=== PATIENT | female | born 1990 | race Caucasian/White ===

== ENCOUNTER 2020-02-22 13:57 | Outpatient (CLI) | payer OTHER, SELFPAY ==
--- NOTE | ~2020-02-22 | US_ITS ---
US breast LT limited DATE: 02/22/2020 14:18 INDICATION: Left breast lump. Family history of breast cancer on maternal side is 35 years old TECHNIQUE: High-resolution ultrasound imaging and color flow imaging targeted at area of clinical com plaint at 10:00 8 cm from nipple COMPARISON: None FINDINGS: There is a parallel circumscribed complicated 18 x 12 x 6 mm cystic lesion with variable th ickness wall. No internal vascularity is noted. There is through transmission and posterior enhanceme nt. This is probably benign. No suspicious mass or shadowing is evident. IMPRESSION: BI-RADS BI-RADS category 3: Probably benign cyst at 10:00 8 cm from nipple Recommendation: 4-6 month left breast ultrasound follow-up Reviewed, dictated and finalized at [facility] Reviewed, dictated and finalized at [facility].
== END 2020-02-22 13:58 | disposition home or self-care (01) ==
LOC: ANHIMG 14:00
PROVIDERS: Visit Provider Obstetrics & Gynecology
DX: N63.20 Unspecified lump in the left breast, unspecified quadrant (principal); R92.8 Other abnormal and inconclusive findings on diagnostic imaging of breast
CPT/HCPCS: 76642

== ENCOUNTER 2020-07-01 09:32 | Outpatient (CLI) | payer OTHER, SELFPAY | END 2020-07-01 09:33 | disposition home or self-care (01) | DX: Z20.828 Contact with and (suspected) exposure to other viral communicable diseases (principal); Z11.59 Encounter for screening for other viral diseases | CPT/HCPCS: 99199; 36415; 86769 ==

== ENCOUNTER 2020-07-22 12:33 | Outpatient (CLI) | payer OTHER, SELFPAY | END 2020-07-22 12:34 | disposition home or self-care (01) | PROVIDERS: Visit Provider Allergy & Immunology | DX: Z91.018 Allergy to other foods (principal) | CPT/HCPCS: 36415; 86003 ==

== ENCOUNTER 2020-10-25 13:59 | Outpatient (CLI) | payer OTHER, SELFPAY ==
[2020-10-25 14:35] LABS: Hematocrit 42.1 % (37.0-47.0); Hemoglobin 14.5 g/dL (12.0-15.0); Mean Corpuscular HGB Conc 34.4 g/dl (32-36); Mean Corpuscular Hemoglobin 30.5 pg (26-34); Mean Corpuscular Volume 88.4 fl (80-100); Mean Platelet Volume 9.3 fl (7.4-10.4); Platelet Count Result 289 k/mm3 (150-375); Red Blood Count 4.76 M/mm3 (4.2-5.4); Red Cell Distribution Width 12.4 % (11.5-14.5); White Blood Count 10.1 K/mm3 (4.5-10.0)
[2020-10-25 15:08] LABS: Erythrocyte Sedimentation Rate 18 mm/hr (0-20)
[2020-10-25 16:32] LABS: Alanine Aminotransferase 17 U/L (4-35); Albumin Level 4.4 g/dL (3.5-5.1); Alkaline Phosphatase 60 U/L (38-126); Anion Gap 7 mmol/L (8-16); Aspartate Amino Transferase 25 U/L (14-36); Bilirubin,Total 0.3 mg/dL (0.2-1.3); Blood Urea Nitrogen 11 mg/dL (7-17); CRP 1.1 mg/dL (<1.0); Calcium 9.1 mg/dL (8.4-10.2); Carbon Dioxide 29 mmol/L (22-30); Chloride 105 mmol/L (98-107); Estimated Glomerular Filt Rate > 60; Glucose 117 mg/dL (65-105); Potassium 3.6 mmol/L (3.4-5.0); Sodium 141 mmol/L (137-145)
== END 2020-10-25 14:00 | disposition home or self-care (01) ==
PROVIDERS: Visit Provider Nurse Practitioner Family
DX: R10.9 Unspecified abdominal pain (principal); R19.7 Diarrhea, unspecified
CPT/HCPCS: 36415; 80053; 85027; 85652; 86140

== ENCOUNTER → 2020-11-22 02:22 | Outpatient (CLI) | payer OTHER, SELFPAY ==
[2020-11-22 19:11] LABS: SARS-CoV-2 RNA PCR Negative
== END ==
PROVIDERS: Visit Provider Internal Medicine Gastroenterology
DX: Z01.812 Encounter for preprocedural laboratory examination (principal); Z20.822 Contact with and (suspected) exposure to COVID-19
CPT/HCPCS: C9803; U0003; U0005

== ENCOUNTER 2020-11-25 02:03 | Day surgery (SDC) | payer OTHER, SELFPAY ==
[2020-11-19 15:35] VITALS: BMI 40.0
[2020-11-25 07:59] VITALS: BP 127/91; PULSE 82; RESP 20; TEMP 36.4; O2SAT 99
--- NOTE | 2020-11-25 07:59 | WPDANESEPPF ---
Anes - Initial Pre Proc Eval Procedure: Operation Date: 11/25/20 09:00 Proposed Procedures p Esophagogastroduodenoscopy & Colonoscopy - Gustabo Ferris MD Date/Time: 11/25/20 07:59 Surgeon: Gustabo Ferris MD Pre Op Diagnosis: diarrhea, blood in stool, nausea Patient Data Age: 30 Gender: F Height: 5 ft 7 in Weight: 115.9 kg Allergies Allergy/AdvReac Type Severity Reaction Status Date / Time tree nut Allergy Swelling Verified 11/25/20 07:58 of Lip/Tongue/Throat Home Medications Medication Instructions Recorded Confirmed Type dextroamphetamine-amphetamine 20 mg PO BID 07/03/19 11/19/20 History [Adderall] ascorbic acid (vitamin C) 500 mg 500 mg PO DAILY 06/27/20 11/19/20 History capsule cholecalciferol (vitamin D3) 10 10 mcg PO DAILY 06/27/20 11/19/20 History mcg (400 unit) capsule cyanocobalamin (vitamin B-12) 1,000 mcg PO DAILY 06/27/20 11/19/20 History 1,000 mcg capsule zinc 50 mg tablet 50 mg PO DAILY 06/27/20 11/19/20 History epinephrine 11/19/20 History ondansetron HCl 4 mg tablet 4 mg PO Q6H PRN #60 tablet 11/21/20 11/25/20 Rx Patient hx anesthesia problems: none Family hx anesthesia problems: none PMFSH Past Medical History Medical History Abdominal pain ADHD Arizmendi esophagus Diarrhea Surgical History Surgical History History of delivery Family History Family History Father Skin cancer Grandparent Skin cancer Sibling Skin cancer Social History Social History Smoking status: Never smoker Alcohol intake: never Substance use: never Substance use type: does not use Living arrangements: with family Spiritual care concerns: No Anes - Eval Final PreProcedure Day of Procedure 11/25/20 07:59 Patient weight: morbidly obese Heart: regular rate and rhythm Lungs: clear to auscultation Airway: Mallampati scale class II Neurological: alert and oriented Last oral intake: >/= 8 hours ASA classification: III Emergent: no Anesthetic plan: proceed Anesthesia type and monitoring: general GIVS and standard monitoring Informed Consent: The patient's anesthetic plan and its attendant risks and benefits were discussed with the patient/family/POA. Questions were solicited and answers provided to the satisfaction of the patient/family/POA.
[2020-11-25] MEDS: LACTATED RINGERS 1,000 ML 150 ML IV CONT (08:13)
--- NOTE | 2020-11-25 08:40 | PM.HPGS ---
History of Present Illness History of Present Illness Consent: Risks, benefits, and alternatives have been discussed and questions answered. Patient agrees to proceed with procedure. Chief complaint: diarrhea, blood in stool, nausea Narrative: Madonna Lam is a 30 year old female was diagnosed with Arizmendi's esophagus several years ago. Recently she had bloody diarrhea the last over 2 weeks. She had not been on antibiotics prior to that. Gradually her symptoms have subsided Review of Systems Review of Systems: All systems reviewed & are unremarkable except as noted in HPI and below PMFSH Past Medical History Medical History Abdominal pain ADHD Arizmendi esophagus Diarrhea Surgical History Surgical History History of delivery Family History Family History Father Skin cancer Grandparent Skin cancer Sibling Skin cancer Social History Social History Smoking status: Never smoker Alcohol intake: never Substance use: never Substance use type: does not use Living arrangements: with family Spiritual care concerns: No Meds Home Medications and Allergies Home Medications Medication Instructions Recorded Confirmed Type dextroamphetamine-amphetamine 20 mg PO BID 07/03/19 11/19/20 History [Adderall] ascorbic acid (vitamin C) 500 mg 500 mg PO DAILY 06/27/20 11/19/20 History capsule cholecalciferol (vitamin D3) 10 10 mcg PO DAILY 06/27/20 11/19/20 History mcg (400 unit) capsule cyanocobalamin (vitamin B-12) 1,000 mcg PO DAILY 06/27/20 11/19/20 History 1,000 mcg capsule zinc 50 mg tablet 50 mg PO DAILY 06/27/20 11/19/20 History epinephrine 11/19/20 History ondansetron HCl 4 mg tablet 4 mg PO Q6H PRN #60 tablet 11/21/20 11/25/20 Rx Allergies Allergy/AdvReac Type Severity Reaction Status Date / Time tree nut Allergy Swelling Verified 11/25/20 07:58 of Lip/Tongue/Throat Vital Signs Vital Signs - 24 hr 11/25/20 07:59 Temperature 36.4 C Pulse Rate 82 Respiratory Rate 20 Blood Pressure 127/91 H Pulse Oximetry 99 Exam Resp: Auscultation: clear to auscultation bilaterally Cardio: Rate: regular rate Rhythm: regular rhythm GI: GI Palp: Yes Soft to palpation and No Tenderness to palpation present (GI) Assessment and Plan Assessment and plan (1) Arizmendi esophagus: Code(s): K22.70 - Arizmendi's esophagus without dysplasia Status: Acute Assessment and Plan: EGD with possible biopsy or dilatation or cautery. (2) Diarrhea: Code(s): R19.7 - Diarrhea, unspecified Status: Acute Assessment and Plan: Colonoscopy with possible biopsy or polypectomy or cautery or injection of substances.
[2020-11-25 09:19] VITALS: BP 101/57; PULSE 73; RESP 24; O2SAT 97
[2020-11-25 09:29] VITALS: BP 117/79; PULSE 85; RESP 22; O2SAT 100
[2020-11-25 09:39] VITALS: BP 122/84; PULSE 78; RESP 23; O2SAT 100
== END 2020-11-25 09:52 | disposition home or self-care (01) ==
PROVIDERS: Visit Provider Internal Medicine Gastroenterology
PROC: 0DJ08ZZ Inspection of Upper Intestinal Tract, Via Natural or Artificial Opening Endoscopic (ICD-10-PCS; CPT 43235; principal; 2020-11-25 09:00)
DX: K52.9 Noninfective gastroenteritis and colitis, unspecified (principal); K21.9 Gastro-esophageal reflux disease without esophagitis; K57.30 Diverticulosis of large intestine without perforation or abscess without bleeding; K22.70 Barrett's esophagus without dysplasia; R11.2 Nausea with vomiting, unspecified; F90.9 Attention-deficit hyperactivity disorder, unspecified type; E66.01 Morbid (severe) obesity due to excess calories; Z68.41 Body mass index [BMI] 40.0-44.9, adult
CPT/HCPCS: 43239; 45380; 87081; 88305; 88313; J2704; J7120

== ENCOUNTER 2021-12-14 10:02 | Emergency (ER) | payer SELFPAY ==
[2021-12-14 10:08] VITALS: BP 128/87; PULSE 83; RESP 20; TEMP 36.4; O2SAT 98
--- NOTE | 2021-12-14 10:23 | ED.GENADULT ---
HPI - General Adult General Chief complaint: Abdominal Pain Stated complaint: Abdominal Pain Time Seen by Provider: 12/14/21 10:23 Source: patient, RN notes reviewed and old records reviewed Mode of arrival: ambulatory Limitations: no limitations History of Present Illness HPI narrative: 31-year-old female who presents to [facility] with complaints of lower back pain and pelvic pressure which started on with burning with urination, states that pain is constant but is worse with urination. Patient reports that she had 100.7F temperature at 0100am today and took some Ibuprofen and also has taken AZO. [facility] and then on Wednesday took misoprostol tabs 4 as directed. Patient reports that they did ultrasound on her and informed her that she had cysts on her ovaries. She reports that she is suppose to follow up with Dr Varghese Barrett on Wednesday. Patient reports that vaginal bleeding is like her regular period flow. Related Data Home Medications Medication Instructions Recorded Confirmed dextroamphetamine-amphetamine 20 mg PO BID 07/03/19 12/14/21 [Adderall] ascorbic acid (vitamin C) 500 mg 500 mg PO DAILY 06/27/20 12/14/21 capsule cholecalciferol (vitamin D3) 10 10 mcg PO DAILY 06/27/20 12/14/21 mcg (400 unit) capsule cyanocobalamin (vitamin B-12) 1,000 mcg PO DAILY 06/27/20 12/14/21 1,000 mcg capsule zinc 50 mg tablet 50 mg PO DAILY 06/27/20 12/14/21 epinephrine 1 ml SUBCUT PRN 11/19/20 12/14/21 Allergies Allergy/AdvReac Type Severity Reaction Status Date / Time tree nut Allergy Swelling Verified 12/14/21 10:21 of Lip/Tongue/Throat Review of Systems Review of Systems: CONSTITUTIONAL: Positive episode of fever early this morning, no chills, or sweats. EYES: Denies visual changes, redness, or discharge. ENT: Denies rhinorrhea, congestion, sore throat, or otalgia. CARDIOVASCULAR: Denies chest pain, palpitations, or edema. RESPIRATORY: Denies cough or dyspnea. GASTROINTESTINAL: lower abdominal pain/pressure,episode X1 of nausea, vomiting, no diarrhea. GENITOURINARY: Positive for dysuria or hematuria. SKIN: Denies rash or itching. MUSCULOSKELETAL: Lower back pain, no joint pain, or myalgia. NEUROLOGIC: Denies headache, numbness, or weakness. PSYCHIATRIC: Denies anxiety or depression. All systems reviewed & are unremarkable except as noted in HPI and below PMFSH Past Medical History Medical History Abdominal pain ADHD Arizmendi esophagus Diarrhea Surgical History Surgical History History of delivery Family History Family History Father Skin cancer Grandparent Skin cancer Sibling Skin cancer Grandparent Family history of malignant neoplasm Family history of malignant neoplasm of ovary Diabetes mellitus Mother Family history of malignant neoplasm of kidney Social History Social History Smoking status: Never smoker Alcohol intake: never Substance use: never Substance use type: does not use Spiritual care concerns: No Comments At time of signature, agree with nursing past medical, surgical, social and family history. There is no relevant family history pertinent to the presenting complaint Exam Narrative: GENERAL: Well-appearing, well-nourished,obese and in no acute distress. HEAD: Normocephalic, atraumatic. EYES: PERRLA and EOMI. ENT: Nares clear, no rhinorrhea or epistaxis. Mucous membranes moist. NECK: Supple.no lymphadenopathy CHEST: Clear to auscultation. No respiratory distress.no tachypnea SAO2 98% on room air HEART: Regular rate and rhythm. No murmur heard. Normal peripheral pulses. ABDOMEN: Soft, tender lower abdomen pelvic pressure, no McBurney point tender
== END 2021-12-14 11:09 | disposition home or self-care (01) ==
PROVIDERS: Emergency Provider Registered Nurse
DX: N39.0 Urinary tract infection, site not specified (principal); F90.9 Attention-deficit hyperactivity disorder, unspecified type; K22.70 Barrett's esophagus without dysplasia
CPT/HCPCS: 81003; 87077; 87086; 87186; 99213; G0463

== ENCOUNTER 2022-02-20 17:17 | Emergency (ER) | payer OTHER, SELFPAY ==
[2022-02-20 17:32] VITALS: BP 140/90; PULSE 93; RESP 16; TEMP 36.1; O2SAT 99
--- NOTE | 2022-02-20 18:26 | ED.HA ---
HPI - Headache General Chief Complaint: Headache Stated Complaint: head pounding light sensitive Time Seen by Provider: 02/20/22 18:26 Source: patient Mode of arrival: ambulatory Limitations: no limitations History of Present Illness HPI Narrative: 31 yo F presents with c/o severe headache for 2 to 3 days, worse to L side. Has felt congested so taking sinus meds with no relief. Also c/o light sensitivity, nausaea. Taking ibuprofen and tylenol with no relief of pain. +nausea at times. Wearing sunglasses. No hx of migraines. Denies fever/chills. ambulatory with steady gait. Speaking in full sentences. Laughing and talkative. All systems reviewed and negative except as noted above. Related Data Home Medications Medication Instructions Recorded Confirmed dextroamphetamine-amphetamine 20 20 mg PO TID 02/20/22 02/21/22 mg tablet Allergies Allergy/AdvReac Type Severity Reaction Status Date / Time tree nut Allergy Swelling Verified 02/21/22 05:28 of Lip/Tongue/Throat Review of Systems Review of Systems: CONSTITUTIONAL: Denies fever, chills, or sweats. EYES: Denies visual changes, redness, or discharge. ENT: Denies rhinorrhea. Reports congestion. Denies sore throat, or otalgia. CARDIOVASCULAR: Denies chest pain, palpitations, or edema. RESPIRATORY: Denies cough or dyspnea. GASTROINTESTINAL: Denies abdominal pain. Reports nausea. Denies vomiting, or diarrhea. GENITOURINARY: Denies dysuria or hematuria. SKIN: Denies rash or itching. MUSCULOSKELETAL: Denies back pain, joint pain, or myalgia. NEUROLOGIC: Reports headache. Denies numbness, or weakness. PSYCHIATRIC: Denies anxiety or depression. All other systems reviewed are negative, except as documented in HPI. [facility]LY [facility] Past Medical History Medical History Abdominal pain ADHD Arizmendi esophagus Diarrhea Headache Surgical History Surgical History History of delivery Family History Family History Father Skin cancer Grandparent Skin cancer Sibling Skin cancer Grandparent Family history of malignant neoplasm Family history of malignant neoplasm of ovary Diabetes mellitus Mother Family history of malignant neoplasm of kidney Social History Social History Smoking status: Never smoker Alcohol intake: never Substance use: never Substance use type: does not use Spiritual care concerns: No Comments At time of signature, agree with nursing past medical, surgical, social and family history. There is no relevant family history pertinent to the presenting complaint. Exam Narrative: GENERAL: This is a well-nourished, well-developed patient, in no apparent distress. HEAD: normocephalic, atraumatic. EYES: PERRL. Sclera clear/white. Vision is grossly intact. EARS: External ears normal, auditory canals clear and without drainage, mild fluid to bilateral TMs. No erythema. NOSE: External nose normal with clear nasal drainage both nares with erythema and mild swelling. Tenderness to left maxillary sinus. THROAT: Mucous membranes moist, clear postnasal drainage. NECK: Neck supple, non-tender without lymphadenopathy, masses or thyromegaly. CARDIOVASCULAR: Regular rate and rhythm without murmurs, gallops, or rubs. RESPIRATORY: Clear to auscultation. Breath sounds equal bilaterally. No wheezes, rales, or rhonchi. SKIN: warm, Dry, intact with no suspicious lesions or rash, good texture and turgor. NEURO: awake, alert, and oriented to person, place and time. There were no obvious focal neurologic abnormalities. EXTREMITIES: No joint tenderness, effusion, or edema noted. Course Course Level of Care: Express Care Visit Vital Signs Vital signs: Vital Signs Temperature 36.1 C L 02/20/22 17:32 Pulse Rate 93
[2022-02-20] MEDS: KETOROLAC (*BKC) 60 MG/2 ML VIAL IM (18:38)
[2022-02-20] MEDS: diphenhydrAMINE HCl CAP 25 MG CAPSULE PO (18:38)
[2022-02-20] MEDS: ONDANSETRON HCL ODT 4 MG TABLET SUBLINGUAL (18:39)
== END 2022-02-20 19:05 | disposition home or self-care (01) ==
PROVIDERS: Emergency Provider Nurse Practitioner Family
DX: J01.90 Acute sinusitis, unspecified (principal); Z20.822 Contact with and (suspected) exposure to COVID-19; F90.9 Attention-deficit hyperactivity disorder, unspecified type; K22.70 Barrett's esophagus without dysplasia
CPT/HCPCS: 87426; 96372; 99213; A9270; C9803; G0463; J1885

== ENCOUNTER 2022-02-21 05:24 | Emergency (ER) | payer OTHER, SELFPAY ==
--- NOTE | ~2022-02-21 | CT_ITS ---
EXAMINATION: CT brain wo con DATE: 02/21/2022 06:50 INDICATION: Headache for 4 days TECHNIQUE: Computed tomography (CT) of the head was performed without intravenous contrast. The mA wa s adjusted according to patient size. Iterative reconstruction technique was employed. Exam dose: 68 1.00 mGy-cm total exam DLP. COMPARISON: None FINDINGS: No intracranial mass lesion or hemorrhage or cerebrovascular accident. No midline shift or mass effect. Normal ventricular size.. No subdural or epidural hematoma. No skull fracture or bone destruction. Prominent patchy opacification of right ethmoid air cells and severe mucoperiosteal thickening of the right and minimal mucoperiosteal thickening of the left sphenoid sinuses. IMPRESSION: No significant intracranial abnormality Right sphenoid, right ethmoid and to a lesser extent left sphenoid sinus disease Reviewed, dictated and finalized at [facility] Reviewed, dictated and finalized at [facility] IMPRESSION: No significant intracranial abnormality Right sphenoid, right ethmoid and to a lesser extent left sphenoid sinus diseas e
[2022-02-21 05:24] VITALS: BP 141/102; PULSE 94; RESP 18; TEMP 37; O2SAT 97
[2022-02-21 06:03] VITALS: BP 134/85; PULSE 75; RESP 18; O2SAT 98
[2022-02-21] MEDS: ONDANSETRON HCL ODT 4 MG TABLET PO (06:14)
[2022-02-21 06:15] LABS: Basophils Absolute Auto 0.06 K/mm3 (0.00-0.10); Basophils Percent Auto 0.5 % (0.0-1.0); Eosinophils Absolute Auto 0.24 K/mm3 (0.02-0.50); Eosinophils Percent Auto 2.2 % (1.0-6.0); Hematocrit 38.8 % (35.0-49.0); Hemoglobin 13.4 g/dL (12.0-15.0); Immature Granulocyte Absolute 0.04 K/mm3 (0.00-0.00); Immature Granulocyte Percent A 0.4 % (0.0-0.0); Lymphocytes Absolute Auto 2.69 K/mm3 (1.10-4.50); Lymphocytes Percent Auto 24.6 % (18.0-42.0); Mean Corpuscular HGB Conc 34.5 g/dL (32.0-36.0); Mean Corpuscular Hemoglobin 31.1 pg (27.0-31.0); Mean Platelet Volume 9.5 fl (9.2-11.8); Monocytes Absolute Auto 0.49 K/mm3 (0.10-0.90); Monocytes Percent Auto 4.5 % (2.0-11.0); Neutrophils Absolute Auto 7.4 K/mm3 (1.7-7.2); Neutrophils Percent Auto 67.8 % (50.0-70.0); Platelet Count Result 256 K/mm3 (150-420); Red Blood Count 4.31 M/mm3 (4.20-5.40); Red Cell Distribution Width 12.6 % (11.6-14.4); White Blood Count 10.9 K/mm3 (4.8-10.8)
[2022-02-21] MEDS: MORPHINE SULFATE (*CRX) 4 MG/ML INJ IM (06:15)
[2022-02-21 06:22] LABS: Amphetamine Screen Urine Positive (Negative); Barbiturate Screen Urine Negative (Negative); Benzodiazepines Screen Urine Negative (Negative); Cannabinoid Screen Urine Positive (Negative); Cocaine Screen Urine Negative (Negative); Methadone Screen Urine Negative (Negative); Opiate Screen Urine Negative (Negative); Phencyclidine Screen Urine Negative (Negative)
--- NOTE | 2022-02-21 06:28 | PC.NURSE ---
Pt states her father is coming up to the hospital to take pt and her daughter home due to receiving morphine.
[2022-02-21 06:31] LABS: SPREG INTERNAL CONTROL Positive; Serum Qual hCG Negative
[2022-02-21 06:32] LABS: Alanine Aminotransferase 18 U/L (14-59); Alkaline Phosphatase 49 U/L (46-116); Anion Gap 8 mmol/L (8-16); Aspartate Amino Transferase 15 U/L (15-37); Bilirubin,Total 0.4 mg/dL (0.00-1.00); Blood Urea Nitrogen 14 mg/dL (7-18); Calcium 8.5 mg/dL (8.5-10.1); Carbon Dioxide 27 mmol/L (21-32); Chloride 106 mmol/L (98-108); Estimated CRCL calculation 113 ml/min; Estimated Glomerular Filt Rate > 60; Glucose 90 mg/dL (70-99); Osmolality Calculated 292 mOsm/kg (285-295); Potassium 4.1 mmol/L (3.5-5.1); Sodium 141 mmol/L (136-145); Total Protein 6.7 g/dL (6.4-8.2)
[2022-02-21 06:35] LABS: Ethanol < 3 mg/dL (0-6)
--- NOTE | 2022-02-21 06:42 | PC.NURSE ---
Pt's father has arrived on scene to watch pt's daughter and drive pt and her daughter home.
--- NOTE | 2022-02-21 07:12 | ED.HA ---
HPI - Headache General Chief Complaint: Headache Stated Complaint: PAIN Time Seen by Provider: 02/21/22 05:28 Source: patient and RN notes reviewed Mode of arrival: ambulatory Limitations: no limitations History of Present Illness HPI Narrative: worst [place] of her life x 3 days. See Urgent Care medical records. MD elicited complaint: headache Onset (ago): day(s) (3) Onset description: on awakening Severity: moderate Pain scale (0-10): 7 Exacerbating factors: light and noise Relieving factors: prescription medication Associated symptoms: none Related Data Home Medications Medication Instructions Recorded Confirmed dextroamphetamine-amphetamine 20 20 mg PO TID 02/20/22 02/21/22 mg tablet Allergies Allergy/AdvReac Type Severity Reaction Status Date / Time tree nut Allergy Swelling Verified 02/21/22 05:28 of Lip/Tongue/Throat Review of Systems Review of Systems: All systems reviewed & are unremarkable except as noted in HPI and below Constitutional: Constitutional: Reports no additional constitutional complaints Eyes: Eyes: Reports no additional eye complaints ENT: Reports system reviewed and no additional complaints, except as documented Cardiovascular: Cardiovascular: Reports no additional cardiovascular complaints Respiratory: Respiratory: Reports no additional respiratory complaints Gastrointestinal: Gastrointestinal: Reports no additional gastrointestinal complaints Genitourinary: Genitourinary: Reports no additional female genitourinary complaints Musculoskeletal: Musculoskeletal: Reports no additional musculoskeletal complaints Integumentary/Breasts: Skin/Breast: Reports system reviewed and no additional complaints, except as docu Neurologic: Reports system reviewed and no additional complaints, except as documented Psychiatric: Psychiatric: Reports no additional psychiatric complaints Endocrine: Endocrine: Reports no additional endocrine complaints Hematologic/Lymphatic: Hematologic/Lymphatic: Reports no additional hematologic/lymphatic complaints Allergic/Immunologic: Allergic/Immunologic: Reports no additional allergic/immunologic complaints [facility] Past Medical History Medical History Abdominal pain ADHD Arizmendi esophagus Diarrhea Headache Surgical History Surgical History History of delivery Family History Family History Father Skin cancer Grandparent Skin cancer Sibling Skin cancer Grandparent Family history of malignant neoplasm Family history of malignant neoplasm of ovary Diabetes mellitus Mother Family history of malignant neoplasm of kidney Social History Social History Smoking status: Never smoker Alcohol intake: never Substance use: never Substance use type: does not use Spiritual care concerns: No Exam Const: General: healthy appearing and no acute distress Nutritional Appearance: well nourished Orientation/consciousness: patient oriented x3 Limitations: no limitations HENMT: Head: normal to inspection Ears: external ears normal, TM's normal bilaterally and EAC's normal General nose exam: Normal external nose present and Normal nares present Face and sinus: normal facial exam and sinuses nontender Mouth: Yes Normal oral and palatal mucosa present and Yes moist mucous membranes Teeth and gingiva: dentition normal Throat: posterior oropharynx normal Eyes: Conjunctivae: conjunctivae normal Pupils: Equal, round and reactive pupils present EOM: EOMs intact bilaterally Neck: Neck: normal visual inspection, no lymphadenopathy and no meningeal signs Chest: Chest palpation & inspection: normal inspection of the chest Resp: Effort & Inspection: normal respiratory effort Auscultation: clear t
[2022-02-21 08:27] VITALS: BP 132/64; PULSE 71; RESP 16; TEMP 36.4; O2SAT 97
== END 2022-02-21 08:28 | disposition home or self-care (01) ==
PROVIDERS: Emergency Provider Emergency Medicine
DX: R51.9 Headache, unspecified (principal); F90.9 Attention-deficit hyperactivity disorder, unspecified type; Z79.899 Other long term (current) drug therapy; K22.70 Barrett's esophagus without dysplasia
CPT/HCPCS: 36415; 70450; 80053; 80307; 84703; 85025; 96372; 99284; A9270; J2270

== ENCOUNTER 2023-03-28 09:20 | Emergency (ER) | payer OTHER, SELFPAY ==
[2023-03-28 09:22] VITALS: BP 136/99; PULSE 82; RESP 19; TEMP 36.7; O2SAT 97
[2023-03-28 09:25] VITALS: BP 136/99; PULSE 77; RESP 17; TEMP 36.6; O2SAT 98
[2023-03-28] MEDS: methylPREDNISolone SOD SUCC 125 MG VIAL IM (09:39)
--- NOTE | 2023-03-28 09:57 | ED.ALLEREA ---
HPI - Allergic Reaction General Chief complaint: Allergic Reaction Stated complaint: allergic reaction Time Seen by Provider: 03/28/23 09:22 Source: patient Mode of arrival: ambulatory Limitations: no limitations History of Present Illness HPI narrative: patient is a 32-year-old female with known allergies and typically has EpiPen. She is out of EpiPen. She comes to the emergency room with some tingling of her lips and throat after having some allergies from outside. Her typical allergy is from nuts. complaint: allergic reaction Onset (ago): day(s) Exposure: unknown Symptoms: itching, lip swelling and difficulty swallowing Severity: mild Treatment prior to arrival: benadryl Previous Allergic Reaction History: prior ED visit(s) Related Data Home Medications Medication Instructions Recorded Confirmed dextroamphetamine-amphetamine 30 30 mg PO BID 03/28/23 03/28/23 mg tablet Allergies Allergy/AdvReac Type Severity Reaction Status Date / Time tree nut Allergy Swelling Verified 03/28/23 09:22 of Lip/Tongue/Throat Review of Systems Review of Systems: All systems reviewed & are unremarkable except as noted in HPI and below Constitutional: Constitutional: Reports no additional constitutional complaints Eyes: Eyes: Reports no additional eye complaints ENT: Reports system reviewed and no additional complaints, except as documented Cardiovascular: Cardiovascular: Reports no additional cardiovascular complaints Respiratory: Respiratory: Reports no additional respiratory complaints Gastrointestinal: Gastrointestinal: Reports no additional gastrointestinal complaints Genitourinary: Genitourinary: Reports no additional female genitourinary complaints Musculoskeletal: Musculoskeletal: Reports no additional musculoskeletal complaints Integumentary/Breasts: Skin/Breast: Reports system reviewed and no additional complaints, except as docu Neurologic: Reports system reviewed and no additional complaints, except as documented Psychiatric: Psychiatric: Reports no additional psychiatric complaints Endocrine: Endocrine: Reports no additional endocrine complaints Hematologic/Lymphatic: Hematologic/Lymphatic: Reports no additional hematologic/lymphatic complaints Allergic/Immunologic: Allergic/Immunologic: Reports no additional allergic/immunologic complaints [facility] Past Medical History Medical History Abdominal pain ADHD Arizmendi esophagus Diarrhea Headache Surgical History Surgical History History of delivery Family History Family History Father Skin cancer Grandparent Skin cancer Sibling Skin cancer Grandparent Family history of malignant neoplasm Family history of malignant neoplasm of ovary Diabetes mellitus Mother Family history of malignant neoplasm of kidney Social History Social History Smoking status: Never smoker Alcohol intake: never Substance use: never Substance use type: does not use Living arrangements: with family Occupation/Education: occupation Gender identity (if verbalized by the patient): Female Spiritual care concerns: No Exam Const: General: healthy appearing, no acute distress and alert HENMT: Head: normal to inspection, no contusions and no hematomas Eyes: Conjunctivae: conjunctivae normal and normal conjunctivae Pupils: Equal, round and reactive pupils present EOM: EOMs intact bilaterally Neck: Neck: normal visual inspection, no lymphadenopathy and no meningeal signs Chest: Chest palpation & inspection: normal inspection of the chest Resp: Effort & Inspection: normal respiratory effort, not labored and no retractions Auscultation: clear to auscultation bilaterally Cardio: Rate: regular rate Rhyth
[2023-03-28 10:18] VITALS: BP 135/85; PULSE 77; RESP 18; TEMP 36.6; O2SAT 99
== END 2023-03-28 10:18 | disposition home or self-care (01) ==
PROVIDERS: Emergency Provider Emergency Medicine; PCP Family Medicine
DX: T78.40XA Allergy, unspecified, initial encounter (principal)
CPT/HCPCS: 96372; 99283; J2930

== ENCOUNTER 2023-04-01 09:19 | Outpatient (CLI) | payer OTHER, SELFPAY ==
[2023-04-01 09:44] LABS: Appearance Urine Clear (Clear); Bilirubin Urine Negative (Negative); Blood Urine Negative (Negative); Color Urine Light Yellow (Yellow); Glucose Urine UA Negative (Negative); Ketones Urine Negative (Negative); Leukocyte Esterase Ur Negative (Negative); Nitrate Urine Negative (Negative); Protein Urine Negative (Negative); Urobilinogen Urine 0.2 mg/dL (0.2-1.0)
[2023-04-01 09:46] LABS: Basophils Absolute Auto 0.06 K/mm3 (0.00-0.10); Basophils Percent Auto 0.6 % (0.0-1.0); Eosinophils Absolute Auto 0.25 K/mm3 (0.02-0.50); Eosinophils Percent Auto 2.4 % (1.0-6.0); Hematocrit 40.8 % (35.0-49.0); Hemoglobin 14.1 g/dL (12.0-15.0); Immature Granulocyte Absolute 0.08 K/mm3 (0.00-0.00); Immature Granulocyte Percent A 0.8 % (0.0-0.0); Immature Platelet Fraction Pct 3.2 % (1.0-7.0); Lymphocytes Absolute Auto 2.96 K/mm3 (1.10-4.50); Lymphocytes Percent Auto 28.1 % (18.0-42.0); Mean Corpuscular HGB Conc 34.6 g/dL (32.0-36.0); Mean Corpuscular Hemoglobin 30.9 pg (27.0-31.0); Mean Corpuscular Volume 89.5 fL (78.0-102.0); Mean Platelet Volume 9.8 fl (9.2-11.8); Monocytes Absolute Auto 0.48 K/mm3 (0.10-0.90); Monocytes Percent Auto 4.5 % (2.0-11.0); Neutrophils Absolute Auto 6.7 K/mm3 (1.7-7.2); Neutrophils Percent Auto 63.6 % (50.0-70.0); Platelet Count Result 269 K/mm3 (150-420); Red Blood Count 4.56 M/mm3 (4.20-5.40); Red Cell Distribution Width 12.2 % (11.6-14.4); White Blood Count 10.6 K/mm3 (4.8-10.8)
[2023-04-01 09:53] LABS: Add Urine Microscopic? NO
[2023-04-01 10:25] LABS: Alanine Aminotransferase 23 U/L (14-59); Albumin Level 3.1 g/dL (3.4-5.0); Alkaline Phosphatase 79 U/L (46-116); Anion Gap 11 mmol/L (8-16); Aspartate Amino Transferase 21 U/L (15-37); Bilirubin,Total 0.7 mg/dL (0.00-1.00); Blood Urea Nitrogen 13 mg/dL (7-18); Calcium 8.8 mg/dL (8.5-10.1); Carbon Dioxide 23 mmol/L (21-32); Chloride 105 mmol/L (98-108); Cholesterol 220 mg/dL (0-200); Estimated Glomerular Filt Rate > 60; Free T4 Free Thyroxine 0.93 ng/dL (0.76-1.46); Glucose 88 mg/dL (70-99); HDL Direct 56 mg/dL (40-60); LDL Cholesterol Calculated 137 mg/dL (<130); Osmolality Calculated 287 mOsm/kg (285-295); Potassium 4.7 mmol/L (3.5-5.1); Sodium 139 mmol/L (136-145); Thyroid Stimulating Hormone 2.19 uIU/mL (0.36-3.74); Total Protein 6.4 g/dL (6.4-8.2); Triglycerides 136 mg/dL (0-150)
== END 2023-04-01 09:20 | disposition home or self-care (01) ==
LOC: CHSLAB 09:22
PROVIDERS: PCP Family Medicine; Visit Provider Family Medicine
DX: Z00.00 Encounter for general adult medical examination without abnormal findings (principal); F90.0 Attention-deficit hyperactivity disorder, predominantly inattentive type; R53.83 Other fatigue; R63.5 Abnormal weight gain; J30.9 Allergic rhinitis, unspecified
CPT/HCPCS: 36415; 80053; 80061; 81003; 84439; 84443; 85025; 85055

== ENCOUNTER 2023-04-26 10:33 | Emergency (ER) | payer OTHER, SELFPAY ==
[2023-04-26 10:45] VITALS: BP 133/90; PULSE 65; RESP 16; TEMP 36.2; O2SAT 99
--- NOTE | 2023-04-26 10:51 | ED.EYEPROB ---
HPI - Eye Problem General Chief complaint: Eye Problems Stated complaint: right eye History of Present Illness HPI Narrative: patient presents with right eye redness and irritation eye was matted shut this am no vision problems no pain to eye Related Data Home Medications Medication Instructions Recorded Confirmed dextroamphetamine-amphetamine 30 30 mg PO BID 03/28/23 03/28/23 mg tablet norgestrel 0.3 mg-ethinyl tablet 04/26/23 estradiol 30 mcg tablet (Jame (28)) Allergies Allergy/AdvReac Type Severity Reaction Status Date / Time tree nut Allergy Swelling Verified 03/28/23 09:22 of Lip/Tongue/Throat Review of Systems Review of Systems: CONSTITUTIONAL: Denies fever, chills, or sweats. EYES: Denies visual changes, redness, or discharge. ENT: Denies rhinorrhea, congestion, sore throat, or otalgia. CARDIOVASCULAR: Denies chest pain, palpitations, or edema. RESPIRATORY: Denies cough or dyspnea. GASTROINTESTINAL: Denies abdominal pain, nausea, vomiting, or diarrhea. GENITOURINARY: Denies dysuria or hematuria. SKIN: Denies rash or itching. MUSCULOSKELETAL: Denies back pain, joint pain, or myalgia. NEUROLOGIC: Denies headache, numbness, or weakness. PSYCHIATRIC: Denies anxiety or depression. [facility] Past Medical History Medical History Abdominal pain ADHD Arizmendi esophagus Diarrhea Headache Surgical History Surgical History History of delivery Family History Family History Father Skin cancer Grandparent Skin cancer Sibling Skin cancer Grandparent Family history of malignant neoplasm Family history of malignant neoplasm of ovary Diabetes mellitus Mother Family history of malignant neoplasm of kidney Social History Social History Smoking status: Never smoker Alcohol intake: never Substance use: never Substance use type: does not use Living arrangements: with family Occupation/Education: occupation Gender identity (if verbalized by the patient): Female Spiritual care concerns: No Comments At time of signature, agree with nursing past medical, surgical, social and family history. There is no relevant family history pertinent to the presenting complaint Exam Narrative: GENERAL: Well-appearing, well-nourished, and in no acute distress. HEAD: Normocephalic, atraumatic. EYES: PERRLA and EOMI. ENT: Nares clear, no rhinorrhea or epistaxis. Mucous membranes moist. NECK: Supple. CHEST: Clear to auscultation. No respiratory distress. HEART: Regular rate and rhythm. No murmur heard. Normal peripheral pulses. ABDOMEN: Soft, nontender, nondistended, normal active bowel sounds. EXTREMITIES: Normal range of motion. No edema. SKIN: Warm, dry, no rash. NEURO: No focal deficits. Alert and oriented x3. Beaver Coma Scale Eye Opening: Spontaneous 4 Stef Coma Scale Motor: Obeys Commands 6 Beaver Coma Scale Verbal: Oriented 5 Stef Coma Scale Total 15 Eyes: Conjunctivae: conjunctival abnormality (conjunctivitis) right Course Course Level of Care: Express Care Visit Vital Signs Vital signs: Vital Signs Temperature 36.2 C L 04/26/23 10:45 Pulse Rate 65 04/26/23 10:45 Respiratory Rate 16 04/26/23 10:45 Blood Pressure 133/90 04/26/23 10:45 Pulse Oximetry 99 04/26/23 10:45 Oxygen Delivery Room Air 04/26/23 10:45 Temperature 36.2 C L 04/26/23 10:45 Pulse Rate 65 04/26/23 10:45 Respiratory Rate 16 04/26/23 10:45 Blood Pressure 133/90 04/26/23 10:45 Pulse Oximetry 99 04/26/23 10:45 Oxygen Delivery Room Air 04/26/23 10:45 Discharge Plan Discharge Clinical Impression: Bacterial conjunctivitis Patient Disposition: Home, Self-Care Condition: Stable Instructions:
== END 2023-04-26 11:02 | disposition home or self-care (01) ==
PROVIDERS: Emergency Provider Nurse Practitioner Family; PCP Family Medicine
DX: H10.89 Other conjunctivitis (principal)
CPT/HCPCS: 99213; G0463

== ENCOUNTER 2023-06-24 08:08 | Emergency (ER) | payer OTHER, SELFPAY ==
[2023-06-24 08:23] VITALS: BP 141/98; PULSE 109; RESP 16; TEMP 36.6; O2SAT 96
--- NOTE | 2023-06-24 08:37 | ED.URI ---
HPI - URI/Sore Throat General Chief Complaint: Upper Respiratory Infection Stated Complaint: Sore Throat/Cough Time Seen by Provider: 06/24/23 08:37 Source: patient, RN notes reviewed and old records reviewed Mode of arrival: ambulatory Limitations: no limitations History of Present Illness HPI Narrative: 32 year old female presents to [facility] with 3 day history of acute cough and did do a virtual visit yesterday and received cough medication RX that did nothing to help her cough. Patient reports that she has also tried OTC Mucinex DM for her symptoms without relief. Patient replies that she has some discomfort between her shoulder blades from coughing so hard. Patient denies any shortness of breath or any known fevers, reports some headache discomfort but denies any sinus pressure, has some sinus drainage also. Is taking daily Zyrtec and also Flonase daily.Patient is concerned with her symptoms because she is scheduled for procedure tomorrow. MD elicited complaint: cough and sore throat Onset (ago): day(s) (3) Able to tolerate fluids by mouth: Yes Treatments prior to arrival: other (cough syrup, Mucinex DM) Related Data Home Medications Medication Instructions Recorded Confirmed dextroamphetamine-amphetamine 30 30 mg PO BID 03/28/23 06/24/23 mg tablet norgestrel 0.3 mg-ethinyl 1 tablet PO DAILY 04/26/23 06/24/23 estradiol 30 mcg tablet (Jame (28)) fluticasone propionate 50 intranasal 06/24/23 mcg/actuation nasal spray,suspension promethazine-DM 6.25 mg-15 mg/5 mL ml 06/24/23 oral syrup Allergies Allergy/AdvReac Type Severity Reaction Status Date / Time tree nut Allergy Swelling Verified 06/15/23 10:43 of Lip/Tongue/Throat Review of Systems Review of Systems: CONSTITUTIONAL: Denies malaise, chills, sweats, or fever. EYES: Denies visual changes, redness, or discharge. ENT: Reports rhinorrhea, congestion, no sinus pain, no otalgia and scratchy sore throat with some hoarseness CARDIOVASCULAR: Denies chest pain, palpitations, or edema. RESPIRATORY: Reports cough.? Denies dyspnea.reports some pain between shoulder blades related to coughing GASTROINTESTINAL: Denies abdominal pain, nausea, vomiting, diarrhea SKIN: Denies rash or itching. MUSCULOSKELETAL: Denies myalgia. NEUROLOGIC: Reports headache. All systems reviewed & are unremarkable except as noted in HPI and below PMFSH Past Medical History Medical History Abdominal pain ADHD Arizmendi esophagus Diarrhea Headache Surgical History Surgical History History of delivery Family History Family History Father Skin cancer Grandparent Skin cancer Sibling Skin cancer Grandparent Family history of malignant neoplasm Family history of malignant neoplasm of ovary Diabetes mellitus Mother Family history of malignant neoplasm of kidney Social History Social History Smoking status: Never smoker Alcohol intake: never Substance use: never Substance use type: does not use Living arrangements: with family Occupation/Education: occupation Gender identity (if verbalized by the patient): Female Spiritual care concerns: No Comments At time of signature, agree with nursing past medical, surgical, social and family history. There is no relevant family history pertinent to the presenting complaint Exam Narrative: GENERAL: Well-appearing, well-nourished,obese, and in no acute distress. HEAD: Normocephalic EYES: PERRLA, conjunctivae clear ENT: Nares clear, turbinates edematous and erythematous, clear discharge. Mucous membranes moist. TM pearly lu with dull light reflex bilaterally; no tragal tenderness. Oropharynx erythematous without lesions. Tonsils no
== END 2023-06-24 09:21 | disposition home or self-care (01) ==
PROVIDERS: Emergency Provider Registered Nurse; PCP Family Medicine
DX: J06.9 Acute upper respiratory infection, unspecified (principal); R05.9 Cough, unspecified; F90.9 Attention-deficit hyperactivity disorder, unspecified type; K22.70 Barrett's esophagus without dysplasia
CPT/HCPCS: 99213; G0463

== ENCOUNTER 2023-07-22 13:26 | Outpatient (CLI) | payer OTHER, SELFPAY ==
[2023-07-22 13:36] LABS: Hematocrit 42.1 % (35.0-49.0); Hemoglobin 14.6 g/dL (12.0-15.0)
== END 2023-07-22 13:27 | disposition home or self-care (01) ==
LOC: CHSLAB 13:27
PROVIDERS: PCP Family Medicine; Visit Provider Obstetrics & Gynecology
DX: Z01.818 Encounter for other preprocedural examination (principal); N94.6 Dysmenorrhea, unspecified
CPT/HCPCS: 36415; 85014; 85018

== ENCOUNTER 2023-07-23 03:50 | Day surgery (SDC) | payer OTHER, SELFPAY ==
[2023-06-15 10:46] VITALS: BMI 38.7
--- NOTE | 2023-06-15 10:55 | PC.NURSE ---
Report to the Outpatient Waiting Room, entrance under the green pavilion located off [facility], at time _0815_ on date __06/25/23. Planned Procedure Time: _1015__. Time changes happen often and if your time is changed the preop area will call you the afternoon before. - You and your visitor will be asked to self-screen and do not enter if you have any COVID symptoms. - A mask is optional within the hospital at this time. Patients may have clear liquids (water, carbonated beverages, clear teas, apple juice) until 3 hours prior to surgery with a maximum of 20 ounces. - No food from midnight until time of surgery - Infants may have breast milk until 4 hours before surgery, formula 6 hours prior to surgery. - Children will be allowed to drink immediately following surgery. If applicable, please bring a bottle or sippy cup to assist with drinking. Juice, water, soda, and popsicles are readily available. For infants on formula, please bring formula the day of surgery. Pacifiers are allowed. Take the following medications with a SIP of water the morning of surgery: adderral DO NOT STOP ANY OF YOUR OTHER PRESCRIPTION MEDICATIONS PRIOR TO SURGERY ?EXCEPT THE FOLLOWING Medications to discontinue per physician none Date to take last dose Please no make-up, nail mohawk, hairspray, perfume, deodorant, or body powder the day of surgery. No jewelry (including any body piercings) or valuables the day of surgery, leave them at home. Please take a shower or bath the night before, or the morning of, surgery with an antibacterial soap. Wear comfortable, loose fitting clothing. Children are encouraged to wear pajamas. - Jewelry must be removed prior to entering the operating room. Rings and piercings that are not removed may be cut off. - The hospital will not accept responsibility for valuables. - Please leave all valuables, including medications, at home the day of surgery. If you are going home after surgery, a licensed tier truck driver must drive you home. - NO public transportation without another adult if you receive anesthesia. - We recommend that an adult stay with you for 24 hours following discharge. - We also recommend that you do not drive, make important decision, drink alcoholic beverages, or take any drugs that were not prescribed by your health care provider for at least 24 hours after your discharge time. For Pediatric surgeries, we recommend two adults accompany the child home. Follow any additional instructions given to you from your surgeon. If you or anyone in your household have experienced Covid symptoms in the past week, please notify your surgeon or the nurse liaison at the phone number below for possible testing. Telephone instructions given to _patient_and asked if any additional questions and then verbalized understanding. Patient advised to call surgeon office or pre surgery nurse liaison [phone] if any additional questions.
--- NOTE | 2023-06-22 07:20 | PM.IMHP ---
H&P: HPI History of Present Illness Date/Time: 06/22/23 07:20 Chief Complaint: Menometrorrhagia Narrative: Since 32-year-old female complaining of excessive heavy bleeding. She has a ultrasound that showed thickened endometrium in the endometrial canal shows up to 1cm with irregular borders on image. She will undergo hysteroscopy dilatation curettage. Risks and benefits were were reviewed including but not exclusive of , aspiration pneumonia, bleeding, transfusion, perforation injury to bowel, bladder, ureters, or other internal organs with need for open laparotomy. She had all questions answered. She asked to proceed she did received the ACOG handouts hysteroscopy and dilatation and curettage respectively PMFSH Past Medical History Medical History Abdominal pain ADHD Arizmendi esophagus Diarrhea Headache Surgical History Surgical History History of delivery Family History Family History Father Skin cancer Grandparent Skin cancer Sibling Skin cancer Grandparent Family history of malignant neoplasm Family history of malignant neoplasm of ovary Diabetes mellitus Mother Family history of malignant neoplasm of kidney Social History Social History Smoking status: Never smoker Alcohol intake: never Substance use: never Substance use type: does not use Living arrangements: with family Occupation/Education: occupation Gender identity (if verbalized by the patient): Female Spiritual care concerns: No Meds Home Medications and Allergies Home Medications Medication Instructions Recorded Confirmed Type dextroamphetamine-amphetamine 30 30 mg PO BID 03/28/23 06/15/23 History mg tablet epinephrine 0.3 mg/0.3 mL 0.3 mg (0.3 mL) IM Q5-15M PRN 03/28/23 06/15/23 Rx injection, auto-injector (EpiPen) hypersensitivity reaction #2 ea norgestrel 0.3 mg-ethinyl 1 tablet PO DAILY 04/26/23 06/15/23 History estradiol 30 mcg tablet (Jame (28)) cetirizine 10 mg tablet (Zyrtec) 10 mg PO BID 06/15/23 06/15/23 History famotidine 20 mg tablet 20 mg PO BID 06/15/23 06/15/23 History Allergies Allergy/AdvReac Type Severity Reaction Status Date / Time tree nut Allergy Swelling Verified 06/15/23 10:43 of Lip/Tongue/Throat Exam Const: General: cooperative, healthy appearing and comfortable Nutritional Appearance: average body habitus Orientation/consciousness: oriented to person, oriented to place and oriented to time HENMT: Head: normal to inspection Resp: Effort & Inspection: normal respiratory effort Cardio: Rate: regular rate Rhythm: regular rhythm Heart sounds: S1 normal heart sound present and S2 normal heart sound present GI: Inspection: normal to inspection : External Female Exam: normal external appearance Speculum Exam - Vagina: normal appearance of the vagina and vaginal bleeding Speculum Exam - Cervix: normal appearance of the cervix Bimanual exam- vagina & uterus: enlarged Bimanual Exam- Adnexa, other: no masses Assessment and Plan Assessment and plan (1) Menorrhagia: Code(s): N92.0 - Excessive and frequent menstruation with regular cycle Status: Acute Plan Hysteroscopy/dilatation and curettage
--- NOTE | 2023-06-24 14:10 | P.PNAN_ITS ---
Anes - Initial Pre Proc Eval Procedure: Operation Date: 06/25/23 09:15 Proposed Procedures p Hysteroscopy, Dilation and Curettage - London Barrett MD Date/Time: 06/24/23 14:10 Surgeon: London Barrett MD Pre Op Diagnosis: heavy bleeding, dysmenorrhea Patient Data Age: 32 Gender: F Height: 1.7 m Weight: 112 kg Allergies Allergy/AdvReac Type Severity Reaction Status Date / Time tree nut Allergy Swelling Verified 06/15/23 10:43 of Lip/Tongue/Throat Home Medications Medication Instructions Recorded Confirmed Type dextroamphetamine-amphetamine 30 30 mg PO BID 03/28/23 06/24/23 History mg tablet epinephrine 0.3 mg/0.3 mL 0.3 mg (0.3 mL) IM Q5-15M PRN 03/28/23 06/24/23 Rx injection, auto-injector (EpiPen) hypersensitivity reaction #2 ea norgestrel 0.3 mg-ethinyl 1 tablet PO DAILY 04/26/23 06/24/23 History estradiol 30 mcg tablet (Jame (28)) codeine 10 mg-guaifenesin 100 mg/5 5 ml PO Q6H PRN cough #120 mL 06/24/23 Rx mL oral liquid fluticasone propionate 50 intranasal 06/24/23 History mcg/actuation nasal spray,suspension promethazine-DM 6.25 mg-15 mg/5 mL ml 06/24/23 History oral syrup hydrocodone 5 mg-acetaminophen 325 1 tablet PO Q4H PRN pain #20 tabs 06/25/23 Rx mg tablet Patient hx anesthesia problems: none Family hx anesthesia problems: none Results Review: All pre-operative results and documents have been reviewed as part of the pre- operative evaluation. [facility] Past Medical History Medical History Abdominal pain ADHD Arizmendi esophagus Diarrhea Headache Surgical History Surgical History History of delivery Family History Family History Father Skin cancer Grandparent Skin cancer Sibling Skin cancer Grandparent Family history of malignant neoplasm Family history of malignant neoplasm of ovary Diabetes mellitus Mother Family history of malignant neoplasm of kidney Social History Social History Smoking status: Never smoker Alcohol intake: never Substance use: never Substance use type: does not use Living arrangements: with family Occupation/Education: occupation Gender identity (if verbalized by the patient): Female Spiritual care concerns: No Anes - Eval Final PreProcedure Day of Procedure 06/24/23 14:10 Patient weight: obese Heart: regular rate and rhythm Lungs: clear to auscultation Airway: Mallampati scale class II Neurological: alert and oriented Last oral intake: >/= 8 hours ASA classification: II Emergent: no Anesthetic plan: proceed Anesthesia type and monitoring: general GIVS and standard monitoring Results Review: All pre-operative results and documents have been reviewed as part of the pre- operative evaluation. Informed Consent: The patient's anesthetic plan and its attendant risks and benefits were discussed with the patient/family/POA. Questions were solicited and answers provided to the satisfaction of the patient/family/POA.
--- NOTE | 2023-06-25 06:36 | WPDHPUPDATE1 ---
History and Physical Update Update Date/Time: 06/25/23 06:36 History and Physical has been reviewed, including an updated exam of the patient. There are NO changes in the patient's condition. Risks, benefits, and alternatives have been discussed and questions answered. Patient agrees to proceed with procedure.
--- NOTE | 2023-07-20 09:20 | PC.NURSE ---
Report to the Outpatient Waiting Room, entrance under the green pavilion located off [facility], at time on date . Planned Procedure Time: . Time changes happen often and if your time is changed the preop area will call you the afternoon before. - You and your visitor will be asked to self-screen and do not enter if you have any COVID symptoms. - A mask is optional within the hospital at this time. Patients may have clear liquids (water, carbonated beverages, clear teas, apple juice) until 3 hours prior to surgery with a maximum of 20 ounces. - No food from midnight until time of surgery - Infants may have breast milk until 4 hours before surgery, infant formula 6 hours prior to surgery. - Children will be allowed to drink immediately following surgery. If applicable, please bring a bottle or sippy cup to assist with drinking. Juice, water, soda, and popsicles are readily available. For infants on formula, please bring formula the day of surgery. Pacifiers are allowed. Take the following medications with a SIP of water the morning of surgery: ADDERALL, BCP DO NOT STOP ANY OF YOUR OTHER PRESCRIPTION MEDICATIONS PRIOR TO SURGERY ?EXCEPT THE FOLLOWING Medications to discontinue per physician ____ZINC Date to take last dose 07/20/23 Please no make-up, nail urdu, hairspray, perfume, deodorant, or body powder the day of surgery. No jewelry (including any body piercings) or valuables the day of surgery, leave them at home. Please take a shower or bath the night before, or the morning of, surgery with an antibacterial soap. Wear comfortable, loose fitting clothing. Children are encouraged to wear pajamas. - Jewelry must be removed prior to entering the operating room. Rings and piercings that are not removed may be cut off. - The hospital will not accept responsibility for valuables. - Please leave all valuables, including medications, at home the day of surgery. If you are going home after surgery, a licensed subway train driver must drive you home. - NO public transportation without another adult if you receive anesthesia. - We recommend that an adult stay with you for 24 hours following discharge. - We also recommend that you do not drive, make important decision, drink alcoholic beverages, or take any drugs that were not prescribed by your health care provider for at least 24 hours after your discharge time. For Pediatric surgeries, we recommend two adults accompany the child home. Follow any additional instructions given to you from your surgeon. If you or anyone in your household have experienced Covid symptoms in the past week, please notify your surgeon or the nurse liaison at the phone number below for possible testing. Telephone instructions given to ___PATIENT and asked if any additional questions and then verbalized understanding. Patient advised to call surgeon office or pre surgery nurse liaison [phone] if any additional questions.
--- NOTE | 2023-07-20 09:22 | PC.NURSE ---
Pt denies any change in health, medications reviewed and updated, new instructions given. Pt denies any questions. `
--- NOTE | 2023-07-20 12:23 | PM.IMHP ---
H&P: HPI History of Present Illness Date/Time: 07/20/23 12:23 Chief Complaint: Irregular heavy bleeding Narrative: A 32. Is for hysteroscopy dilatation curettage secondary to crampy periods. Ultrasound showed thick endometrium in the endometrial 2 with irregular. A hysteroscopy dilatation curettage risks including but exclusive transfusion perforation to bladder or other internal need laparotomy. She had all questions answered. She received the ACOG handouts entitled hysteroscopy and dilatation and curettage respectively. She asked to proceed PMFSH Past Medical History Medical History Abdominal pain ADHD Arizmendi esophagus Diarrhea Headache Surgical History Surgical History History of delivery Family History Family History Father Skin cancer Grandparent Skin cancer Sibling Skin cancer Grandparent Family history of malignant neoplasm Family history of malignant neoplasm of ovary Diabetes mellitus Mother Family history of malignant neoplasm of kidney Social History Social History Smoking status: Never smoker Alcohol intake: never Substance use: never Substance use type: does not use Living arrangements: with family Occupation/Education: occupation Gender identity (if verbalized by the patient): Female Spiritual care concerns: No Meds Home Medications and Allergies Home Medications Medication Instructions Recorded Confirmed Type dextroamphetamine-amphetamine 30 30 mg PO BID 03/28/23 07/20/23 History mg tablet epinephrine 0.3 mg/0.3 mL 0.3 mg (0.3 mL) IM Q5-15M PRN 03/28/23 07/20/23 Rx injection, auto-injector (EpiPen) hypersensitivity reaction #2 ea norgestrel 0.3 mg-ethinyl 1 tablet PO DAILY 04/26/23 07/20/23 History estradiol 30 mcg tablet (Jame (28)) hydrocodone 5 mg-acetaminophen 325 1 tablet PO Q4H PRN pain #20 tabs 06/25/23 Rx mg tablet cetirizine 10 mg capsule (Zyrtec) 10 mg PO DAILY 07/20/23 07/20/23 History zinc 50 mg capsule 50 mg PO DAILY 07/20/23 07/20/23 History Allergies Allergy/AdvReac Type Severity Reaction Status Date / Time tree nut Allergy Swelling Verified 06/15/23 10:43 of Lip/Tongue/Throat Exam Const: General: cooperative, comfortable and obese Orientation/consciousness: oriented to person, oriented to place and oriented to time Resp: Effort & Inspection: normal respiratory effort Cardio: Rate: regular rate Rhythm: regular rhythm Heart sounds: S1 normal heart sound present and S2 normal heart sound present GI: Inspection: normal to inspection Auscultation: normal bowel sounds : External Female Exam: normal external appearance Speculum Exam - Vagina: normal appearance of the vagina Speculum Exam - Cervix: normal appearance of the cervix Bimanual exam- vagina & uterus: enlarged Bimanual Exam- Adnexa, other: no masses Assessment and Plan Assessment and plan (1) Menorrhagia: Code(s): N92.0 - Excessive and frequent menstruation with regular cycle Status: Acute Plan Hysteroscopy/dilatation and curettage
--- NOTE | 2023-07-23 06:05 | WPDHPUPDATE1 ---
History and Physical Update Update Date/Time: 07/23/23 06:05 History and Physical has been reviewed, including an updated exam of the patient. There are NO changes in the patient's condition. Risks, benefits, and alternatives have been discussed and questions answered. Patient agrees to proceed with procedure.
[2023-07-23] MEDS: ACETAMINOPHEN 500 MG TABLET 1000 MG PO (06:07)
[2023-07-23 06:09] VITALS: BP 139/94; PULSE 91; RESP 20; TEMP 36.8; O2SAT 97
[2023-07-23] MEDS: LACTATED RINGERS 1,000 ML 30 ML IV CONT ×2 (06:25→06:28)
[2023-07-23 06:36] VITALS: BP 122/79
--- NOTE | 2023-07-23 07:49 | W.PM.PROC2 ---
Procedure Note - Detailed Date of Procedure 07/23/23 Pre-op Diagnosis heavy bleeding, dysmenorrhea Post-op Diagnosis Same (Uterine polyp) Procedure Performed hysteroscopy/ polypectomy/ dilatation curettage/paracervical block Surgeon London Barrett MD Anesthesia MAC and Local Indications 32-year-old female with thickened endometrium and heavy bleeding Findings uterus sounded to 8cm. Uterine polyp was seen. Description of Procedure The patient was prepped and draped in normal sterile fashion placed in the dorsal lithotomy position. Under excellent IV sedation weighted speculum was placed in posterior fornix vagina. Anterior lip of the cervix grasped with single-tooth tenaculum. 2.5cc 1% xylocaine anesthesia placed at 2, 4, 8, 10:00 a.m. of the cervix. Uterus sounded to 8cm. Serial dilatation with fragmented dilators performed followed by passage of the 5mm visualizing hysteroscope. Normal saline was used as visualizing medium. Moderate-sized polyp was seen the rotating resect the scope was placed and the polyp was removed piecemeal without difficulty. Before and after pictures were taken. Blood loss was estimated 5cc. The instruments withdrawn the patient went recovery in satisfactory condition. All sponge, needle, instrument countsWere correct. Estimated Blood Loss 5 Drains No Packing No Pathology Yes Complications No immediate complications Condition Stable Disposition PACU
[2023-07-23 07:52] VITALS: BP 116/83; PULSE 76; RESP 15; O2SAT 92
[2023-07-23] MEDS: LIDOCAINE HCL 1% LOCAL INJ 20 ML VIAL 10 ML INFILTRATE (07:56)
[2023-07-23] MEDS: fentaNYL CITRATE INJ (*CRX) 100 MCG/2 ML VIAL 25 MCG IV PUSH ×4 (08:03→08:18)
[2023-07-23 08:20] VITALS: BP 121/80; PULSE 81; RESP 18
[2023-07-23] MEDS: oxyCODONE HCL (*CRX) 5 MG TAB IR PO (08:38)
[2023-07-23 08:50] VITALS: BP 125/81; PULSE 83; RESP 16
== END 2023-07-23 08:56 | disposition home or self-care (01) ==
PROVIDERS: PCP Family Medicine; Visit Provider Obstetrics & Gynecology
PROC: 0U5B8ZZ Destruction of Endometrium, Via Natural or Artificial Opening Endoscopic (ICD-10-PCS; CPT 58563; principal; 2023-07-23 07:30)
DX: N92.1 Excessive and frequent menstruation with irregular cycle (principal); N84.0 Polyp of corpus uteri; F90.9 Attention-deficit hyperactivity disorder, unspecified type; K22.70 Barrett's esophagus without dysplasia; E66.9 Obesity, unspecified; Z68.41 Body mass index [BMI] 40.0-44.9, adult; Z79.891 Long term (current) use of opiate analgesic; Z84.0 Family history of diseases of the skin and subcutaneous tissue; Z80.41 Family history of malignant neoplasm of ovary; Z80.51 Family history of malignant neoplasm of kidney
CPT/HCPCS: 58558; 64435; 88305; A9270; J2250; J2405; J2704; J3010; J7120

== ENCOUNTER 2024-09-03 09:54 | Emergency (ER) | payer OTHER, SELFPAY ==
--- OUTSIDE RECORDS SUMMARY | 2024-09-03 09:57 | XMS_ITS | Clinical Summary ---
Author Organization [facility] Address [address] [place] [address] Phone Care Team Providers Care Manager Requirements Name Role Phone CHASE ZIEGLER MD Primary Care Provider [phone] WILLIAM HUDSON Unavailable [phone] Reason for Visit and Chief Complaint The Chief Complaint is: PT C/O HAVING PINK EYE IN BOTH EYE Problems Includes: Problems addressed during this encounter and other active Problems All Visits Onset Date Resolved Date Provider Condition S tatus Adhd, Predominantly Inattentive Type 04/01/2023 CHASE ZIEGLER MD Active Last Documented On 04/01/2023 4:23AM ; [facility] Note: Unchanged 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 04/01/2023 CHASE ZIEGLER MD Active Last Documented On 04/01/2023 4:23AM ; [facility] Note: Unchanged 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 04/17/2018 CHASE ZIEGLER MD Active Last Documented On 04/17/2018 10:19PM ; [facility] Note: Unchanged Opioid Dependence in Remission 04/17/2018 CHASE ZIEGLER MD Active Last Documented On 04/17/2018 10:25PM ; [facility] Note: Unchanged - Clean since 08-06-13 rodriguez boxone therapy Opioid Dependence 09/18/2013 CHASE ZIEGLER MD Active Last Documented On 04/17/2018 10:16PM ; [facility] Note: Clean since 08-06-13 and on suboxon e therapy Reported Family History of Cancer 12/04/2011 WEN RODRIGUEZ-BC Active Last Documented On 12/04/2011 10:13AM ; [facility] Note: mother - kidney cancer Plan of Treatment If symptoms worsen or do not improve call/return to office. - Last Documented On 04/01/2022 10:26AM ; [facility] Assessments Includes: Assessments from this encounter Findings - Acute conjunctivitis [H10.023 - Other mucopurulent conjunctivitis, bilateral] - Last Documented On 04/01/2022 10:26AM ; [facility] Medical Equipment - Implanted Devices Includes: Current Devices No Medical Equipment Recorded Medications Includes: Medications discussed during this encounter and other current Medications New / Renewed during this visit ELIZABETH QUISPE-Hussein on 04/01/2022 Polytrim 77597-9.1 UNIT/ML-% Ophthalmic Solution Provider: ELIZABETH QUISPE-Hussein 10 day supply: 10 mL, 0 refills Diagnosis: Other mucopurulent conjunctivitis, bilateral as directed 1 drop in affect ed eye q4 hours Pharmacy: [facility]) - [address] [place], [id number] - Last Documented On 3:23PM By FAMILIA PARHAM ; [facility] Current Medications (continue as prescribed) Adderall 30 MG Oral Tablet 12/18/2023 Provider: CHASE ZIEGLER MD Diagnosis: Attention-defici t hyperactivity disorder, unspecified type One tablet twice a day Last Documented On 12/18/2023 12:55PM By CHRIS ZIEGLER MD ; [facility] Kyleena 19.5 MG Intrauterine Intrauterine device 11/28 Provider: Diagnosis: Last Documented On 11/29/2023 9:47AM By Ángela Zheng ; [facility] Famotidine 20 MG Oral Tablet 11/10/2023 Provider: Diagnosis: Last Documented On 11/29/2023 9:50AM By Ángela Zheng ; [facility] Montelukast Sodium 10 MG Oral Tablet 09/08/2023 Prov ider: Diagnosis: Last Documented On 11/29/2023 9:51AM By Ángela Zheng ; [facility] ZyrTEC Allergy 10 MG Oral Tablet 03/10/2023 Provider : Diagnosis: Last Documented On 03/10/2023 2:42PM By Marylou PARHAM ; [facility] EpiPen 2-Basil 0.3 MG/0.3ML Injection Solution Auto-inje ctor 03/10/2023 Provider: Diagnosis: Last Documented On 03/10/2023 2:44PM By Marylou PARHAM ; [facility] Medications Administered Includes: Administered Medications from this encounter No Administered Medications Recorded Vital Signs Includes: Vital Signs from this encounter Vital Name 04/01/2022 10:24A Blood Pressure Sitting L 120/78 BP Cuff Size Large Pulse Rate-Sitting (bpm) 85 Respiration Rate (breaths/min) 11 Temp-Oral (F) 97.6 Height (in) 67 Weight (lb) 257.4 Body Mass Index (kg/m2) 40.3 Body Surface Area (m2) 2.3 Oxygen Saturation (%) 99 Last Documented: On 04/01/2022 10:25A M ; [facility] Results Includes: Results discussed during this encounter No Results Recorded For Specified Dates History of Present Illness Includes: History of Present Illness from this encounter JANEE CHEN is a 31 year old female. - Allergy list reviewed - Medication list reviewed - Feeling fine - No fever - No chills - No headache - Itching of the right eye - The left eye - Watery discharge from the right eye - From the left eye - Mucous discharge from the right eye - From the left eye - Bloodshot right eye - Left eye - No ear symptoms - No nasal discharge - No postnasal drip - No nasal passage blockage (stuffiness) - No sore throat - No dyspnea - No cough - No vomiting - No abdominal pain - No diarrhea Ester is here today with pink, itchy, matted eyes for the last couple days. Social History Description Last Updated Tobacco non-user 04/01/2022 Last Documented On 2 10:26AM ; [facility] Smoking Status Unknown Procedures and Surgical History Includes: Procedures from this encounter Procedures Code Diagnosis Performing Provider Service L ocation Service Date use of tobacco assessment performed 1000F Last Documented On 2 10:24AM ; [facility] Medical History Includes: Medical History addressed during this encounter No Medical History Recorded Family History Includes: Family History addressed during this encounter No Family History Recorded Review of Systems Includes: Review of Systems from this encounter Systemic: No fever. Head: No headache. Eyes: Eye symptoms. Otolaryngeal: No earache, no nasal discharge, and no sore throat. Pulmonary: No pulmonary symptoms. Gastrointestinal: No gastrointestinal symptoms. Skin: No skin symptoms. Mental Status Includes: Mental Status from this encounter Description Oriented to time, place, and person Functional Status Includes: Functional Status from this encounter No Functional Status Recorded Physical Exam Includes: Physical Exam from this encounter Allergies Includes: Active Allergies No Known Allergies Encounters Encounter Provider Location Date Check-In Time Check-Out Time Diagnosis WALK IN PATIENT - ESTABLISHED PT ELIZABETH GARCIAP-C [facility] 022 10:22AM 10:29AM Conjunctivitis Acute Insurance Includes: Active Insurance Policies Plan Name Member ID Group # Subscriber Relationship Effect kayleigh Dates 1 - AETNA [id number] ESTER CHEN Self Clinical Notes Includes: Clinical Notes from this encounter No Clinical Notes Recorded
--- OUTSIDE RECORDS SUMMARY | 2024-09-03 09:57 | XMS_ITS ---
Author Organization [facility] Address [address] [place] [address] Care Team Providers Care Senior Government Program Analyst Name Role Phone Unavailable Primary Care Physician Unavailab le Medications Name Start Date Expiration Date SIG Comments Kyleena 17.5 mcg/24 hrs (5yrs) 19.5mg intrauterine device 08/13/2023 08/14/2023 place 1 device by intrauterine route once Payers Insurance Name Company Name Plan Name Plan Number Policy Number Policy Group Number Start Date Aetna Aetna [id number] N/A History of Encounters Visit Date Visit Type Provider 08/13/2023 My-IUD Tele-Med Consult Dr. Sharad Valdez MD
--- OUTSIDE RECORDS SUMMARY | 2024-09-03 09:57 | XMS_ITS | Clinical Summary ---
Author Organization [facility] Address [address] [facility] [place] [address] Phone Care Team Providers Care Construction Engineering Manager Name Role Phone Issa Osullivan MD Primary Care Provider [phone] Allergies No known active allergies Medications amphetamine-dex troamphetamine (ADDERALL, 30MG,) 30 MG Tablet 2 times daily. Activ e cephALEXin (KEFLEX) 500 MG Capsule daily. Active pregabalin (LYRICA) 75 MG Capsule Take 75 mg by mouth 2 times daily. Active esomeprazole (NEXIUM) 40 MG CAPSULE DELAYED RELEASE daily. Active Etonogestrel-Et hinyl Estradiol (NUVARING) 0.12-0.015 MG/24HR RING Active ondansetron (ZOFRAN-ODT) 4 MG TABLET DISPERSIBLE daily. Active ergocalciferol (VITAMIN D) 54716 UNIT Capsule Active calcium-vitamin D (OSCAL 500/200 D-3) 500-200 MG-UNIT Tablet Active Etonogestrel (NEXPLANON) 68 MG Implant 1 Each by Subcutaneous route. Active raNITIdine (ZANTAC) 150 MG Tablet Take 2 Tabs by mouth nightly. 180 Tab 7 Active Active Problems Problem Noted Date Diagnosed Date Fibromyalgia Overview (06/03/2015): abs recently done so still prneding . crp significantly elevated but she had a double ear infection will repeat in 4 months otherwise great response to lyrica 75 mg po bid awaiting rest of the labs. Immunizations Immunization Administration Dates Next Due TD VACCINE 07/26/2009 Family History Medical History Relation Name Comments Cancer Maternal Grandfather esophag eal, kidney Cancer Mother kidney Relation Name Status Comments Maternal Grandfather Mother Social History Tobacco Use Types Packs/Day Years Used Date Smoking Tobacco: Never Smokeless Tobacco: Never Alcohol Use Standard Drinks/Week Comments No 0 (1 standard drink = 0.6 oz pur e alcohol) Comments Unknown Sex and Gender Information Value Date Recorded Sex Assigned at Not on file Legal Sex Female 12:14 AM CDT Gender Identity Not on file Sexual Orientation Not on file Last Filed Vital Signs Vital Sign Reading Time Taken Comments Blood Pressure 113/83 05/17/2017 12:12 PM CDT Pulse 98 05/17/2017 11:01 AM CDT Temperature 36 C (96.8 F) 05/17/2017 12:12 PM CDT Respiratory Rate 25 05/17/2017 12:12 PM CDT Oxygen Saturation 100% 05/17/2017 12:12 PM CDT Inhaled Oxygen Concentration - - Weight 117.9 kg (260 lb) 05/17/2017 11:01 AM CDT Height 170.2 cm (5' 7 ) 05/17/2017 11:01 AM CDT Body Mass Index 40.72 05/17/2017 11:01 AM CDT Plan of Treatment Health Maintenance Due Date Last Done Comments Hepatitis C Virus (HCV) Screening 1988 Pap Smear 2009 Cervical Cancer Screening (CCS) 2018 HPV/Cotest 2018 Influenza Immunization (#1) 2024 07/26/2020, 1 08/01/2017 SARS-COV-2 Immunization ( season) 2024 09/24/2020, 08/27/2020 Respiratory Syncytial Virus (RSV) Immunization (Adult) (1 - 1-dose 75+ series) 2063 Hepatitis B Immunization Completed 998, 09/18/1997, 08/21/1997 DTaP/Tdap/Td Immunization Discontinued 2017, 10/30/2009, 07/26/2009, Additional history exists TdaP Immunization Completed 06/01/2018, , 05/27/2000 Meningococcal Immunization (ACWY) Aged Out No longer eligible based on patient's age to complete this topic Pneumococcal Immunization Combined Aged Out No longer eligible based on patient's age to complete this topic Rotavirus Immunization Aged Out No lo nger eligible based on patient's age to complete this topic Care Teams Construction Engineering Manager Relationship Specialty Start Date End Date Issa Osullivan MD [address] [place] [id number] PCP - General Family Medicine 05/17/17
--- OUTSIDE RECORDS SUMMARY | 2024-09-03 09:57 | XMS_ITS ---
Author Organization [facility] Address [address] [place] [address] Care Team Providers Care Press Secretary Name Role Phone Issa Osullivan Primary Care Provider UnavailShasta Cortes Unavailable [phone] REASON FOR VISIT Billing Encounters Encounter Location Date Provider Diagnosis [facility] [address] [place] [address] 02/15/2024 Shasta Newell Plan Of Treatment No Information Progress Notes * Adelina LAMOB:1990 (33 yo F)Acc No.[id number]:02/15/2024 Patient: Madonna RIZO :1990 A ge:33 Y S ex:Female Address:[address] [place] [address], [address] * true * Date: Generated for Edmund mayer/Sharmaine/eTransmitting on: 0 09/03/2024 09:57 AM 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
--- OUTSIDE RECORDS SUMMARY | 2024-09-03 09:57 | XMS_ITS ---
Care Plan - [facility] Created on: September 03, 2024 ESTER CHEN : 1990 Sex: Female Author Organization [facility] Address [address] [place] [address] Phone Care Team Providers Care Rehabilitation Tech Name Role Phone CHASE ZIEGLER MD Primary Care Provider [phone] WILLIAM HUDSON Unavailable [phone]
--- OUTSIDE RECORDS SUMMARY | 2024-09-03 09:57 | XMS_ITS | Clinical Summary ---
Author Organization [facility] Address [address] [place] [address] Phone Care Team Providers Care Glass Checker Name Role Phone CHASE ZIEGLER MD Primary Care Provider [phone] WILLIAM HUDSON Unavailable [phone] Reason for Visit and Chief Complaint RX ISSUE/REFILL Problems Includes: Problems addressed during this encounter and other active Problems All Visits Onset Date Resolved Date Provider Condition S tatus Adhd, Predominantly Inattentive Type 04/01/2023 CHASE ZIEGLER MD Active Last Documented On 04/01/2023 4:23AM ; [facility] Note: Unchanged 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 04/01/2023 CHASE ZIEGLER MD Active Last Documented On 04/01/2023 4:23AM ; [facility] Note: Unchanged 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 04/17/2018 CHASE ZIEGLER MD Active Last Documented On 04/17/2018 10:19PM ; [facility] Note: Unchanged Opioid Dependence in Remission 04/17/2018 CHASE ZIEGLER MD Active Last Documented On 04/17/2018 10:25PM ; [facility] Note: Unchanged - Clean since 08-06-13 rodriguez boxone therapy Opioid Dependence 09/18/2013 CHASE ZIEGLER MD Active Last Documented On 04/17/2018 10:16PM ; [facility] Note: Clean since 08-06-13 and on suboxon e therapy Reported Family History of Cancer 12/04/2011 [facility]- Active Last Documented On 12/04/2011 10:13AM ; [facility] Note: mother - kidney cancer Plan of Treatment No Plan of Treatment Recorded Assessments Includes: Assessments from this encounter No Assessments Recorded Medical Equipment - Implanted Devices Includes: Current Devices No Medical Equipment Recorded Medications Includes: Medications discussed during this encounter and other current Medications New / Renewed during this visit CHASE ZIEGLER MD on 04/16/2023 Wegovy 0.25 MG/0.5ML Subcutaneous Solution Auto-injector Provider: CHASE ZIEGLER MD 28 day supply: 2 mL, 0 refills Diagnosis: Abnormal weight gain inject 0.5 ml subcutaneous o nce weekly for 4 weeks [facility]: [facility] [facility], [id number] - Last Documented On 05/04/2023 8:37AM By Marylou PARHAM ; [facility] Wegovy 0.5 MG/0.5ML Subcutaneous Solution Auto-injector Provider: CHASE ZIEGLER MD 28 day supply: 2 mL, 0 refills Diagnosis: Abnormal weight gain second month dosing, inject 0.5 mg subcutaneous once weekly for 4 weeks Pharmacy: [facility] - [address] , [facility], [id number] - Last Documented On 05/04/2023 8:37AM By Marylou PARHAM ; [facility] Wegovy 1 MG/0.5ML Subcutaneo us Solution Auto-injector Provider: CHASE Landaverde day supply: 2 mL, 0 refills Diagnosis: Abnormal weight gain after titrating up with the other two doses- inject 1mg once weekly for 4 weeks Pharmacy: [facility] [address] , [facility], [id number] - Last Documented On 05/04/2023 8:37AM By Marylou PARHAM ; [facility] Current Medications (continue as prescribed) Adderall 30 MG Oral Tablet 12/18/2023 Provider: CHASE ZIEGLER MD Diagnosis: Attention-defici t hyperactivity disorder, unspecified type One tablet twice a day Last Documented On 12/18/2023 12:55PM By CHRIS ZIEGLER MD ; [facility] Kyleena 19.5 MG Intrauterine Intrauterine device 11/28 Provider: Diagnosis: Last Documented On 11/29/2023 9:47AM By Ángela Zheng ; [facility] Famotidine 20 MG Oral Tablet 11/10/2023 Provider: Diagnosis: Last Documented On 11/29/2023 9:50AM By Ángela Zheng ; [facility] Montelukast Sodium 10 MG Oral Tablet 09/08/2023 Prov ider: Diagnosis: Last Documented On 11/29/2023 9:51AM By Ángela Zheng ; [facility] ZyrTEC Allergy 10 MG Oral Tablet 03/10/2023 Provider : Diagnosis: Last Documented On 03/10/2023 2:42PM By Marylou PARHAM ; [facility] EpiPen 2-Basil 0.3 MG/0.3ML Injection Solution Auto-inje ctor 03/10/2023 Provider: Diagnosis: Last Documented On 03/10/2023 2:44PM By Marylou PARHAM ; [facility] Medications Administered Includes: Administered Medications from this encounter No Administered Medications Recorded Results Includes: Results discussed during this encounter No Results Recorded For Specified Dates History of Present Illness Includes: History of Present Illness from this encounter No History of Present Illness Recorded Social History No Social History Recorded - Smoking Status Unknown Medical History Includes: Medical History addressed during this encounter No Medical History Recorded Family History Includes: Family History addressed during this encounter No Family History Recorded Review of Systems Includes: Review of Systems from this encounter No Review of Systems Recorded Mental Status Includes: Mental Status from this encounter No Mental Status Recorded Functional Status Includes: Functional Status from this encounter No Functional Status Recorded Physical Exam Includes: Physical Exam from this encounter No Physical Exam Recorded Allergies Includes: Active Allergies No Known Allergies Encounters Encounter Provider Location Date Check-In Time Check-Out Time Diagnosis RX ISSUE/REFILL CHASE ZIEGLER MD 04/16/2023 8:52AM 11:59PM Insurance Includes: Active Insurance Policies Plan Name Member ID Group # Subscriber Relationship Effect kayleigh Dates 1 - [employer]ET[employer] [id number] ESTER CHEN Self Clinical Notes Includes: Clinical Notes from this encounter * Progress note Date Encounter Last Documented by 04/16/2023 RX ISSUE/REFILL Last documented on 04/16/2023; 8:55 AM, Marylou PARHAM; [facility] Active Problems & Conditions - Adhd, Predominantly Inattentive Type - Allergic Rhinitis - Pollen - 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 - Opioid Dependence - Clean since 08-06-13 and on suboxone therapy - Opioid Dependence in Remission - Clean since 08-06-13 suboxone therapy - Reported Family History of Cancer - mother - kidney cancer Current Medication - Adderall 30 MG Oral Tablet One tablet twice a day, 30 days, 0 refills - EpiPen 2-Basil 0.3 MG/0.3ML Injection Solution Auto-injector 0 days, 0 refills - ZyrTEC Allergy 10 MG Oral Tablet One tablet daily 0 days, 0 refills Allergies - No Known Allergies Plan StartCited - Abnormal weight gain Wegovy 0.25 MG/0.5ML mL inject 0.5 ml subcutaneous once weekly for 4 weeks, 28 days, 0 refills Wegovy 0.5 MG/0.5ML mL second month dosing, inject 0.5 mg subcutaneous once weekly for 4 weeks, 28 days, 0 refills Wegovy 1 MG/0.5ML mL after titrating up with the other two doses- inject 1mg once weekly for 4 weeks, 28 days, 0 refills EndCited
--- NOTE | 2024-09-03 09:58 | ED.URI ---
HPI - URI/Sore Throat General Chief Complaint: Upper Respiratory Infection Stated Complaint: throat/aches Time Seen by Provider: 09/03/24 09:58 Source: patient, RN notes reviewed and old records reviewed Mode of arrival: ambulatory Limitations: no limitations History of Present Illness HPI Narrative: patient presents accompanied by her daughter who was recently diagnosed with the flu. Patient is concerned because she now has a headache, body aches, sore throat. She reports that she was taking Tylenol and ibuprofen yesterday at the onset of her symptoms, has not had any medication for her symptoms today. She states that she does not believe that she has a fever, but says that she typically gets a headache when she has strep throat. She is able to manage own secretions, no drooling or stridor noted. She denies any injury or trauma. She voices no other concerns or complaints at this time Related Data Home Medications ?Medication ?Instructions ?Recorded ?Confirmed ?Last Taken ?Type dextroamphetamine-amphetamine 30 30 mg PO BID 03/28/23 07/23/23 07/22/23 History mg tablet cetirizine 10 mg capsule (Zyrtec) 10 mg PO DAILY 07/20/23 07/23/23 07/22/23 History Allergies Allergy/AdvReac Type Severity Reaction Status Date / Time tree nut Allergy Swelling Verified 09/03/24 10:10 of Lip/Tongue/Throat Review of Systems Review of Systems: All systems reviewed & are unremarkable except as noted in HPI and below Constitutional: Constitutional: Reports no additional constitutional complaints, Reports body ache(s), Reports chills and Reports headache(s) ENT: Reports system reviewed and no additional complaints, except as documented and Reports sore throat Cardiovascular: Cardiovascular: Reports no additional cardiovascular complaints Respiratory: Respiratory: Reports no additional respiratory complaints Gastrointestinal: Gastrointestinal: Reports no additional gastrointestinal complaints PMFSH Past Medical History Medical History Headache Arizmendi esophagus Abdominal pain Diarrhea ADHD Surgical History Surgical History History of delivery Family History Family History Father Skin cancer Grandparent Skin cancer Sibling Skin cancer Grandparent Family history of malignant neoplasm Family history of malignant neoplasm of ovary Diabetes mellitus Mother Family history of malignant neoplasm of kidney Social History Social History Smoking status: Never smoker Alcohol intake: never Substance use: never Substance use type: does not use Living arrangements: with family Occupation/Education: occupation Gender identity (if verbalized by the patient): Female Spiritual care concerns: No Comments At the time of my signature, I reviewed and agree with the nursing past medical, surgical, social, and family history. There is no relevant family history pertinent to the patient complaint. Exam Const: General: cooperative, no acute distress, alert and awake Orientation/consciousness: oriented to person, oriented to place and oriented to time HENMT: Head: normal to inspection Ears: TM's normal bilaterally Mouth: Yes moist mucous membranes Throat: posterior oropharynx abnormal erythema and tonsils absent Resp: Effort & Inspection: normal respiratory effort and able to speak in complete sentences Auscultation: clear to auscultation bilaterally, no crackles, no rales, no rhonchi and no wheezes Cardio: Palpation: normal PMI Rate: regular rate Rhythm: regular rhythm Heart sounds: S1 normal heart sound present and S2 normal heart sound present Neuro: General: oriented to person, oriented to place and oriented to time Cranial nerves: Yes CN's II-XII intact bilaterally Psych: Appearance: grossly normal Thought process: Normal thought process present Insight: Good insight present (Psych) Judgement: Good judgement present (Psych) Course Course Level of Care: Express Care Visit Vital Signs Vital signs: Vital Signs Temperature 98.2 F 09/03/24 10:02 Pulse Rate 87 09/03/24 10:02 Respiratory Rate 20 09/03/24 10:02 Blood Pressure 126/90 09/03/24 10:02 Pulse Oximetry 94 09/03/24 10:02 Oxygen Delivery Room Air 09/03/24 10:02 Temperature 98.2 F 09/03/24 10:02 Pulse Rate 87 09/03/24 10:02 Respiratory Rate 20 09/03/24 10:02 Blood Pressure 126/90 09/03/24 10:02 Pulse Oximetry 94 09/03/24 10:02 Oxygen Delivery Room Air 09/03/24 10:02 Reviewed MDM - URI/Sore Throat MDM Narrative Medical decision making narrative: negative COVID, negative flu. Positive strep. Patient nontoxic appearing, stable for discharge home on p.o. antibiotic therapy. Discharge instructions reviewed with patient, as well as provided in writing per nursing staff. The instructions also include specific and strict return/GO TO THE ER as well as f/u information. All questions have been answered, and the patient deny any further questions with discharge and discharge plan. Some parts of this dictation were generated by voice recognition software and may contain typographical and/or grammatical inaccuracies. Differential Diagnosis Differential diagnosis: Likely upper respiratory infection, otitis media, viral infection and pharyngitis Medical Records Attestation: I reviewed the patient's medical records. Lab Data Attestation: I reviewed the patient's lab results. Labs: Lab Results 09/03/24 Range/Units 10:10 POC Influenza A Ag Negative (Negative) POC Influenza B Ag Negative (Negative) POC SARS CoV-2 Ag Negative (Negative) POC Grp A Strep Screen Positive (Negative) Discharge Plan Discharge Clinical Impression: Pharyngitis Qualifiers: Pharyngitis/tonsillitis etiology: streptococcus Qualified Code(s): J02.0 - Streptococcal pharyngitis Patient Disposition: Home, Self-Care Condition: Stable Instructions: Antibiotic Form, Pharyngitis (ED) Additional Instructions: Take medications as prescribed. Follow-up with primary care provider. Emergency department for new or worse symptoms Patient Language: Latvian Prescriptions: New amoxicillin 500 mg capsule 500 mg PO Q12H Qty: 20 0RF No Action dextroamphetamine-amphetamine 30 mg tablet 30 mg PO BID epinephrine [EpiPen] 0.3 mg/0.3 mL auto-injector 0.3 mg IM Q5-15M PRN (Reason: hypersensitivity reaction) Qty: 2 0RF Rx Instructions: do not exceed 3 doses per episode Zyrtec 10 mg Capsule 10 mg PO DAILY Follow-up/Referrals: Shi,MD Issa [Primary Care Provider] - 2 Weeks Stand Alone Forms: Work/School Release IP Time of Disposition: 10:28
--- OUTSIDE RECORDS SUMMARY | 2024-09-03 09:58 | XMS_ITS ---
Author Organization Health system Address [address] [place] [address] Care Team Providers Care [employer] Retailer Sales Consultant Name Role Phone Issa Osullivan Primary Care Provider UnavailShasta Cortes Unavailable [phone] REASON FOR VISIT RE:Billing Encounters Encounter Location Date Provider Diagnosis Health system [address] [place] [address] 02/17/2024 Shasta Newell Plan Of Treatment No Information Progress Notes * Adelina CHENOB:1990 (33 yo F)Acc No.[id number]:02/17/2024 Patient: Madonna RIZO :1990 A ge:33 Y S ex:Female Address:[address] [place] [address], [phone] * true * Date: Generated for Edmund mayer/Sharmaine/eTransmitting on: 0 09/03/2024 09:58 AM FINANCIAL SERVICES SALES REPRESENTATIVE
--- OUTSIDE RECORDS SUMMARY | 2024-09-03 09:58 | XMS_ITS | Clinical Summary ---
Author Organization [facility] Address [address] [place] [address] Phone Care Team Providers Care Tram Operator Name Role Phone CHASE ZIEGLER MD Primary Care Provider [phone] WILLIAM HUDSON Unavailable [phone] Reason for Visit and Chief Complaint The Chief Complaint is: Check up, started allergy shots at beginning of year. Has been seeing a nutrionist and net trainer since October an dhas lost 15 lbs per patient Problems Includes: Problems addressed during this encounter and other active Problems Current Visit Onset Date Resolved Date Provider Conditio n Status Adhd, Predominantly Inattentive Type 04/01/2023 CHASE ZIEGLER MD Active Last Documented On 04/01/2023 4:23AM ; [facility] Note: Unchanged 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 04/01/2023 CHASE ZIEGLER MD Active Last Documented On 04/01/2023 4:23AM ; [facility] Note: Unchanged Opioid Dependence in Remission 04/17/2018 CHASE ZIEGLER MD Active Last Documented On 04/17/2018 10:25PM ; [facility] Note: Unchanged - Clean since 08-06-13 rodriguez boxone therapy Past Visits Onset Date Resolved Date Provider Condition Status 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 04/17/2018 CHASE ZIEGLER MD Active Last Documented On 04/17/2018 10:19PM ; [facility] Note: Unchanged Opioid Dependence 09/18/2013 CHASE ZIEGLER MD Active Last Documented On 04/17/2018 10:16PM ; [facility] Note: Clean since 08-06-13 and on suboxon e therapy Reported Family History of Cancer 12/04/2011 [facility]- Active Last Documented On 12/04/2011 10:13AM ; [facility] Note: mother - kidney cancer Plan of Treatment No Plan of Treatment Recorded Assessments Includes: Assessments from this encounter Findings - Routine adult history and physical (18-64 yrs) without abnormal findings [Z00.00 - Encounter for general adult medical examination without abnormal findings] - Last Documented On 12/15/2023 4:38AM ; [facility] - Allergic rhinitis due to pollen [J30.1 - Allergic rhinitis due to pollen] - Last Documented On 12/15/2023 4:38AM ; [facility] - ADHD, 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 - Attention-deficit hyperactivity disorder, predominantly inattentive type] - Last Documented On 12/15/2023 4:38AM ; [facility] - Opioid dependence in remission [F11.21 - Opioid dependence, in remission] - Last Documented On 12/15/2023 4:38AM ; [facility] Medical Equipment - Implanted Devices Includes: Current Devices No Medical Equipment Recorded Medications Includes: Medications discussed during this encounter and other current Medications Discontinued / Stopped on this date CHASE IZEGLER MD on 11/08/2023 Wegovy 1 MG/0.5ML Subcutaneo us Solution Auto-injector Provider: CHASE Landaverde Diagnosis: Abnormal weight gain Last Documented On 11/29/2023 9:49AM By Ángela Zheng ; [facility] Current Medications (continue as prescribed) Adderall 30 MG Oral Tablet 12/18/2023 Provider: CHASE ZIEGLER MD Diagnosis: Attention-defici t hyperactivity disorder, unspecified type One tablet twice a day Last Documented On 12/18/2023 12:55PM By CHRIS ZIEGLER MD ; [facility] Kyleena 19.5 MG Intrauterine Intrauterine device 11/28 Provider: Diagnosis: Last Documented On 11/29/2023 9:47AM By Ángela Zheng ; [facility] Famotidine 20 MG Oral Tablet 11/10/2023 Provider: Diagnosis: Last Documented On 11/29/2023 9:50AM By Ángela Zheng ; [facility] Montelukast Sodium 10 MG Oral Tablet 09/08/2023 Prov ider: Diagnosis: Last Documented On 11/29/2023 9:51AM By Ángela Zheng ; [facility] ZyrTEC Allergy 10 MG Oral Tablet 03/10/2023 Provider : Diagnosis: Last Documented On 03/10/2023 2:42PM By Marylou PARHAM ; [facility] EpiPen 2-Basil 0.3 MG/0.3ML Injection Solution Auto-inje ctor 03/10/2023 Provider: Diagnosis: Last Documented On 03/10/2023 2:44PM By Mayrlou PARHAM ; [facility] Medications Administered Includes: Administered Medications from this encounter No Administered Medications Recorded Vital Signs Includes: Vital Signs from this encounter Vital Name 11/29/2023 09:46A Blood Pressure Sitting L 102/74 BP Cuff Size Large Pulse Rate-Sitting (bpm) 95 Pulse Rhythm Regular Respiration Rate (breaths/min) 21 Temp-Oral (F) 98.7 Height (in) 67 Weight (lb) 264 Body Mass Index 41.3 Body Surface Area 2.3 Oxygen Saturation (%) 96 Last Documented: On 11/29/2023 9:54AM ; [facility] Results Includes: Results discussed during this encounter No Results Recorded For Specified Dates History of Present Illness Includes: History of Present Illness from this encounter JANEE CHEN is a 33 year old female. - Medication list reviewed. - Feeling fine. - No fever - No headache - No ear symptoms - No nasal symptoms - , and No throat symptoms - No chest pain or discomfort - and No palpitations - No dyspnea - and No cough - No heartburn - No nausea - No vomiting - No abdominal pain - No diarrhea - , and No constipation - No urinary symptoms - No musculoskeletal symptoms - No skin symptoms The patient is a 33 years old female, who presents today for a checkup. She denies any acute concern today. She denies any chest pain, cough, or shortness of breath. She denies any bowel and bladder incontinence. She takes sound sleep at night. She is allergic to cats, dogs, molds, and nut trees. She has been receiving allergy injections, started in July 2023. She routinely follows up with an speech therapy assistant. She has a history of obesity. She routinely follows up with a machinist apprentice and net trainer. She lost 15 pounds in the past 6 months and weighed 264 pounds in the clinic today. Social History Description Last Updated Consuming 5 or more drinks per day None 11/29/2023 Last Documented On 4 4:38AM ; [facility] Not recovering alcoholic 11/29/2023 Last Documented On 4 4:38AM ; [facility] Not recovering from substance abuse 12/2023 Last Documented On 4 4:38AM ; [facility] Number of times used recreat ional drug/ prescription drug for nonmedical reason. None 11/29/2023 Last Documented On 4 4:38AM ; [facility] No consumption of alcohol 03/10/2023 Last Documented On 4 4:31PM ; [facility] Not a current smoker 03/10/2023 Last Documented On 4 4:31PM ; [facility] Not using drugs 03/10/2023 Last Documented On 4 4:31PM ; [facility] Tobacco non-user 04/01/2022 Last Documented On 4 4:31PM ; [facility] Current nonsmoker 01/21/2021 Last Documented On 4 4:31PM ; [facility] Not using alcohol 04/05/2017 Last Documented On 4 4:31PM ; [facility] Exercising regularly 3 TIMES PER WEEK WA LKING AND YOGA AND MEDITATION 10/02/2016 Last Documented On 4 4:31PM ; [facility] No caffeine use 10/02/2016 Last Documented On 4 4:31PM ; [facility] Smoking Status Unknown Procedures and Surgical History Includes: Procedures from this encounter Procedures Code Diagnosis Performing Provider Service L ocation Service Date plan of care reviewed and agreed to Last Documented On 4 9:59AM ; [facility] use of tobacco assessment performed 1000F Last Documented On 4 9:45AM ; [facility] standardized depression screening: negative for symptoms 3351F Last Documented On 4 9:45AM ; [facility] review of medications documented 1160F Last Documented On 4 9:45AM ; [facility] screening for adult depression: impressi on and score 0 Last Documented On 4 9:45AM ; [facility] Reviewed & agreed to staff entries. Last Documented On 4 9:59AM ; [facility] Clinical summary provided to patient Last Documented On 4 9:59AM ; [facility] Surgical History Last Updated Tonsillectomy 12/07/2011 Last Documented On 4 4:31PM ; [facility] Medical History Includes: Medical History addressed during this encounter Description Last Updated Pt does not get blood pressure checked a t other facility 11/29/2023 Last Documented On 4 4:38AM ; [facility] Vaccine history 11/29/2023 Last Documented On 4 4:38AM ; [facility] Date COVID symptoms started: January 10 0 01/21/2021 Last Documented On 4 4:31PM ; [facility] LMP: on Nexplanon 04/17/2018 Last Documented On 4 4:31PM ; [facility] TONSILS 5TH GRADE ~ 10/02/2016 Last Documented On 4 4:31PM ; [facility] 0 11/22/2009 Last Documented On 4 4:31PM ; [facility] Family History Includes: Family History addressed during this encounter Description Last Updated Maternal history of family history of ca ncer KIDNEY 10/02/2016 Last Documented On 4 4:31PM ; [facility] Maternal history of family history of ki dney disease 10/02/2016 Last Documented On 4 4:31PM ; [facility] Family history of diabetes mellitus mate rnal grandparents ~mother 12/07/2011 Last Documented On 4 4:31PM ; [facility] Family history of uterine cancer MGM Last Documented On 4 4:31PM ; [facility] Family medical history of high blood pre ssure 11/22/2009 Last Documented On 4 4:31PM ; [facility] Family medical history of High Cholester ol 11/22/2009 Last Documented On 4 4:31PM ; [facility] Family history of malignant female breas t neoplasm maternal grandma 11/22/2009 Last Documented On 4 4:31PM ; [facility] Family history of malignant neoplasm of the ovary mother et Aunt 11/22/2009 Last Documented On 4 4:31PM ; [facility] Review of Systems Includes: Review of Systems from this encounter Systemic: No fever, no chills, no night sweats, and no edema. Head: No headache. Eyes: No vision problems. Otolaryngeal: No earache, no nasal discharge, and no sore throat. Cardiovascular: No chest pain or discomfort and no palpitations. Pulmonary: No shortness of breath. No cough and no wheezing. Gastrointestinal: Normal appetite and no heartburn. No nausea, no vomiting, no abdominal pain, and no diarrhea. Genitourinary: No dysuria. Musculoskeletal: No muscle aches and no localized joint pain. Neurological: No dizziness. Psychological: No sleep disturbances. Mental Status Includes: Mental Status from this encounter Description Oriented to time, place, and person Functional Status Includes: Functional Status from this encounter No Functional Status Recorded Physical Exam Includes: Physical Exam from this encounter Allergies Includes: Active Allergies No Known Allergies Encounters Encounter Provider Location Date Check-In Time Check-Out Time Diagnosis CHECK UP CHASE ZIEGLER MD [facility] 11/29/19 24 9:39AM 10:12AM Adhd, Predominantly Inattentive Type,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,Opioid Dependence in Remission,Routin e History & Physical Adult Without Abnormal Findings Insurance Includes: Active Insurance Policies Plan Name Member ID Group # Subscriber Relationship Effect kayleigh Dates - AENA [id number] ESTER CHEN Self Clinical Notes Includes: Clinical Notes from this encounter * Progress note Date Encounter Last Documented by 11/29/2023 CHECK UP Last documented on 12/15/2023; 4:38 AM, CHASE ZIEGLER MD; [facility] Active Problems & Conditions - Adhd, Predominantly Inattentive Type - 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 - 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 - Opioid Dependence - Clean since 08-06-13 and on suboxone therapy - Opioid Dependence in Remission - Clean since 08-06-13 suboxone therapy - Reported Family History of Cancer - mother - kidney cancer Chief Complaint The Chief Complaint is: Check up, started allergy shots at beginning of year. Has been seeing a nutrionist and net trainer since October an dhas lost 15 lbs per patient. History of Present Illness ESTER CHEN is a 33 year old female. - Medication list reviewed. - Feeling fine. - No fever - No headache - No ear symptoms - No nasal symptoms - , and No throat symptoms - No chest pain or discomfort - and No palpitations - No dyspnea - and No cough - No heartburn - No nausea - No vomiting - No abdominal pain - No diarrhea - , and No constipation - No urinary symptoms - No musculoskeletal symptoms - No skin symptoms The patient is a 33 years old female, who presents today for a checkup. She denies any acute concern today. She denies any chest pain, cough, or shortness of breath. She denies any bowel and bladder incontinence. She takes sound sleep at night. She is allergic to cats, dogs, molds, and nut trees. She has been receiving allergy injections, started in July 2023. She routinely follows up with an speech therapy assistant. She has a history of obesity. She routinely follows up with a machinist apprentice and net trainer. She lost 15 pounds in the past 6 months and weighed 264 pounds in the clinic today. Current Medication - Adderall 30 MG Oral Tablet One tablet twice a day, 30 days, 0 refills - EpiPen 2-Basil 0.3 MG/0.3ML Injection Solution Auto-injector 0 days, 0 refills - Famotidine 20 MG Oral Tablet 30 days, 0 refills - Kyleena 19.5 MG Intrauterine Intrauterine device 0 days, 0 refills - Montelukast Sodium 10 MG Oral Tablet 30 days, 0 refills - ZyrTEC Allergy 10 MG Oral Tablet One tablet daily 0 days, 0 refills Past Medical/Surgical History Reported: LMP: on Nexplanon. Recent Events: Pt does not get blood pressure checked at other facility. Medical: Vaccine history. Surgical / Procedural: Tonsillectomy. Exposure: Date COVID symptoms started: January 10. : 0. TONSILS 5TH GRADE . Social History Caffeine use: No caffeine use. Tobacco use: Not a current smoker. Current nonsmoker. Alcohol: No consumption of alcohol and not using alcohol. Consuming 5 or more drinks per day None. Not recovering alcoholic. Drug Use: Not using drugs and not recovering from substance abuse. Number of times used recreational drug/ prescription drug for nonmedical reason. None. Habits: Exercising regularly 3 TIMES PER WEEK WALKING AND YOGA AND MEDITATION. Allergies - No Known Allergies Family History Family medical history of high blood pressure Family medical history of High Cholesterol Diabetes mellitus maternal grandparents mother Malignant female breast neoplasm maternal grandma Malignant neoplasm of ovary mother et Aunt Uterine cancer MGM Maternal: Cancer KIDNEY Kidney disease Review Of Systems Systemic: No fever, no chills, no night sweats, and no edema. Head: No headache. Eyes: No vision problems. Otolaryngeal: No earache, no nasal discharge, and no sore throat. Cardiovascular: No chest pain or discomfort and no palpitations. Pulmonary: No shortness of breath. No cough and no wheezing. Gastrointestinal: Normal appetite and no heartburn. No nausea, no vomiting, no abdominal pain, and no diarrhea. Genitourinary: No dysuria. Musculoskeletal: No muscle aches and no localized joint pain. Neurological: No dizziness. Psychological: No sleep disturbances. Physical Findings - Vitals taken 11/29/2023 09:46 am BP-Sitting L 102/74 mmHg 100 - 120/56 - 80 BP Cuff Size Large Pulse Rate-Sitting 95 bpm 50 - 100 Pulse Rhythm Regular Respiration Rate 21 per min 18 - 26 Temp-Oral 98.7 F 96 - 101 Height 67 in 60 - 69 Weight 264 lbs 98 - 183 Body Mass Index 41.3 kg/m2 Body Surface Area 2.3 m2 Oxygen Saturation 96 % 93 - 100 General Appearance: - Well developed. - Well nourished. - In no acute distress. Neck: Thyroid: - Showed no abnormalities. Eyes: General/bilateral: Extraocular Movements: - Normal. Pupils: - PERRLA. Ears: General/bilateral: Tympanic Membrane: - Normal. Nose: General/bilateral: Discharge: - No nasal discharge. Pharynx: Oropharynx: - Normal. Lungs: - Normal breath sounds/voice sounds. - No wheezing was heard. - No rhonchi were heard. - No rales/crackles were heard. Cardiovascular: Heart Rate And Rhythm: - Normal. Murmurs: - No murmurs were heard. Abdomen: Auscultation: - Bowel sounds were normal. Palpation: - Abdominal non-tender. Musculoskeletal System: General/bilateral: - Overall findings were normal. Neurological: - Oriented to time, place, and person. 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 - Clinical summary provided to patient. - Plan of care reviewed and agreed to. Vaccinations - Did not receive dose of influenza virus vaccine - Did not receive dose of pneumococcal vaccine Discussed Dr. Ziegler reviewed her lab results and updated her medication today. Advised the patient to continue with the current medication regimen. Advised the patient to eat a healthy diet including fresh fruits and vegetables. Discussed the possible side effects and benefits of Wegovy and Mounjaro the patient. The patient understands and agrees with the plan. Other Tobias Underwood scribing the following documents on behalf of Ky Baez MD. Practice Management Use of tobacco assessment performed Review of medications documented; Standardized depression screening: negative for symptoms and for adult impression and score 0. Health Reminders - Assess BMI satisfied 11/29/2023. - Assess Tobacco Use satisfied 11/29/2023. - Depression Screening satisfied 11/29/2023. - Follow up plan for Depression Screening satisfied 11/29/2023.
--- OUTSIDE RECORDS SUMMARY | 2024-09-03 09:58 | XMS_ITS | Data Portability ---
Author Organization [facility] Kelly Kaylene Address [address] [place] [address] Assessment No assessment recorded. Plan of Treatment Reminders Order Date Submit Date Provider Last Modified By Organization Details Last Modified Time Details Appointments None recorded. Lab CBC 2015 016 [facility], [address] [place] [address], [facility] [address], [place], [address], 6 14:26:00 CMP, serum or plasma 2015 016 [email or web address], [address] [place] [address], [facility] [address], [place], [address], 6 09:23:15 lipid panel, serum 2015 016 [facility], [address] [place] [address], [facility] [address], [place], [address], 6 14:25:59 TSH + free T4, serum 2015 016 [facility], [address] [place] [address], [facility] [address], [place], [address], 6 14:26:00 Referral None recorded. Procedures None recorded. Surgeries None recorded. Imaging None recorded. Medication Orders cephalexin 500 mg capsule 2015 016 [id number] [facility] #[id number], [address], [place], [id number], 6 04:32:01 Keflex 500 mg capsule 2016 017 INTERFACE [facility] #[id number], [address], [place], [id number], 7 18:03:50 Guaiatussi n AC 10 mg-100 mg/5 mL oral liquid 2016 017 [email or web address] 1 [facility] #[id number], [address], [place], [id number], 7 18:40:08 Patient TargetsNo targets recorded. Patient Instructions Encounter Date Encounter Id Patient Instructions Last Modified By Organization Details Last Modified Time 04/17/2016 [id number] attention defici t hyperactivity disorder (ADHD) in adults: care instructions Not available 04/17/2016 17:22:30 04/28/2016 [id number] attention defici t hyperactivity disorder (ADHD) in adults: care instructions Not available 04/29/2016 09:42:53 06/09/2016 [id number] Acute Sinusitis: Care Instructions Not available 06/09/2016 19:43:36 08/31/2016 [id number] upper respirator y infection (cold): care instructions Not available 08/31/2016 18:24:35 Reason for Referral None Reported. Results Created Date Observation Date Name Description Value Unit Range Abnormal Flag Note LastModifiedBy Organization Detail LastModifiedTime Result Notes None recorded. 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 Medical Equipment None Reported. Allergies No known drug allergies Medications Name Sig Start Date Stop Date Status Note LastModified by Organization Details LastModified Time ketoconazole 200 mg tablet active Not Available Not Availabl e Not Available ibuprofen 800 mg tablet active Not Available Not Available No t Available fluconazole 150 mg tablet active Not Available Not Availabl e Not Available Keflex 500 mg capsule Take 1 capsule every 8 hours by oral route as directed for 10 days. 2016 active Not Available Not Available Not Avai lable metronidazole 0.75 % (37.5 mg/5 gram) vaginal gel active Not Available Not Available Not Available dextroamphetam ine-amphetamin e 30 mg tablet Take 1 tablet twice a day by oral route for 30 days. active Not Available Not Available No t Available Guaiatussin AC 10 mg-100 mg/5 mL oral liquid Take 10 mL every 4 hours by oral route for 10 days. 2016 active Not Available Not Available Not Avai lable ibuprofen 600 mg tablet active Not Available Not Available No t Available NuvaRing 0.12 mg-0.015 mg/24 hr vaginal active Not Available Not Available N ot Available azithromycin 500 mg tablet active Not Available Not Availabl e Not Available Brianna-BE 0.35 mg tablet active Not Available Not Available No t Available buprenorphine 8 mg-naloxone 2 mg sublingual tablet active Not Available Not Available Not Available nitrofurantoin monohydrate/ma crocrystals 100 mg capsule active Not Available Not Availab le Not Available Vitals Date Recorded Heart rate Body mass index (BMI) Oxygen saturation Oxygen saturation in Arterial blood by Pulse oximetry Body weight Body height Systolic blood pressure Diastolic blood pressure Provider Name and Address Organization Details Last Updated DateTime 6 93 /min 39.6 kg/m2 97 % 97 % 914890. 89484 g 170.18 cm 126 mm[Hg] 84 mm[Hg] Klaudia Herrera [place] [facility] 6 16:21:35 Date Recorded Body weight Systolic blood pressure Diastolic blood pressure Provider Name and Address Organization Details Last Updated DateTime 04/28/2016 470870.878 266 g 124 mm[Hg] 68 mm[Hg] Ina Win [place] [facility] 04/28/2016 19:17:42 Date Recorded Body height Body weight Body mass index (BMI) Systolic blood pressure Diastolic blood pressure Provider Name and Address Organization Details Last Updated DateTime 06/09/2016 170.18 cm 70529.84 g 32 kg/m2 124 mm[Hg] 90 mm[Hg] Klaudia Herrera MA [facility] 6 19:15:05 Date Recorded Body height Body weight Body mass index (BMI) Oxygen saturation Oxygen saturation in Arterial blood by Pulse oximetry Heart rate Systolic blood pressure Diastolic blood pressure Provider Name and Address Organization Details Last Updated DateTime 6 170.18 cm 925215. 07 g 40.8 kg/m2 97 % 97 % 97 /min 122 mm[Hg] 98 mm[Hg] Klaudia Javier [facility] 6 17:22:24 Date Recorded Body height Body weight Body mass index (BMI) Oxygen saturation Oxygen saturation in Arterial blood by Pulse oximetry Heart rate Systolic blood pressure Diastolic blood pressure Provider Name and Address Organization Details Last Updated DateTime 7 170.18 cm 045964. 79 g 41.2 kg/m2 97 % 97 % 87 /min 124 mm[Hg] 82 mm[Hg] Klaudia Herrera [facility] 7 18:00:00 Social History None recorded. Functional Status None recorded. Mental Status None recorded. Family History Relationship Description Onset Age of this Age Resolved Age Notes LastModified by Organization Details LastModified Time Mother Kidney disease Not available 03/27 16:23:40 Medical History Condition Response Coronary Artery Disease N Other N Atrial Fibrillation N High Blood Pressure N Thyroid Problems N Kidney or Bladder Problems N Depression N COPD N Blood Clots N GI Problems N Skin Problems N Anemia N Heart Attack (AR) N Diabetes N Anxiety Disorder N Muscle, Joint, or Bone Problems N Seizures/Epilepsy N Acid Reflux (GERD) N Cancer N Stroke N Allergies N Asthma N High Cholesterol N Hepatitis N Liver Disease N Headaches N Osteoporosis N Heart Failure N Gynecological HistoryNo gynecological history recorded. Obstetrics History GPAL:G 0 P 0 0 0 0 Past Encounters Encounter ID Performer Location Encounter Start Date Encounter Closed Date Diagnosis/Indication Diagnosis SNOMED-CT Code Diagnosis ICD10 Code Diagnosis Note [id number] London Dixon PA-C [facility] [address] [place] [address] 04/17/2016 15:48:03 04/17/2016 17:06:01 Opioid dependence 96410228 F11.20 Attention deficit hyperactivity disorder, predominantly inattentive type 75528440 F90.0 [id number] London Dixon PA-C [facility] [address] [place] [address] 04/28/2016 18:42:34 04/30/2016 09:07:17 Attention deficit hyperactivity disorder, predominantly inattentive type 39069948 F90.0 Opioid dependence 632556 00 F11.20 [id number] London Dixon PA-C [facility] [address] [place] [address] 06/09/2016 18:35:29 06/09/2016 19:48:26 Hypertriglyceridemia 726223570 E78.1 Acute sinusitis 19229498 J01.90 [id number] London Dixon PA-C [facility] [address] [place] [address] 06/23/2016 17:15:31 06/23/2016 18:20:33 Acute laryngitis 7744377 J04.0 [id number] London Dixon PA-C [facility] [address] [place] [address] 08/31/2016 17:39:11 08/31/2016 18:20:08 Upper respiratory infection 28150210 J06.9 Health Concerns Section Related Observation LastModified by Organization Detai ls LastModified Time None Recorded Concern Status LastModified by Organization Details LastModified Time None Recorded Advance Directives Directive None Recorded Payers Encounter Date Sequence Insurance Name Policy Number Policy Neumann Covered Member ID Neumann Member ID Guarantor Name 04/17/2016 1 [facility] [id number] Madonna Lam [id number] Madonna Lam 04/28/2016 1 [facility] [id number] Madonna Lam [id number] Madonna Lam 06/09/2016 1 [facility] [id number] Madonna Lam [id number] Madonna Lam 06/23/2016 1 [facility] [id number] Madonna Lam [id number] Madonna Lam 08/31/2016 1 [facility] [id number] Madonna Lam [id number] Madonna Genaro Notes Date Note Type Note Provider Name and Address Organization Details Recorded Time 04/17/2016 text/html history of suboxone treatment vs heroin. once complete they willng longer RX Adderall. London Dixon PA-C Attn: Accounting,[address] [place], [address], [facility] 04/17/2016 16:50:17 04/28/2016 text/html opioid dependence. finished her subox withdrawl. no real withdrawl. some diarrhea and some chills. has a rheum who thought she had fibro maybe low thyroid London Dixon PA-C Attn: Accounting,[address] [facility], [place], [address], [facility] 04/28/2016 19:49:55 06/09/2016 text/html congestion sneezing London Dixon PA-C Attn: Accounting,[address] [place], [address], [facility] 06/09/2016 19:38:45 06/23/2016 text/html Pt comes in sore throat, wheezing, nasal congestion, loss of voice, ear pain, and cough that started 3 days ago. The highest fever she recorded was yesterday at 101. She had taken dayquil that helped with the fever a little bit but didn't provide a lot of relief. Lonodn Dixon PA-C Attn: Accounting,[address] [place], [address], [facility] 06/23/2016 17:51:15 08/31/2016 text/html cough some fever 100 and raspy voice,productive. London Dixon PA-C Attn: Accounting,[address] [place], [address], [facility] 08/31/2016 18:04:20 OBGyn Episode No OBEpisode recorded.
--- OUTSIDE RECORDS SUMMARY | 2024-09-03 09:58 | XMS_ITS | Clinical Summary ---
Author Organization [facility] Address [address] [place] [address] Phone Care Team Providers Care Hosiery Mender Name Role Phone CHASE ZIEGLER MD Primary Care Provider [phone] WILLIAM HUDSON Unavailable [phone] Reason for Visit and Chief Complaint The Chief Complaint is: Ckup- Med Refill Problems Includes: Problems addressed during this encounter and other active Problems Current Visit Onset Date Resolved Date Provider Conditio n Status Adhd, Predominantly Inattentive Type 04/01/2023 CHASE ZIEGLER MD Active Last Documented On 04/01/2023 4:23AM ; [facility] Note: Unchanged 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 04/01/2023 CHASE ZIEGLER MD Active Last Documented On 04/01/2023 4:23AM ; [facility] Note: Unchanged 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 04/17/2018 CHASE ZIEGLER MD Active Last Documented On 04/17/2018 10:19PM ; [facility] Note: Unchanged Past Visits Onset Date Resolved Date Provider Condition Status Opioid Dependence in Remission 04/17/2018 CHASE ZIEGLER MD Active Last Documented On 04/17/2018 10:25PM ; [facility] Note: Unchanged - Clean since 08-06-13 rodriguez boxone therapy Opioid Dependence 09/18/2013 CHASE ZIEGLER MD Active Last Documented On 04/17/2018 10:16PM ; [facility] Note: Clean since 08-06-13 and on suboxon e therapy Reported Family History of Cancer 12/04/2011 WEN BOOKER ZECHARIAH-BC Active Last Documented On 12/04/2011 10:13AM ; [facility] Note: mother - kidney cancer Plan of Treatment No Plan of Treatment Recorded Assessments Includes: Assessments from this encounter Findings - Routine adult history and physical (18-64 yrs) without abnormal findings [Z00.00 - Encounter for general adult medical examination without abnormal findings] - Last Documented On 04/01/2023 4:24AM ; [facility] - Abnormal weight gain [R63.5 - Abnormal weight gain] - Last Documented On 04/01/2023 4:24AM ; [facility] - Malaise and fatigue [R53.83 - Other fatigue] - Last Documented On 04/01/2023 4:24AM ; [facility] - Attention deficit disorder without hyperactivity, 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 - Attention-deficit hyperactivity disorder, predominantly inattentive type] - Last Documented On 04/01/2023 4:24AM ; [facility] Medical Equipment - Implanted Devices Includes: Current Devices No Medical Equipment Recorded Medications Includes: Medications discussed during this encounter and other current Medications Discontinued / Stopped on this date CHASE ZIEGLER MD on 01/17/2023 Adderall 20 MG Oral Tablet Provider: Shirin ZIEGLER MD Diagnosis: Last Documented On 03/10/2023 3:04PM By Marylou PARHAM ; [facility] Amoxicillin-Pot Clavulanate 875-125 MG Oral Tablet Provider: JAMIE WILLIS CASSANDRA ARCHITECT-BC Diagnosis: Streptococcal ph aryngitis Last Documented On 03/10/2023 2:42PM By Marylou Squires Sage ; [facility] Benzonatate 200 MG Oral Capsule Provider: SUDARSHAN AVILA CASSANDRA ARCHITECT-C Diagnosis: Cough Last Documented On 03/10/2023 2:42PM By Marylou PARHAM ; [facility] Doxycycline Hyclate 100 MG Oral Capsule Provider: SUDARSHAN AVILA CASSANDRA ARCHITECT-C Diagnosis: Acute sinusitis, unspecified Last Documented On 03/10/2023 2:42PM By Marylou Squires Sage ; [facility] Amoxicillin-Pot Clavulanate 875-125 MG Oral Tablet Provider: JOANNA REDMOND CASSANDRA ARCHITECT-C Diagnosis: Acute maxillary sinusitis, unspecified Last Documented On 03/10/2023 2:42PM By Marylou PARHAM ; [facility] New / Renewed during this visit CHASE ZIEGLER MD on 03/10/2023 Adderall 30 MG Oral Tablet Provider: CHASE ZIEGLER MD 30 day supply: 60 tablet, 0 refills Diagnosis: Attention-deficit hyperactivity disorder, unspecified type One tablet twice a day Pharmacy: [facility] - [address] , [place], [id number] - Last Documented On 04/11/2023 9:39PM By CHRIS ZIEGLER MD ; [facility] Current Medications (continue as prescribed) Adderall 30 MG Oral Tablet 12/18/2023 Provider: CHASE ZIEGLER MD Diagnosis: Attention-defici t hyperactivity disorder, unspecified type One tablet twice a day Last Documented On 12/18/2023 12:55PM By CHRIS ZIEGLER MD ; [facility] Kyleena 19.5 MG Intrauterine Intrauterine device 11/28 Provider: Diagnosis: Last Documented On 11/29/2023 9:47AM By Ángela Zheng ; [facility] Famotidine 20 MG Oral Tablet 11/10/2023 Provider: Diagnosis: Last Documented On 11/29/2023 9:50AM By Ángela Zheng ; [facility] Montelukast Sodium 10 MG Oral Tablet 09/08/2023 Prov ider: Diagnosis: Last Documented On 11/29/2023 9:51AM By Ángela Zheng ; [facility] ZyrTEC Allergy 10 MG Oral Tablet 03/10/2023 Provider : Diagnosis: Last Documented On 03/10/2023 2:42PM By Marylou PARHAM ; [facility] EpiPen 2-Basil 0.3 MG/0.3ML Injection Solution Auto-inje ctor 03/10/2023 Provider: Diagnosis: Last Documented On 03/10/2023 2:44PM By Marylou PARHAM ; [facility] Medications Administered Includes: Administered Medications from this encounter No Administered Medications Recorded Vital Signs Includes: Vital Signs from this encounter Vital Name 03/10/2023 02:46P Blood Pressure Sitting L 122/82 BP Cuff Size Large Pulse Rate-Sitting (bpm) 93 Pulse Rhythm Regular Height (in) 67 Weight (lb) 265.2 Body Mass Index 41.5 Body Surface Area 2.3 Oxygen Saturation (%) 98 Last Documented: On 03/10/2023 2:48PM ; [facility] Results Includes: Results discussed during this encounter No Results Recorded For Specified Dates History of Present Illness Includes: History of Present Illness from this encounter HPI ESTER CHEN is a 32 year old female. - Allergy list reviewed - Medication list reviewed - Feeling fine - No fever - No headache - No neck pain - and No neck stiffness - No eye symptoms - No ear symptoms - No nasal symptoms - , and No throat symptoms - No chest pain or discomfort - and No palpitations - Not feeling congested in the chest - No dyspnea - , and No cough - No heartburn - No nausea - No vomiting - No abdominal pain - No diarrhea - , and No constipation - No urinary symptoms - No musculoskeletal symptoms - No skin symptoms The patient is a 32 years old female with a history of ADHD, presents today for a checkup. She has been taking Adderall 20mg with efficacy and has been requesting refill for the same. She was 265 pounds in the clinic today. She states that she has been trying to lose weight. She walks 30 minutes daily at her home and maintains a healthy diet. She denies any acute concern today. She denies any chest pain, cough, or shortness of breath. She denies any bowel and bladder incontinence. She takes sound sleep at night. Overall, she has been doing well. Social History Description Last Updated No consumption of alcohol 03/10/2023 Last Documented On 3 4:24AM ; [facility] Not a current smoker 03/10/2023 Last Documented On 3 4:24AM ; [facility] Not using drugs 03/10/2023 Last Documented On 3 4:24AM ; [facility] Not using drugs 03/10/2023 Last Documented On 3 2:49PM ; [facility] Tobacco non-user 04/01/2022 Last Documented On 3 2:49PM ; [facility] Current nonsmoker 01/21/2021 Last Documented On 3 2:49PM ; [facility] Not using alcohol 04/05/2017 Last Documented On 3 2:49PM ; [facility] Exercising regularly 3 TIMES PER WEEK WA LKING AND YOGA AND MEDITATION 10/02/2016 Last Documented On 3 2:49PM ; [facility] No caffeine use 10/02/2016 Last Documented On 3 2:49PM ; [facility] Smoking Status Unknown Procedures and Surgical History Includes: Procedures from this encounter Procedures Code Diagnosis Performing Provider Service L ocation Service Date plan of care reviewed and agreed to Last Documented On 3 2:57PM ; [facility] standardized depression screening: negative for symptoms [id number] Last Documented On 3 4:05PM ; [facility] screening for adult depression: impressi on and score one Last Documented On 3 4:05PM ; [facility] Reviewed & agreed to staff entries. Last Documented On 3 2:57PM ; [facility] Clinical summary provided to patient Last Documented On 3 2:57PM ; [facility] Surgical History Last Updated Tonsillectomy 12/07/2011 Last Documented On 3 2:49PM ; [facility] Medical History Includes: Medical History addressed during this encounter Description Last Updated Date COVID symptoms started: January 10 0 01/21/2021 Last Documented On 3 2:49PM ; [facility] LMP: on Nexplanon 04/17/2018 Last Documented On 3 2:49PM ; [facility] TONSILS 5TH GRADE ~ 10/02/2016 Last Documented On 3 2:49PM ; [facility] 0 11/22/2009 Last Documented On 3 2:49PM ; [facility] Family History Includes: Family History addressed during this encounter Description Last Updated Maternal history of family history of ca ncer KIDNEY 10/02/2016 Last Documented On 3 2:49PM ; [facility] Maternal history of family history of ki dney disease 10/02/2016 Last Documented On 3 2:49PM ; [facility] Family history of diabetes mellitus mate rnal grandparents ~mother 12/07/2011 Last Documented On 3 2:49PM ; [facility] Family history of uterine cancer MGM Last Documented On 3 2:49PM ; [facility] Family medical history of high blood pre ssure 11/22/2009 Last Documented On 3 2:49PM ; [facility] Family medical history of High Cholester ol 11/22/2009 Last Documented On 3 2:49PM ; [facility] Family history of malignant female breas t neoplasm maternal grandma 11/22/2009 Last Documented On 3 2:49PM ; [facility] Family history of malignant neoplasm of the ovary mother et Aunt 11/22/2009 Last Documented On 3 2:49PM ; [facility] Review of Systems Includes: Review of Systems from this encounter Systemic: No fever and no chills. Head: No headache. Otolaryngeal: No earache, no nasal discharge, and no sore throat. Cardiovascular: No chest pain or discomfort and no palpitations. Pulmonary: No dyspnea, no cough, and no wheezing. Gastrointestinal: Normal appetite and no heartburn. No nausea, no vomiting, no abdominal pain, and no diarrhea. Genitourinary: No dysuria. Pain with periods. Musculoskeletal: No muscle aches and no localized joint pain. Neurological: No dizziness. Psychological: No sleep disturbances. Mental Status Includes: Mental Status from this encounter Description Oriented to time, place, and person Functional Status Includes: Functional Status from this encounter No Functional Status Recorded Physical Exam Includes: Physical Exam from this encounter Immunizations Includes: Immunizations addressed during this encounter Vaccine Dose # Date Site Reaction(s) Status Source COVID-19 Moderna 1 08/27/2020 Complete (Re ported) Patient Last Documented On 3 2:45PM ; [facility] COVID-19 Moderna 2 09/24/2020 Complete (Re ported) Patient Last Documented On 3 2:45PM ; [facility] Allergies Includes: Active Allergies No Known Allergies Encounters Encounter Provider Location Date Check-In Time Check-Out Time Diagnosis NEW PATIENT EXAM - ADULT CHASE ZIEGLER MD [facility] 023 2:28PM 3:08PM Abnormal Weight Gain,Routine History & Physical Adult Without Abnormal Findings,Malaise and Fatigue,Attentio n Deficit W/o Hyperactivity Predominantly Inattentive Type Insurance Includes: Active Insurance Policies Plan Name Member ID Group # Subscriber Relationship Effect kayleigh Dates 1 - [employer] [id number] ESTER CHEN Self Clinical Notes Includes: Clinical Notes from this encounter * Progress note Date Encounter Last Documented by 03/10/2023 NEW PATIENT EXAM - ADULT Last do cumented on 04/01/2023; 4:24 AM, CHASE ZIEGLER MD; [facility] Active Problems & [...] cancer Chief Complaint The Chief Complaint is: Ckup- Med Refill. History of Present Illness ESTER CHEN is a 32 year old female. - Allergy list reviewed - Medication list reviewed - Feeling fine - No fever - No headache - No neck pain - and No neck stiffness - No eye symptoms - No ear symptoms - No nasal symptoms - , and No throat symptoms - No chest pain or discomfort - and No palpitations - Not feeling congested in the chest - No dyspnea - , and No cough - No heartburn - No nausea - No vomiting - No abdominal pain - No diarrhea - , and No constipation - No urinary symptoms - No musculoskeletal symptoms - No skin symptoms The patient is a 32 years old female with a history of ADHD, presents today for a checkup. She has been taking Adderall 20mg with efficacy and has been requesting refill for the same. She was 265 pounds in the clinic today. She states that she has been trying to lose weight. She walks 30 minutes daily at her home and maintains a healthy diet. She denies any acute concern today. She denies any chest pain, cough, or shortness of breath. She denies any bowel and bladder incontinence. She takes sound sleep at night. Overall, she has been doing well. Current Medication - EpiPen 2-Basil 0.3 MG/0.3ML Injection Solution Auto-injector 0 days, 0 refills - ZyrTEC Allergy 10 MG Oral Tablet One tablet daily 0 days, 0 refills Past Medical/Surgical History Reported: LMP: on Nexplanon. Surgical / Procedural: Tonsillectomy. Exposure: Date COVID symptoms started: January 10. : 0. TONSILS 5TH GRADE . Social History Caffeine use: No caffeine use. Tobacco use: Not a current smoker. Current nonsmoker. Alcohol: No consumption of alcohol and not using alcohol. Drug Use: Not using drugs and not using drugs. Habits: Exercising regularly 3 TIMES PER WEEK WALKING AND YOGA AND MEDITATION. Allergies - No Known Allergies Family History Family medical history of high blood pressure Family medical history of High Cholesterol Diabetes mellitus maternal grandparents mother Malignant female breast neoplasm maternal grandma Malignant neoplasm of ovary mother et Aunt Uterine cancer MGM Maternal: Cancer KIDNEY Kidney disease Review Of Systems Systemic: No fever and no chills. Head: No headache. Otolaryngeal: No earache, no nasal discharge, and no sore throat. Cardiovascular: No chest pain or discomfort and no palpitations. Pulmonary: No dyspnea, no cough, and no wheezing. Gastrointestinal: Normal appetite and no heartburn. No nausea, no vomiting, no abdominal pain, and no diarrhea. Genitourinary: No dysuria. Pain with periods. Musculoskeletal: No muscle aches and no localized joint pain. Neurological: No dizziness. Psychological: No sleep disturbances. Physical Findings - Vitals taken 03/10/2023 02:46 pm BP-Sitting L 122/82 mmHg 100 - 120/56 - 80 BP Cuff Size Large Pulse Rate-Sitting 93 bpm 50 - 100 Pulse Rhythm Regular Height 67 in 60 - 69 Weight 265 lbs 3.2 oz 98 - 183 Body Mass Index 41.5 kg/m2 Body Surface Area 2.3 m2 Oxygen Saturation 98 % 93 - 100 General Appearance: - Well developed. - Well nourished. Eyes: General/bilateral: Extraocular Movements: - Normal. Pupils: - PERRLA. Lungs: - Normal breath sounds/voice sounds. - No wheezing was heard. - No rhonchi were heard. - No rales/crackles were heard. Cardiovascular: Heart Rate And Rhythm: - Normal. Murmurs: - No murmurs were heard. Musculoskeletal System: General/bilateral: - Overall findings were normal. Neurological: - Oriented to time, place, and person. Psychiatric: Psychiatric: Value Normal Range STACI 7 score: 0 Assessment - Routine adult history and physical (18-64 yrs) without abnormal findings [Z00.00 - Encounter for general adult medical examination without abnormal findings] - Abnormal weight gain [R63.5 - Abnormal weight gain] - Malaise and fatigue [R53.83 - Other fatigue] - Attention deficit disorder without hyperactivity, 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 - Attention-deficit hyperactivity disorder, predominantly inattentive type] Therapy - Reviewed & agreed to staff entries. - Clinical summary provided to patient. - Plan of care reviewed and agreed to. Vaccinations - COVID-19 Moderna Dose #1 Status: Prev Hist Date: 08/27/2020 - COVID-19 Moderna Dose #2 Status: Prev Hist Date: 09/24/2020 Discussed ADHD: Dr. Ziegler adjusted the dose of Adderall from 20mg to 30mg BID and provided a refill on the same. Weight management: Dr. Ziegler informed the patient about commonly used injectable medications for weight loss secondary to diabetes. Discussed about phentermine and associated risks benefits with the patient. Provided an order for blood work including CBC, CMP, lipid panel, thyroid panel, and urinalysis today. The patient understands and agrees with the plan. Plan StartCited - Attention-deficit hyperactivity disorder, unspecified type Adderall 30 MG tablet One tablet twice a day, 30 days, 0 refills EndCited StartCited - Encntr for general adult medical exam w/o abnormal findings Lab: THYROID PANEL (TSH & FREE T4) Lab: LIPID PANEL Lab: CMP Lab: CBC WITH DIFF Lab: URINALYSIS WITH MICROSCOPY EndCited Other Tobias Underwood scribing the following documents on behalf of Ky Baez MD. Practice Management Standardized depression screening: negative for symptoms and for adult impression and score one. Health Reminders - Assess BMI satisfied 03/10/2023. - Assess Tobacco Use satisfied 03/10/2023. - Assess Treatment Status satisfied 03/10/2023. - Depression Screening satisfied 03/10/2023. - Follow up plan for Depression Screening satisfied 03/10/2023.
--- OUTSIDE RECORDS SUMMARY | 2024-09-03 09:58 | XMS_ITS | Clinical Summary ---
Author Organization 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 Note: Unchanged Opioid Dependence in Remission 04/17/2018 CHASE ZIEGLER MD Active Last Documented On 04/17/2018 10:25PM ; [facility] Note: Unchanged - Clean since 08-06-13 rodriguez boxone therapy Opioid Dependence 09/18/2013 CHASE ZIEGLER MD Active Last Documented On 04/17/2018 10:16PM ; [facility] Note: Clean since 08-06-13 and on suboxon e therapy Reported Family History of Cancer 12/04/2011 WEN RODRIGUEZ-BC Active Last Documented On 12/04/2011 10:13AM ; [facility] Note: mother - kidney cancer Plan of Treatment - Return to the clinic if condition worsens or new symptoms arise - Last Documented On 11/24/2022 4:01PM ; [facility] - Follow-up visit as needed with an office visit if symptoms persist or worsen - Last Documented On 11/24/2022 4:01PM ; [facility] - Patient to call if problem develops - Last Documented On 11/24/2022 4:01PM ; [facility] Instructions to patient Go to the emergency room if condition worsens Last Documented On 3 3:59PM ; [facility] Watch for signs/symptoms of infection Last Documented On 3 3:59PM ; [facility] Watch for signs/symptoms of infection, return to the clinic if seen Last Documented On 3 3:59PM ; [facility] Assessments Includes: Assessments from this encounter Findings - Group A streptococcus: B hemolytic pharyngitis - Last Documented On 11/24/2022 4:01PM ; [facility] Instructions Includes: Instructions from this encounter Instructions to patient Go to the emergency room if condition worsens Last Documented On 3 3:59PM ; [facility] Watch for signs/symptoms of infection Last Documented On 3 3:59PM ; [facility] Watch for signs/symptoms of infection, return to the clinic if seen Last Documented On 3 3:59PM ; [facility] Medical Equipment - Implanted Devices Includes: Current Devices No Medical Equipment Recorded Medications Includes: Medications discussed during this encounter and other current Medications Discontinued / Stopped on this date ELIZABETH BYRNES on 04/01/2022 Polytrim 84821-1.1 UNIT/ML-% Ophthalmic Solution Provider: ELIZABETH BYRNES Diagnosis: Other mucopurule nt conjunctivitis, bilateral Last Documented On 3 3:23PM By FAMILIA PARHAM ; [facility] New / Renewed during this visit JAMIE FOWLER on 11/24/2022 Amoxicillin-Pot Clavulanate 875-125 MG Oral Tablet Provider: JAMIE FOWLER 10 day supply: 20 tablet, 0 refills Diagnosis: Streptococcal pharyngitis One tablet twice a day Pharmacy: [facility] , [facility], [id number] - Last Documented On 03/10/2023 2:42PM By Marylou PARHAM ; [facility] Current Medications (continue as prescribed) Adderall 30 MG Oral Tablet 12/18/2023 Provider: CHASE ZIEGLER MD Diagnosis: Attention-defici t hyperactivity disorder, unspecified type One tablet twice a day Last Documented On 12/18/2023 12:55PM By CHRIS ZIEGLER MD ; [facility] Kyleena 19.5 MG Intrauterine Intrauterine device 11/28 Provider: Diagnosis: Last Documented On 11/29/2023 9:47AM By Ángela Zheng ; [facility] Famotidine 20 MG Oral Tablet 11/10/2023 Provider: Diagnosis: Last Documented On 11/29/2023 9:50AM By Ángela Zheng ; [facility] Montelukast Sodium 10 MG Oral Tablet 09/08/2023 Prov ider: Diagnosis: Last Documented On 11/29/2023 9:51AM By Ángela Zheng ; [facility] ZyrTEC Allergy 10 MG Oral Tablet 03/10/2023 Provider : Diagnosis: Last Documented On 03/10/2023 2:42PM By Marylou PARHAM ; [facility] EpiPen 2-Basil 0.3 MG/0.3ML Injection Solution Auto-inje ctor 03/10/2023 Provider: Diagnosis: Last Documented On 03/10/2023 2:44PM By Marylou PARAHM ; [facility] Medications Administered Includes: Administered Medications from this encounter No Administered Medications Recorded Vital Signs Includes: Vital Signs from this encounter Vital Name 11/24/2022 03:22P Blood Pressure Standing (mmHg) 122/70 Pulse Rate-Standing (bpm) 93 Temp-Oral (F) 98.8 Height (in) 67 Weight (lb) 263 Body Mass Index 41.2 Body Surface Area 2.3 Oxygen Saturation (%) 98 Last Documented: On 11/24/2022 3:23PM ; [facility] Results Includes: Results discussed during this encounter Group A strep [facility] Ordered by JAMIE FOWLER on Collected: Reported: 11/24/2022 15:26 Last Documented On 3 4:01PM ; [facility] Reviewed by JAMIE WILLIS [facility] on 11/24/2022; All test results are final unless otherwise noted. Rapid Strep pos A (Abnormal) Last Documented On 3 3:26PM ; [facility] LOT # AND EXP. DATE [id number] N (Normal) Last Documented On 3 3:26PM ; [facility] INT. QC ACCEPTABLE? yes N (Normal) Last Documented On 3 3:26PM ; [facility] History of Present Illness Includes: History of Present Illness from this encounter HPI ESTER CHEN is a 32 year old female. - Allergy list reviewed. - Fever - Feeling fine - Not feeling tired - No chills - Do not shake the whole body - Headache - No sinus pain - No neck pain - No eye symptoms - Nasal discharge - Sore throat constantly - Triggered by swallowing - No ear symptoms - No postnasal drip - No nasal passage blockage (stuffiness) - No sneezing - No nasal itching - No chest pain or discomfort - Cough - No dyspnea - No wheezing - Decreased appetite - No heartburn - No nausea - No vomiting - No abdominal pain - No diarrhea - No skin symptoms pt to clinic for above symptoms x 2 days daughter has strep Social History Description Last Updated Tobacco non-user 04/01/2022 Last Documented On 3 3:22PM ; [facility] Current nonsmoker 01/21/2021 Last Documented On 3 3:22PM ; [facility] Social history unchanged 05/02/2017 Last Documented On 3 3:22PM ; [facility] Sexually active has not been s.a since N ovember of 201209/18/2013 Last Documented On 3 3:22PM ; [facility] Congregation affiliation restoration 11/22/2009 Last Documented On 3 3:22PM ; [facility] Sexual history : painful intercourse Last Documented On 3 3:22PM ; [facility] Single 11/22/2009 Last Documented On 3 3:22PM ; [facility] The racial background white 11/22/2009 Last Documented On 3 3:22PM ; [facility] Non-smoker 11/22/2009 Last Documented On 3 3:22PM ; [facility] Smoking Status Unknown Procedures and Surgical History Includes: Procedures from this encounter Procedures Code Diagnosis Performing Provider Service L ocation Service Date continue current medication Last Documented On 3 3:59PM ; [facility] the options include close observation Last Documented On 3 3:59PM ; [facility] watch for signs/symptoms of infection Last Documented On 3 3:59PM ; [facility] watch for signs/symptoms of infection, r eturn to the clinic if seen Last Documented On 3 3:59PM ; [facility] Pt / family were notified th at strep pharyngitis testing was POSITIVE. Strep pharyngitis etiology, natural course, possible complications, and treatment options were discussed. Pt will start antibiotic therapy as ordered. Discussed with pt /family that pt is contagious for 24 hours after start of antibiotic therapy and the importance of completing full course of antibiotic therapy. Recommended replacement of oral care products after three days of antibiotic therapy to reduce risk reinoculation with strep. Observe for signs/symptoms of strep in pt contacts. Discussed with pt /family expected course of improvement. Pt may return to activities after completing 24 hours of antibiotic therapy and feel well. Family to call back if not better in 3 days or worsens Last Documented On 3 3:59PM ; [facility] Pt to use OTC fever/pain product as need ed per product instruction.~ Last Documented On 3 3:59PM ; [facility] plan of care reviewed and agreed to by t he patient Last Documented On 3 3:59PM ; [facility] review of medications documented 1160F Last Documented On 3 3:23PM ; [facility] Increase fluids Last Documented On 3 3:59PM ; [facility] Clinical summary provided to patient Last Documented On 3 3:59PM ; [facility] Surgical History Last Updated Tonsillectomy 12/07/2011 Last Documented On 3 3:22PM ; [facility] Medical History Includes: Medical History addressed during this encounter Description Last Updated Taking OTC pain medication / fever. Usin g Motrin 11/24/2022 Last Documented On 3 4:01PM ; [facility] Taking OTC pain medication /fever. Using Tylenol 11/24/2022 Last Documented On 3 4:01PM ; [facility] Date COVID symptoms started: January 10 0 01/21/2021 Last Documented On 3 3:22PM ; [facility] LMP: on Nexplanon 04/17/2018 Last Documented On 3 3:22PM ; [facility] Taking OTC allergy medication mucinex dm 06/22/2017 Last Documented On 3 3:22PM ; [facility] Taking OTC medications 06/22/2017 Last Documented On 3 3:22PM ; [facility] No recent change in medical history 02/2017 Last Documented On 3 3:22PM ; [facility] TONSILS 5TH GRADE ~ 10/02/2016 Last Documented On 3 3:22PM ; [facility] 0 11/22/2009 Last Documented On 3 3:22PM ; [facility] Family History Includes: Family History addressed during this encounter Description Last Updated Family history unchanged 05/02/2017 Last Documented On 3 3:22PM ; [facility] Maternal history of family history of ca ncer KIDNEY 10/02/2016 Last Documented On 3 3:22PM ; [facility] Maternal history of family history of ki dney disease 10/02/2016 Last Documented On 3 3:22PM ; [facility] Maternal history of cancer kidntey 10/02 Last Documented On 3 3:22PM ; [facility] Family history of diabetes mellitus mate rnal grandparents ~mother 12/07/2011 Last Documented On 3 3:22PM ; [facility] Family history of uterine cancer MGM Last Documented On 3 3:22PM ; [facility] Family history of Cancer 11/22/2009 Last Documented On 3 3:22PM ; [facility] Family medical history of high blood pre ssure 11/22/2009 Last Documented On 3 3:22PM ; [facility] Family medical history of High Cholester ol 11/22/2009 Last Documented On 3 3:22PM ; [facility] Family history of malignant female breas t neoplasm maternal grandma 11/22/2009 Last Documented On 3 3:22PM ; [facility] Family history of malignant neoplasm of the ovary mother et Aunt 11/22/2009 Last Documented On 3 3:22PM ; [facility] Review of Systems Includes: Review of Systems from this encounter Systemic: Fever and chills. Head: Headache. Otolaryngeal: Sore throat. Mental Status Includes: Mental Status from this encounter No Mental Status Recorded Functional Status Includes: Functional Status from this encounter No Functional Status Recorded Physical Exam Includes: Physical Exam from this encounter Allergies Includes: Active Allergies No Known Allergies Encounters Encounter Provider Location Date Check-In Time Check-Out Time Diagnosis COVID SICK VISIT- ESTABLISHED PATIENT JAMIE WILLIS [facility] 11/25/19 23 3:14PM 3:33PM Pharyngitis Streptococcus, Group A: Beta Hemolytic Insurance Includes: Active Insurance Policies Plan Name Member ID Group # Subscriber Relationship Effect kayleigh Dates 1 - [employer] [id number] ESTER CHEN Self Clinical Notes Includes: Clinical Notes from this encounter * Progress note Date Encounter Last Documented by 11/24/2022 COVID SICK VISIT- ESTABLISHED JACKY CHU Last documented on 11/24/2022; 4:01 PM, JAMIE WILLIS [facility]; [facility] Active Problems & Conditions - 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 History of Present Illness ESTER CHEN is a 32 year old female. - Allergy list reviewed. - Fever - Feeling fine - Not feeling tired - No chills - Do not shake the whole body - Headache - No sinus pain - No neck pain - No eye symptoms - Nasal discharge - Sore throat constantly - Triggered by swallowing - No ear symptoms - No postnasal drip - No nasal passage blockage (stuffiness) - No sneezing - No nasal itching - No chest pain or discomfort - Cough - No dyspnea - No wheezing - Decreased appetite - No heartburn - No nausea - No vomiting - No abdominal pain - No diarrhea - No skin symptoms pt to clinic for above symptoms x 2 days daughter has strep Current Medication - Adderall 20 MG Oral Tablet 1 tab by mouth up to three as needed., 30 days, 0 refills Past Medical/Surgical History Reported: No recent change in medical history and LMP: on Nexplanon. Surgical / Procedural: Tonsillectomy. Medications: Taking OTC pain medication / fever. Using Motrin, lqfi-erp-miswspa /fever. Using Tylenol, and icee-vmo-sacldhq allergy medication mucinex dm. Exposure: Date COVID symptoms started: January 10. : 0. TONSILS 5TH GRADE . Social History Racial background white and social history unchanged. Tobacco use: Current nonsmoker and non-smoker. Congregation Status: Congregation affiliation restoration. Marital: Single. Sexual: Sexual history: painful intercourse and sexually active has not been s.a since May of 2013. Allergies - No Known Allergies Family History Family history unchanged Family medical history of high blood pressure Family medical history of High Cholesterol Cancer Diabetes mellitus maternal grandparents mother Malignant female breast neoplasm maternal grandma Malignant neoplasm of ovary mother et Aunt Uterine cancer MGM Maternal: Cancer KIDNEY Kidney disease Cancer kidntey Review Of Systems Systemic: Fever and chills. Head: Headache. Otolaryngeal: Sore throat. Physical Findings - Vitals taken 11/24/2022 03:22 pm BP-Standing 122/70 mmHg Pulse Rate-Standing 93 bpm Temp-Oral 98.8 F Height 67 in Weight 263 lbs Body Mass Index 41.2 kg/m2 Body Surface Area 2.3 m2 Oxygen Saturation 98 % General Appearance: - Awake. - Alert. - Well developed. - Well nourished. - In no acute distress. Eyes: General/bilateral: Pupils: - PERRLA. Ears: Right Ear: Tympanic Membrane: - Normal. Left Ear: Tympanic Membrane: - Normal. Nose: General/bilateral: Discharge: - No nasal discharge. Sinus Tenderness: - No sinus tenderness. Pharynx: Oropharynx: - Tonsils showed abnormalities. - Tonsils were absent. - Inflamed. - Soft palate was normal. Mucosal: - Pharynx showed no accumulation of mucous. Lymph Nodes: - Lymph nodes: - Anterior cervical lymph nodes were enlarged on the right. - Anterior cervical lymph nodes were enlarged on the left. - Tender lymph nodes. Lungs: - Clear to auscultation. Cardiovascular: Heart Rate And Rhythm: - Normal. Abdomen: Auscultation: - Bowel sounds were normal. Palpation: - No direct tenderness in the abdomen. Skin: - Mucous membranes were not dry. Tests - Test: Group A strep Report Date: 11/24/2022 Rapid Strep pos Abnormal LOT # AND EXP. DATE [id number] Normal INT. QC ACCEPTABLE? yes Normal Assessment - Group A streptococcus: B hemolytic pharyngitis Therapy - The options include close observation. - Increase fluids. - Watch for signs/symptoms of infection return to the clinic if seen. - Continue current medication. - Clinical summary provided to patient. - Plan of care reviewed and agreed to by the patient. Pt / family were notified that strep pharyngitis testing was POSITIVE. Strep pharyngitis etiology, natural course, possible complications, and treatment options were discussed. Pt will start antibiotic therapy as ordered. Discussed with pt /family that pt is contagious for 24 hours after start of antibiotic therapy and the importance of completing full course of antibiotic therapy. Recommended replacement of oral care products after three days of antibiotic therapy to reduce risk reinoculation with strep. Observe for signs/symptoms of strep in pt contacts. Discussed with pt /family expected course of improvement. Pt may return to activities after completing 24 hours of antibiotic therapy and feel well. Family to call back if not better in 3 days or worsens. Pt to use OTC fever/pain product as needed per product instruction. . Counseling/Education - Go to the emergency room if condition worsens Discussed Finish Full prescription of antibiotics. Eat yogurt and BRAT diet if diarrhea develops Drink 8-8oz glasses of water a day. Gays teeth twice a day Get a new tooth brush and new tooth paste day 4 of antibiotic therapy Plan StartCited - Streptococcal pharyngitis In office procedures/*Clia Waived Labs: Rapid Strep Test Amoxicillin-Pot Clavulanate 875-125 MG tablet One tablet twice a day, 10 days, 0 refills EndCited - Return to the clinic if condition worsens or new symptoms arise - Follow-up visit as needed with an office visit if symptoms persist or worsen - Patient to call if problem develops Practice Management Review of medications documented. Health Reminders - Assess BMI satisfied 11/24/2022. - Assess Tobacco Use satisfied 11/24/2022.
--- OUTSIDE RECORDS SUMMARY | 2024-09-03 09:58 | XMS_ITS | Continuity of Care Document ---
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 Name Role Phone Devang Mims MD Unavailable Unavailable Allergies, Adverse Reactions, Alerts Substance Reaction Status Criticality No Known Allergies Active No Inform ation Medications Medication Instructions Dosage Effective Dates (start - stop) Status Comments Adderall 30 mg tablet take 1.5 Tablet (45MG) by oral route every day 45 MG - Active take one in AM and 1/2 in the afternoon Xanax 1 mg tablet take 1 tablet (1MG) by oral route every 4 - 6 hours 1 MG - Active avoid driving or operate machines Procedures Procedure Date OFFICE/OUTPATIENT VISIT, EST PREV VISIT, EST, AGE 18-39 OFFICE/OUTPATIENT VISIT, EST Advance Directives Directive Yes / No Effective Date File Name No Information Encounters Encounter Description Practice Location Reason(s) For Visit Diagnoses Date Provider Providers Copied on Encounter [facility], [address] [place], [place], [id number], tel:[phone] [facility] No Information 0 3 Prasanna Siddiqi. [email or web address] [facility] [place], [place], [id number] , [place]. tel:[phone] [facility], [address] [place], [id number], [place] tel:[phone] [facility] Medicine No Information 2 3 Prasanna Siddiqi. [address] [facility] [place], [place], [id number] , [place]. tel:[phone] OFFICE/OUTPA TIENT VISIT, EST [facility], [address] [place], [place], [id number], [place] tel:[phone] [facility] Medicine ADD (chief complaint) anxiety (chief complaint) Dietary surveillance and counselingHypertens ion, UnspecifiedAttentio n deficit disorder of childhood without mention of hyperactivityGenera lized anxiety disorder 0-201 3 Prasanna Siddiqi. [address], [place], [place], [id number] , [place]. tel:[phone] Referring Provider: Pepito De Leon [facility], [place], [place], [id number]. tel:[phone] PREV VISIT, EST, AGE 18-39 [facility], [address], [place], [place], [id number], [place] tel:[phone] [facility] physical (chief complaint) Dietary surveillance and counselingRoutine Medical ExamAttention deficit disorder of childhood without mention of hyperactivityGenera lized anxiety disorderRoutine Medical Exam 8201 2 Prasanna Siddiqi. [address], [place], [place], [id number] , [place]. tel:[phone] Referring Provider: Pepito De Leon [address], [place], [place], [id number]. tel:[phone] Family History Family Member Type Diagnosis Age At Onset Mother Problem (finding) Alive and well Brother Problem (finding) Alive and well Father Problem (finding) Alive and well Payers Payer name Insurance type Covered democrat ID Authoriza tion(s) No Information Social History Type Description Quantity Date Captured Comments Sex Female Smoking Status No Information Chief Complaint And Reason For Visit No Information Plan Of Treatment Date Type Action Status No Information History Of Present Illness Encounter Date Complaint History Of Prese nt Illness No Information Instructions Date Instruction Additional Infor juneion Decrease caloric intake Related to Dietary surveillance counseling Dietary counseling Related to Di etary surveillance counseling Decrease caloric intake Related to Dietary surveillance counseling Dietary counseling Related to Di etary surveillance counseling Assessments Type Assessment Date No Information
--- OUTSIDE RECORDS SUMMARY | 2024-09-03 09:58 | XMS_ITS ---
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
--- OUTSIDE RECORDS SUMMARY | 2024-09-03 09:59 | XMS_ITS | Clinical Summary ---
Author Organization [facility] Address [address] [place] [address] Phone Care Team Providers Care Formstone Fitter Name Role Phone CHASE ZIEGLER MD Primary Care Provider [phone] WILLIAM HUDSON Unavailable [phone] Reason for Visit and Chief Complaint The Chief Complaint is: Ckup- Med Refill Problems Includes: Problems addressed during this encounter and other active Problems Current Visit Onset Date Resolved Date Provider Conditio n Status Adhd, Predominantly Inattentive Type 04/01/2023 CHASE ZIEGLER MD Active Last Documented On 04/01/2023 4:23AM ; [facility] Note: Unchanged 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 04/01/2023 CHASE ZIEGLER MD Active Last Documented On 04/01/2023 4:23AM ; [facility] Note: Unchanged 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 04/17/2018 CHASE ZIEGLER MD Active Last Documented On 04/17/2018 10:19PM ; [facility] Note: Unchanged Past Visits Onset Date Resolved Date Provider Condition Status Opioid Dependence in Remission 04/17/2018 CHASE ZIEGLER MD Active Last Documented On 04/17/2018 10:25PM ; [facility] Note: Unchanged - Clean since 08-06-13 rodriguez boxone therapy Opioid Dependence 09/18/2013 CHASE ZIEGLER MD Active Last Documented On 04/17/2018 10:16PM ; [facility] Note: Clean since 08-06-13 and on suboxon e therapy Reported Family History of Cancer 12/04/2011 WEN BOOKER ZECHARIAH-BC Active Last Documented On 12/04/2011 10:13AM ; [facility] Note: mother - kidney cancer Plan of Treatment No Plan of Treatment Recorded Assessments Includes: Assessments from this encounter Findings - Routine adult history and physical (18-64 yrs) without abnormal findings [Z00.00 - Encounter for general adult medical examination without abnormal findings] - Last Documented On 04/01/2023 4:24AM ; [facility] - Abnormal weight gain [R63.5 - Abnormal weight gain] - Last Documented On 04/01/2023 4:24AM ; [facility] - Malaise and fatigue [R53.83 - Other fatigue] - Last Documented On 04/01/2023 4:24AM ; [facility] - Attention deficit disorder without hyperactivity, 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 - Attention-deficit hyperactivity disorder, predominantly inattentive type] - Last Documented On 04/01/2023 4:24AM ; [facility] Medical Equipment - Implanted Devices Includes: Current Devices No Medical Equipment Recorded Medications Includes: Medications discussed during this encounter and other current Medications Discontinued / Stopped on this date CHASE ZIEGLER MD on 01/17/2023 Adderall 20 MG Oral Tablet Provider: hSirin ZIEGLER MD Diagnosis: Last Documented On 03/10/2023 3:04PM By Marylou PARHAM ; [facility] Amoxicillin-Pot Clavulanate 875-125 MG Oral Tablet Provider: JAMIE WILLIS EDGER AUTOMATIC-BC Diagnosis: Streptococcal ph aryngitis Last Documented On 03/10/2023 2:42PM By Marylou Squires Sage ; [facility] Benzonatate 200 MG Oral Capsule Provider: SUDARSHAN AVILA EDGER AUTOMATIC-C Diagnosis: Cough Last Documented On 03/10/2023 2:42PM By Marylou PARHAM ; [facility] Doxycycline Hyclate 100 MG Oral Capsule Provider: SUDARSHAN AVILA EDGER [employer]OMATIC-C Diagnosis: Acute sinusitis, unspecified Last Documented On 03/10/2023 2:42PM By Marylou Squires Sage ; [facility] Amoxicillin-Pot Clavulanate 875-125 MG Oral Tablet Provider: JOANNA REDMOND EDGER [employer]OMATIC-C Diagnosis: Acute maxillary sinusitis, unspecified Last Documented On 03/10/2023 2:42PM By Marylou PARHAM ; [facility] New / Renewed during this visit CHASE ZIEGLER MD on 03/10/2023 Adderall 30 MG Oral Tablet Provider: CHASE ZIEGLER MD 30 day supply: 60 tablet, 0 refills Diagnosis: Attention-deficit hyperactivity disorder, unspecified type One tablet twice a day Pharmacy: [facility] - [address] , [place], [id number] - Last Documented On 04/11/2023 9:39PM By CHRIS ZIEGLER MD ; [facility] Current Medications (continue as prescribed) Adderall 30 MG Oral Tablet 12/18/2023 Provider: CHASE ZIEGLER MD Diagnosis: Attention-defici t hyperactivity disorder, unspecified type One tablet twice a day Last Documented On 12/18/2023 12:55PM By CHRIS ZIEGLER MD ; [facility] Kyleena 19.5 MG Intrauterine Intrauterine device 11/28 Provider: Diagnosis: Last Documented On 11/29/2023 9:47AM By Ángela Zheng ; [facility] Famotidine 20 MG Oral Tablet 11/10/2023 Provider: Diagnosis: Last Documented On 11/29/2023 9:50AM By Ángela Zheng ; [facility] Montelukast Sodium 10 MG Oral Tablet 09/08/2023 Prov ider: Diagnosis: Last Documented On 11/29/2023 9:51AM By Ángela Zheng ; [facility] ZyrTEC Allergy 10 MG Oral Tablet 03/10/2023 Provider : Diagnosis: Last Documented On 03/10/2023 2:42PM By Marylou PARHAM ; [facility] EpiPen 2-Basil 0.3 MG/0.3ML Injection Solution Auto-inje ctor 03/10/2023 Provider: Diagnosis: Last Documented On 03/10/2023 2:44PM By Marylou PARHAM ; [facility] Medications Administered Includes: Administered Medications from this [...] 98 Last Documented: On 03/10/2023 2:48PM ; [facility] Results Includes: Results discussed during this encounter [...] 03/10/2023 Last Documented On 3 4:24AM ; [facility] Not a current smoker 03/10/2023 Last Documented On 3 4:24AM ; [facility] Not using drugs 03/10/2023 Last Documented On 3 4:24AM ; [facility] Not using drugs 03/10/2023 Last Documented On 3 2:49PM ; [facility] Tobacco non-user 04/01/2022 Last Documented On 3 2:49PM ; [facility] Current nonsmoker 01/21/2021 Last Documented On 3 2:49PM ; [facility] Not using alcohol 04/05/2017 Last Documented On 3 2:49PM ; [facility] Exercising regularly 3 TIMES PER WEEK WA LKING AND YOGA AND MEDITATION 10/02/2016 Last Documented On 3 2:49PM ; [facility] No caffeine use 10/02/2016 Last Documented On 3 2:49PM ; [facility] Smoking Status Unknown Procedures and Surgical History Includes: Procedures from this encounter Procedures Code Diagnosis Performing Provider Service L ocation Service Date plan of care reviewed and agreed to Last Documented On 3 2:57PM ; [facility] standardized depression screening: negative for symptoms 3351F Last Documented On 3 4:05PM ; [facility] screening for adult depression: impressi on and score one Last Documented On 3 4:05PM ; [facility] Reviewed & agreed to staff entries. Last Documented On 3 2:57PM ; [facility] Clinical summary provided to patient Last Documented On 3 2:57PM ; [facility] Surgical History Last Updated Tonsillectomy 12/07/2011 Last Documented On 3 2:49PM ; [facility] Medical History Includes: Medical History addressed during this encounter Description Last Updated Date COVID symptoms started: January 10 0 01/21/2021 Last Documented On 3 2:49PM ; [facility] LMP: on Nexplanon 04/17/2018 Last Documented On 3 2:49PM ; [facility] TONSILS 5TH GRADE ~ 10/02/2016 Last Documented On 3 2:49PM ; [facility] 0 11/22/2009 Last Documented On 3 2:49PM ; [facility] Family History Includes: Family History addressed during this encounter Description Last Updated Maternal history of family history of ca ncer KIDNEY 10/02/2016 Last Documented On 3 2:49PM ; [facility] Maternal history of family history of ki dney disease 10/02/2016 Last Documented On 3 2:49PM ; [facility] Family history of diabetes mellitus mate rnal grandparents ~mother 12/07/2011 Last Documented On 3 2:49PM ; [facility] Family history of uterine cancer MGM Last Documented On 3 2:49PM ; [facility] Family medical history of high blood pre ssure 11/22/2009 Last Documented On 3 2:49PM ; [facility] Family medical history of High Cholester ol 11/22/2009 Last Documented On 3 2:49PM ; [facility] Family history of malignant female breas t neoplasm maternal grandma 11/22/2009 Last Documented On 3 2:49PM ; [facility] Family history of malignant neoplasm of the ovary mother et Aunt 11/22/2009 Last Documented On 3 2:49PM ; [facility] Review of Systems Includes: Review of [...] Patient Last Documented On 3 2:45PM ; [facility] COVID-19 Moderna 2 09/24/2020 Complete (Re ported) Patient Last Documented On 3 2:45PM ; [facility] Allergies Includes: Active Allergies No Known Allergies Encounters Encounter Provider Location Date Check-In Time Check-Out Time Diagnosis NEW PATIENT EXAM - ADULT CHASE ZIEGLER MD [facility] 023 2:28PM 3:08PM Abnormal Weight Gain,Routine History & Physical Adult Without Abnormal Findings,Malaise and Fatigue,Attentio n Deficit W/o Hyperactivity Predominantly Inattentive Type Insurance Includes: Active Insurance Policies Plan Name Member ID Group # Subscriber Relationship Effect kayleigh Dates 1 - [employer] [id number] ESTER CHEN Self Clinical Notes Includes: Clinical Notes from this encounter * Progress note Date Encounter Last Documented by 03/10/2023 NEW PATIENT EXAM - ADULT Last do cumented on 04/01/2023; 4:24 AM, CHASE ZIEGLER MD; [facility] Active Problems & Conditions - [...] Prev Hist Date: 09/24/2020 Discussed ADHD: Dr. Ziegelr adjusted the dose of Adderall from 20mg [...]
--- OUTSIDE RECORDS SUMMARY | 2024-09-03 09:59 | XMS_ITS ---
Author Organization [email or web address] Address [address] [facility] [address] [place] [address] Care Team Providers Care Electric Drill Operator Name Role Phone Unavailable Primary Care Physician Unavailab le Medications Name Start Date Expiration Date SIG Comments Kyleena 17.5 mcg/24 hrs (5yrs) 19.5mg intrauterine device 08/13/2023 08/14/2023 place 1 device by intrauterine route once Payers Insurance Name Company Name Plan Name Plan Number Policy Number Policy Group Number Start Date Aetna Aetna [id number] N/A History of Encounters Visit Date Visit Type Provider 08/13/2023 My-IUD Tele-Med Consult Dr. Sharad Valdez MD
--- OUTSIDE RECORDS SUMMARY | 2024-09-03 09:59 | XMS_ITS | Clinical Summary ---
Author Organization [facility] Address [address] [place] [address] Phone Care Team Providers Care Senior Center Director Name Role Phone CHASE ZIEGLER MD Primary Care Provider [phone] WILLIAM HUDSON Unavailable [phone] Reason for Visit and Chief Complaint The Chief Complaint is: PT C/O HAVING PINK EYE IN BOTH EYE Problems Includes: Problems addressed during this encounter and other active Problems All Visits Onset Date Resolved Date Provider Condition S tatus Adhd, Predominantly Inattentive Type 04/01/2023 CHASE ZIEGLER MD Active Last Documented On 04/01/2023 4:23AM ; [facility] Note: Unchanged 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 04/01/2023 CHASE ZIEGLER MD Active Last Documented On 04/01/2023 4:23AM ; [facility] Note: Unchanged 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 04/17/2018 CHASE ZIEGLER MD Active Last Documented On 04/17/2018 10:19PM ; [facility] Note: Unchanged Opioid Dependence in Remission 04/17/2018 CHASE ZIEGLER MD Active Last Documented On 04/17/2018 10:25PM ; [facility] Note: Unchanged - Clean since 08-06-13 rodriguez boxone therapy Opioid Dependence 09/18/2013 CHASE ZIEGLER MD Active Last Documented On 04/17/2018 10:16PM ; [facility] Note: Clean since 08-06-13 and on suboxon e therapy Reported Family History of Cancer 12/04/2011 WEN RODRIGUEZ-BC Active Last Documented On 12/04/2011 10:13AM ; [facility] Note: mother - kidney cancer Plan of Treatment If symptoms worsen or do not improve call/return to office. - Last Documented On 04/01/2022 10:26AM ; [facility] Assessments Includes: Assessments from this encounter Findings - Acute conjunctivitis [H10.023 - Other mucopurulent conjunctivitis, bilateral] - Last Documented On 04/01/2022 10:26AM ; [facility] Medical Equipment - Implanted Devices Includes: Current Devices No Medical Equipment Recorded Medications Includes: Medications discussed during this encounter and other current Medications New / Renewed during this visit ELIZABETH QUISPE-Hussein on 04/01/2022 Polytrim 81596-3.1 UNIT/ML-% Ophthalmic Solution Provider: ELIZABETH QUISPE-Hussein 10 day supply: 10 mL, 0 refills Diagnosis: Other mucopurulent conjunctivitis, bilateral as directed 1 drop in affect ed eye q4 hours Pharmacy: [facility]) - [address] [place], [id number] - Last Documented On 3:23PM By FAMILIA PARHAM ; [facility] Current Medications (continue as prescribed) Adderall 30 MG Oral Tablet 12/18/2023 Provider: CHASE ZIEGLER MD Diagnosis: Attention-defici t hyperactivity disorder, unspecified type One tablet twice a day Last Documented On 12/18/2023 12:55PM By CHRIS ZIEGLER MD ; [facility] Kyleena 19.5 MG Intrauterine Intrauterine device 11/28 Provider: Diagnosis: Last Documented On 11/29/2023 9:47AM By Ángela Zheng ; [facility] Famotidine 20 MG Oral Tablet 11/10/2023 Provider: Diagnosis: Last Documented On 11/29/2023 9:50AM By Ángela Zheng ; [facility] Montelukast Sodium 10 MG Oral Tablet 09/08/2023 Prov ider: Diagnosis: Last Documented On 11/29/2023 9:51AM By Ángela Zheng ; [facility] ZyrTEC Allergy 10 MG Oral Tablet 03/10/2023 Provider : Diagnosis: Last Documented On 03/10/2023 2:42PM By Marylou PARHAM ; [facility] EpiPen 2-Basil 0.3 MG/0.3ML Injection Solution Auto-inje ctor 03/10/2023 Provider: Diagnosis: Last Documented On 03/10/2023 2:44PM By Marylou PARHAM ; [facility] Medications Administered Includes: Administered [...] Last Documented: On 04/01/2022 10:25A M ; [facility] Results Includes: Results discussed during this [...] 04/01/2022 Last Documented On 2 10:26AM ; [facility] Smoking Status Unknown Procedures and Surgical History Includes: Procedures from this encounter Procedures Code Diagnosis Performing Provider Service L ocation Service Date use of tobacco assessment performed 1000F Last Documented On 2 10:24AM ; [facility] Medical History Includes: Medical History addressed [...] IN PATIENT - ESTABLISHED PT ELIZABETH GARCIAP-C [facility] 022 10:22AM 10:29AM Conjunctivitis Acute Insurance Includes: Active Insurance Policies Plan Name Member ID Group # Subscriber Relationship Effect kayleigh Dates 1 - [employer] [id number] ESTER CHEN Self Clinical Notes Includes: Clinical Notes from this encounter No Clinical Notes Recorded
--- OUTSIDE RECORDS SUMMARY | 2024-09-03 09:59 | XMS_ITS | Patient Health Record ---
Author Organization [facility] Address [address] [place] [address] Care Team Providers Care Head Worker Name Role Phone Issa Osullivan Primary Care Provider UnavailShasta Cortes Unavailable [phone] [employer], Provider Unavailable Unavailab le Allergies No Known Allergies Reason For Referral No Information Medications Medication SIG (Take, Route, Frequency, Duration) Notes Start Date End Date Status CETIRIZINE HYDROCHLORIDE 10 mg 1 tab(s) orally once a day 07/30/2020 A ctive MONTELUKAST SODIUM 10 mg 1 tab(s) orally 60 minutes prior to SCIT for 30 days 09/06/2023 Active MONTELUKAST 10 mg 1 tab(s) orally once a day for 30 day(s) 09/15/2023 Active LEVOCETIRIZINE 5 mg 1 tab(s) orally once a day (in the evening) for 30 day(s) 09/15/2023 Active FAMOTIDINE 20 mg 1 tab(s) orally 2 ti mes a day for 30 days 09/15/2023 Active Famotidine 20 MG 1 tab(s) orally 2 ti mes a day Active ZYRTEC 10 mg 1 tab(s) orally bid Active ZYRTEC 10 mg 1 tab(s) orally bid Active Adderall 20 MG 1 tab(s) orally 2 ti mes a day for 30 day(s) Active FAMOTIDINE 20 mg 1 tab(s) orally 2 ti mes a day Active ADDERALL 20 mg 1 tab(s) orally 2 ti mes a day for 30 day(s) Active EpiPen 2-Basil 0.3 MG/0.3ML as directed intramuscularly once for 1 dose(s) Active FLONASE 50 mcg/inh as directed in each nostril once a day for 30 day(s) Active Cetirizine HCl 10 MG 1 tab(s) orally once a day Active Flonase Allergy Relief 50 MCG/ACT as directed in each nostril once a day for 30 day(s) Active Montelukast Sodium 10 MG 1 tab(s) orally once a day for 30 day(s) 09/15/2023 Active ZyrTEC Allergy 10 MG 1 tab(s) orally bid Active LEVOCETIRIZINE 5 mg 1 tab(s) orally once a day (in the evening) for 30 day(s) 09/15/2023 Active Olopatadine HCl 0.2 % 1 gtt in each affe cted eye once a day for 10 day(s) Active MONTELUKAST 10 mg 1 tab(s) orally once a day for 30 day(s) 09/15/2023 Active Levocetirizine Dihydrochloride 5 MG 1 tab(s) orally once a day (in the evening) for 30 day(s) 09/15/2023 Active Famotidine 20 MG 1 tab(s) orally 2 ti mes a day for 30 days 09/15/2023 Active OLOPATADINE OPHTHALMIC 0.2% 1 gtt in each affected eye once a day for 10 day(s) Active Montelukast Sodium 10 MG 1 tab(s) orally 60 minutes prior to SCIT for 30 days 09/06/2023 Active EPIPEN 2-BASIL 0.3 mg as directed intramuscularly once for 1 dose(s) Active FAMOTIDINE 20 mg 1 tab(s) orally 2 ti mes a day Active Immunizations Vaccine Route Administration Date Status Comme nts NOC Flucelevax Quadrivalent Unknown 07/26/2020 Administ ered Social History Tobacco Use: Social History Observation Description Date Details (start date - stop date) Never Smoker NA - NA Smoking Smart Form: Question Answer Notes Are you a: never smoker Problems Problem Type SNOMED Code ICD Code Onset Dates Problem Status W/U Status Risk Notes Problem Angioneurotic edema (44318961) Angioneurotic edema, initial encounter (T78.3XXA) Active confirmed Problem Attention deficit hyperactivity disorder (513530873) Attention-deficit hyperactivity disorder, unspecified type (F90.9) Active confirmed Problem Chronic allergic conjunctivitis (67579385) Other chronic allergic conjunctivitis (H10.45) Active confirmed Problem Allergic rhinitis caused by pollen (disorder) (16333827) Allergic rhinitis due to pollen (J30.1) Active confirmed Problem Allergic rhinitis (61735206) Other allergic rhinitis (J30.89) Active confirmed Problem 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 nuts and seeds, initial encounter (T78.05XA) Active confirmed Problem Angioneurotic edema (00251491) Angioneurotic edema, subsequent encounter (T78.3XXD) Active confirmed Problem 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 nut (268548956) 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 nuts and seeds, subsequent encounter (T78.05XD) Active confirmed Vital Signs Blood pressure diastolic 83 mm Hg 10/14/2023 Oximetry 100 % 10/14/2023 Height 67 in 10/14/2023 Blood pressure systolic 123 mm Hg 10/14/2023 Weight 247.4 lbs 09/15/2023 BMI 38.74 kg/m2 09/15/2023 Encounters Encounter Location Date Provider Diagnosis [address] [address] 01/08/2024 Provider [facility] [address] [place], [place] [address] [address] [phone] 09/06/2023 Shasta Newell Allergic rhinitis du e to pollen J30.1 ; Allergic rhinitis due to animal (cat) (dog) hair and dander J30.81 ; Other allergic rhinitis J30.89 and Other chronic allergic conjunctivitis H10.45 [facility] [address] [place] [address] [address] [address] 09/15/2023 Shasta Newell Anaphylactic reactio n due to tree nuts and seeds, subsequent encounter T78.05XD ; Angioneurotic edema, subsequent encounter T78.3XXD ; Allergic rhinitis due to pollen J30.1 ; Other allergic rhinitis J30.89 and Other chronic allergic conjunctivitis H10.45 [facility] [address] [place], [place] [address] [address] [address] 09/20/2023 Shasta Newell Allergic rhinitis du e to pollen J30.1 ; Allergic rhinitis due to animal (cat) (dog) hair and dander J30.81 ; Other allergic rhinitis J30.89 and Other chronic allergic conjunctivitis H10.45 [facility] [address] [place] [address] [address] 09/27/2023 Shasta Reece Allergic rhinitis du e to pollen J30.1 ; Allergic rhinitis due to animal (cat) (dog) hair and dander J30.81 ; Other allergic rhinitis J30.89 and Other chronic allergic conjunctivitis H10.45 [facility] [address] [place] [address] [address] 10/04/2023 Shasta Reece Allergic rhinitis du e to pollen J30.1 ; Allergic rhinitis due to animal (cat) (dog) hair and dander J30.81 ; Other allergic rhinitis J30.89 and Other chronic allergic conjunctivitis H10.45 [facility] [address] [place] [address] [address] [address] 10/14/2023 Shasta Reece Allergic rhinitis du e to pollen J30.1 ; Allergic rhinitis due to animal (cat) (dog) hair and dander J30.81 ; Other allergic rhinitis J30.89 and Other chronic allergic conjunctivitis H10.45 [facility] [address] [place] [address] [address] 10/18/2023 Shasta Reece Allergic rhinitis du e to pollen J30.1 ; Other allergic rhinitis J30.89 and Other chronic allergic conjunctivitis H10.45 [facility] [address] [place] [address] [address] 10/25/2023 Shasta Reece Allergic rhinitis du e to pollen J30.1 ; Other allergic rhinitis J30.89 and Other chronic allergic conjunctivitis H10.45 [facility] [address] [place] [address] [address] 11/02/2023 Shasta Reece Allergic rhinitis du e to pollen J30.1 ; Other allergic rhinitis J30.89 and Other chronic allergic conjunctivitis H10.45 [facility] [address] [place], [place] [address] [address] [address] 11/08/2023 Shasta Newell Allergic rhinitis du e to pollen J30.1 ; Other allergic rhinitis J30.89 and Other chronic allergic conjunctivitis H10.45 [facility] [address] [place] [address] [address] 11/22/2023 Shasta Newell Allergic rhinitis du e to pollen J30.1 ; Other allergic rhinitis J30.89 and Other chronic allergic conjunctivitis H10.45 [facility] [address] [place] [address] [address] [address] 12/07/2023 Shasta Newell Allergic rhinitis du e to pollen J30.1 ; Other allergic rhinitis J30.89 and Other chronic allergic conjunctivitis H10.45 [facility] [address] [place] [address] [address] 12/21/2023 Shasta Newell Allergic rhinitis du e to pollen J30.1 ; Other allergic rhinitis J30.89 and Other chronic allergic conjunctivitis H10.45 [facility] [address] [place] [phone] 01/18/2024 Shasta Newell Allergic rhinitis du e to pollen J30.1 ; Other allergic rhinitis J30.89 and Other chronic allergic conjunctivitis H10.45 [facility] [address] [place] [address] 09/06/2023 Shasta Newell Allergic rhinitis du e to pollen J30.1 and Angioneurotic edema, initial encounter T78.3XXA [facility] [address] [place] [address] 09/15/2023 Shasta Newell [facility] [address] [place] [address] 04/25/2024 Shasta Newell [facility] [address] [place] [address] 02/15/2024 Shasta Newell [facility] [address] [place] [address] 02/17/2024 Shasta Newell Assessments Encounter Date Diagnosis (ICD Code) Assessment Notes Treatment Notes Treatment Clinical Notes Section Notes 09/06/2023 Allergic rhinitis due to pollen (ICD-10 - J30.1) 09/06/2023 Allergic rhinitis due to pollen (ICD-10 - J30.1) 09/15/2023 Angioneurotic edema, subsequent encounter (ICD-10 - T78.3XXD) Normal C4 and tryptase. Recent hives, but no angioedema. Considerations include autoimmune, viral, stress, or idiopathic. Continue treatment with Zyrtec 10 mg BID, Famotidine 20 mg BID. 09/15/2023 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 nuts and seeds, subsequent encounter (ICD-10 - T78.05XD) [place] IgE 1.7 and almond IgE 1.19 with positive skin testing to almond. Per records, negative walnut skin testing. History is consistent with anaphylaxis. Continue avoidance of problematic tree nuts. 09/20/2023 Allergic rhinitis due to pollen (ICD-10 - J30.1) 09/27/2023 Allergic rhinitis due to pollen (ICD-10 - J30.1) 10/04/2023 Allergic rhinitis due to pollen (ICD-10 - J30.1) 10/14/2023 Allergic rhinitis due to pollen (ICD-10 - J30.1) 10/18/2023 Allergic rhinitis due to pollen (ICD-10 - J30.1) 10/18/2023 Other allergic rhinitis (ICD-10 - J30.89) 10/25/2023 Allergic rhinitis due to pollen (ICD-10 - J30.1) 10/25/2023 Other allergic rhinitis (ICD-10 - J30.89) 11/02/2023 Allergic rhinitis due to pollen (ICD-10 - J30.1) 11/02/2023 Other allergic rhinitis (ICD-10 - J30.89) 11/08/2023 Allergic rhinitis due to pollen (ICD-10 - J30.1) 11/08/2023 Other allergic rhinitis (ICD-10 - J30.89) 11/22/2023 Allergic rhinitis due to pollen (ICD-10 - J30.1) 11/22/2023 Other allergic rhinitis (ICD-10 - J30.89) 12/07/2023 Allergic rhinitis due to pollen (ICD-10 - J30.1) 12/07/2023 Other allergic rhinitis (ICD-10 - J30.89) 12/21/2023 Allergic rhinitis due to pollen (ICD-10 - J30.1) 12/21/2023 Other allergic rhinitis (ICD-10 - J30.89) 01/18/2024 Allergic rhinitis due to pollen (ICD-10 - J30.1) 01/18/2024 Other allergic rhinitis (ICD-10 - J30.89) 10/18/2023 Other chronic allergic conjunctivitis (ICD-10 - H10.45) 01/18/2024 Other chronic allergic conjunctivitis (ICD-10 - H10.45) 12/21/2023 Other chronic allergic conjunctivitis (ICD-10 - H10.45) 12/07/2023 Other chronic allergic conjunctivitis (ICD-10 - H10.45) 11/22/2023 Other chronic allergic conjunctivitis (ICD-10 - H10.45) 11/08/2023 Other chronic allergic conjunctivitis (ICD-10 - H10.45) 11/02/2023 Other chronic allergic conjunctivitis (ICD-10 - H10.45) 10/25/2023 Other chronic allergic conjunctivitis (ICD-10 - H10.45) 10/14/2023 Allergic rhinitis due to animal (cat) (dog) hair and dander (ICD-10 - J30.81) 10/04/2023 Allergic rhinitis due to animal (cat) (dog) hair and dander (ICD-10 - J30.81) 09/27/2023 Allergic rhinitis due to animal (cat) (dog) hair and dander (ICD-10 - J30.81) 09/20/2023 Allergic rhinitis due to animal (cat) (dog) hair and dander (ICD-10 - J30.81) 09/15/2023 Allergic rhinitis due to pollen (ICD-10 - J30.1) Madonna clearly suffers from atopic disease based upon our skin testing today. Accordingly, we have introduced a new, aggressive medication regimen, discussed nasal washes and allergy-specific avoidance measures. Pretreating with Zyrtec, Famotidine and Singulair due to local reactions. She tolerated rapid desensitization well today without large local or systemic symptoms. She was instructed to carry her epinephrine auto-injector for 2 hours after leaving the office. Follow-up in 1 week to continue rapid desensitization. 09/06/2023 Allergic rhinitis due to animal (cat) (dog) hair and dander (ICD-10 - J30.81) 09/06/2023 Angioneurotic edema, initial encounter (ICD-10 - T78.3XXA) 09/06/2023 Other allergic rhinitis (ICD-10 - J30.89) 09/15/2023 Other allergic rhinitis (ICD-10 - J30.89) Follow allergen avoidance, meds and continue SCIT as an adjunctive treatment to current regimen 09/20/2023 Other allergic rhinitis (ICD-10 - J30.89) 09/27/2023 Other allergic rhinitis (ICD-10 - J30.89) 10/04/2023 Other allergic rhinitis (ICD-10 - J30.89) 10/14/2023 Other allergic rhinitis (ICD-10 - J30.89) 10/14/2023 Other chronic allergic conjunctivitis (ICD-10 - H10.45) 10/04/2023 Other chronic allergic conjunctivitis (ICD-10 - H10.45) 09/27/2023 Other chronic allergic conjunctivitis (ICD-10 - H10.45) 09/20/2023 Other chronic allergic conjunctivitis (ICD-10 - H10.45) 09/15/2023 Other chronic allergic conjunctivitis (ICD-10 - H10.45) Given ocular signs and symptoms I encouraged allergy avoidance measures and meds as above. If symptoms persist, consider adding additional medications including intraocular antihistamine/mast cell stabilizer, PRN and continue SCIT as an adjunctive measure 09/06/2023 Other chronic allergic conjunctivitis (ICD-10 - H10.45) 09/15/2023 Other Plan Of Treatment Pending Test Test Name Order Date -Respiratory Allergens w/Total IgE Area 8 03/31/2023 Insurance Providers Payer Name Payer Address Payer Phone Subscriber Number Group Number Insured Name Patient Relationship to Insured Coverage Start Date Coverage End Date [employer] [address] [address] [place] [address] [id number] Madonna Lam Self - patient is the insured Medical (General) History Medical History History ICD Code Attention-deficit hyperactivity disorder , unspecified type F90.9 Surgical History Surgery Date(Month/Year) 08/12/2018 Tonsillectomy
--- OUTSIDE RECORDS SUMMARY | 2024-09-03 09:59 | XMS_ITS | Clinical Summary ---
Author Organization [facility] Address [address] [place] [address] Phone Care Team Providers Care Robotics Technician Name Role Phone CHASE ZIEGLER MD Primary Care Provider [phone] WILLIAM HUDSON Unavailable [phone] Reason for Visit and Chief Complaint The Chief Complaint is: pt is here with a cough, willson, and sore throat that started today Problems Includes: Problems addressed during this encounter and other active Problems All Visits Onset Date Resolved Date Provider Condition S tatus Adhd, Predominantly Inattentive Type 04/01/2023 CHASE ZIEGLER MD Active Last Documented On 04/01/2023 4:23AM ; [facility] Note: Unchanged 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 04/01/2023 CHASE ZIEGLER MD Active Last Documented On 04/01/2023 4:23AM ; [facility] Note: Unchanged 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 04/17/2018 CHASE ZIEGLER MD Active Last Documented On 04/17/2018 10:19PM ; [facility] Note: Unchanged Opioid Dependence in Remission 04/17/2018 CHASE ZIEGLER MD Active Last Documented On 04/17/2018 10:25PM ; [facility] Note: Unchanged - Clean since 08-06-13 rodriguez boxone therapy Opioid Dependence 09/18/2013 CHASE ZIEGLER MD Active Last Documented On 04/17/2018 10:16PM ; [facility] Note: Clean since 08-06-13 and on suboxon e therapy Reported Family History of Cancer 12/04/2011 WEN RODRIGUEZ-BC Active Last Documented On 12/04/2011 10:13AM ; [facility] Note: mother - kidney cancer Plan of Treatment - Return to the clinic if condition worsens or new symptoms arise - Last Documented On 11/24/2022 4:01PM ; [facility] - Follow-up visit as needed with an office visit if symptoms persist or worsen - Last Documented On 11/24/2022 4:01PM ; [facility] - Patient to call if problem develops - Last Documented On 11/24/2022 4:01PM ; [facility] Instructions to patient Go to the emergency room if condition worsens Last Documented On 3 3:59PM ; [facility] Watch for signs/symptoms of infection Last Documented On 3 3:59PM ; [facility] Watch for signs/symptoms of infection, return to the clinic if seen Last Documented On 3 3:59PM ; [facility] Assessments Includes: Assessments from this encounter Findings - Group A streptococcus: B hemolytic pharyngitis - Last Documented On 11/24/2022 4:01PM ; [facility] Instructions Includes: Instructions from this encounter Instructions to patient Go to the emergency room if condition worsens Last Documented On 3 3:59PM ; [facility] Watch for signs/symptoms of infection Last Documented On 3 3:59PM ; [facility] Watch for signs/symptoms of infection, return to the clinic if seen Last Documented On 3 3:59PM ; [facility] Medical Equipment - Implanted Devices Includes: Current Devices No Medical Equipment Recorded Medications Includes: Medications discussed during this encounter and other current Medications Discontinued / Stopped on this date ELIZABETH BYRNES on 04/01/2022 Polytrim 90373-1.1 UNIT/ML-% Ophthalmic Solution Provider: ELIZABETH BYRNES Diagnosis: Other mucopurule nt conjunctivitis, bilateral Last Documented On 3 3:23PM By FAMILIA PARHAM ; [facility] New / Renewed during this visit JAMIE FOWLER on 11/24/2022 Amoxicillin-Pot Clavulanate 875-125 MG Oral Tablet Provider: JAMIE FOWLER 10 day supply: 20 tablet, 0 refills Diagnosis: Streptococcal pharyngitis One tablet twice a day Pharmacy: [facility] , [facility], [id number] - Last Documented On 03/10/2023 2:42PM By Marylou PARHAM ; [facility] Current Medications (continue as prescribed) Adderall 30 MG Oral Tablet 12/18/2023 Provider: CHASE ZIEGLER MD Diagnosis: Attention-defici t hyperactivity disorder, unspecified type One tablet twice a day Last Documented On 12/18/2023 12:55PM By CHRIS ZIEGLER MD ; [facility] Kyleena 19.5 MG Intrauterine Intrauterine device 11/28 Provider: Diagnosis: Last Documented On 11/29/2023 9:47AM By Ángela Zheng ; [facility] Famotidine 20 MG Oral Tablet 11/10/2023 Provider: Diagnosis: Last Documented On 11/29/2023 9:50AM By Ángela Zheng ; [facility] Montelukast Sodium 10 MG Oral Tablet 09/08/2023 Prov ider: Diagnosis: Last Documented On 11/29/2023 9:51AM By Ángela Zheng ; [facility] ZyrTEC Allergy 10 MG Oral Tablet 03/10/2023 Provider : Diagnosis: Last Documented On 03/10/2023 2:42PM By Marylou PARHAM ; [facility] EpiPen 2-Basil 0.3 MG/0.3ML Injection Solution Auto-inje ctor 03/10/2023 Provider: Diagnosis: Last Documented On 03/10/2023 2:44PM By Marylou PARHAM ; [facility] Medications Administered Includes: Administered Medications from this encounter No Administered Medications Recorded Vital Signs Includes: Vital Signs from this encounter Vital Name 11/24/2022 03:22P Blood Pressure Standing (mmHg) 122/70 Pulse Rate-Standing (bpm) 93 Temp-Oral (F) 98.8 Height (in) 67 Weight (lb) 263 Body Mass Index 41.2 Body Surface Area 2.3 Oxygen Saturation (%) 98 Last Documented: On 11/24/2022 3:23PM ; [facility] Results Includes: Results discussed during this encounter Group A strep [facility] Ordered by JAMIE FOWLER on Collected: Reported: 11/24/2022 15:26 Last Documented On 3 4:01PM ; [facility] Reviewed by JAMIE WILLIS [facility] on 11/24/2022; All test results are final unless otherwise noted. Rapid Strep pos A (Abnormal) Last Documented On 3 3:26PM ; [facility] LOT # AND EXP. DATE [id number] N (Normal) Last Documented On 3 3:26PM ; [facility] INT. QC ACCEPTABLE? yes N (Normal) Last Documented On 3 3:26PM ; [facility] History of Present Illness Includes: History of [...] 04/01/2022 Last Documented On 3 3:22PM ; [facility] Current nonsmoker 01/21/2021 Last Documented On 3 3:22PM ; [facility] Social history unchanged 05/02/2017 Last Documented On 3 3:22PM ; [facility] Sexually active has not been s.a since N ovember of 201209/18/2013 Last Documented On 3 3:22PM ; [facility] Confucianism affiliation denominational 11/22/2009 Last Documented On 3 3:22PM ; [facility] Sexual history : painful intercourse Last Documented On 3 3:22PM ; [facility] Single 11/22/2009 Last Documented On 3 3:22PM ; [facility] The racial background white 11/22/2009 Last Documented On 3 3:22PM ; [facility] Non-smoker 11/22/2009 Last Documented On 3 3:22PM ; [facility] Smoking Status Unknown Procedures and Surgical History Includes: Procedures from this encounter Procedures Code Diagnosis Performing Provider Service L ocation Service Date continue current medication Last Documented On 3 3:59PM ; [facility] the options include close observation Last Documented On 3 3:59PM ; [facility] watch for signs/symptoms of infection Last Documented On 3 3:59PM ; [facility] watch for signs/symptoms of infection, r eturn to the clinic if seen Last Documented On 3 3:59PM ; [facility] Pt / family were [...] worsens Last Documented On 3 3:59PM ; [facility] Pt to use OTC fever/pain product as need ed per product instruction.~ Last Documented On 3 3:59PM ; [facility] plan of care reviewed and agreed to by t he patient Last Documented On 3 3:59PM ; [facility] review of medications documented 1160F Last Documented On 3 3:23PM ; [facility] Increase fluids Last Documented On 3 3:59PM ; [facility] Clinical summary provided to patient Last Documented On 3 3:59PM ; [facility] Surgical History Last Updated Tonsillectomy 12/07/2011 Last Documented On 3 3:22PM ; [facility] Medical History Includes: Medical History addressed during this encounter Description Last Updated Taking OTC pain medication / fever. Usin g Motrin 11/24/2022 Last Documented On 3 4:01PM ; [facility] Taking OTC pain medication /fever. Using Tylenol 11/24/2022 Last Documented On 3 4:01PM ; [facility] Date COVID symptoms started: January 10 0 01/21/2021 Last Documented On 3 3:22PM ; [facility] LMP: on Nexplanon 04/17/2018 Last Documented On 3 3:22PM ; [facility] Taking OTC allergy medication mucinex dm 06/22/2017 Last Documented On 3 3:22PM ; [facility] Taking OTC medications 06/22/2017 Last Documented On 3 3:22PM ; [facility] No recent change in medical history 02/2017 Last Documented On 3 3:22PM ; [facility] TONSILS 5TH GRADE ~ 10/02/2016 Last Documented On 3 3:22PM ; [facility] 0 11/22/2009 Last Documented On 3 3:22PM ; [facility] Family History Includes: Family History addressed during this encounter Description Last Updated Family history unchanged 05/02/2017 Last Documented On 3 3:22PM ; [facility] Maternal history of family history of ca ncer KIDNEY 10/02/2016 Last Documented On 3 3:22PM ; [facility] Maternal history of family history of ki dney disease 10/02/2016 Last Documented On 3 3:22PM ; [facility] Maternal history of cancer kidntey 10/02 Last Documented On 3 3:22PM ; [facility] Family history of diabetes mellitus mate rnal grandparents ~mother 12/07/2011 Last Documented On 3 3:22PM ; [facility] Family history of uterine cancer MGM Last Documented On 3 3:22PM ; [facility] Family history of Cancer 11/22/2009 Last Documented On 3 3:22PM ; [facility] Family medical history of high blood pre ssure 11/22/2009 Last Documented On 3 3:22PM ; [facility] Family medical history of High Cholester ol 11/22/2009 Last Documented On 3 3:22PM ; [facility] Family history of malignant female breas t neoplasm maternal grandma 11/22/2009 Last Documented On 3 3:22PM ; [facility] Family history of malignant neoplasm of the ovary mother et Aunt 11/22/2009 Last Documented On 3 3:22PM ; [facility] Review of Systems Includes: Review of [...] COVID SICK VISIT- ESTABLISHED PATIENT JAMIE WILLIS [facility] 11/25/19 23 3:14PM 3:33PM Pharyngitis Streptococcus, Group A: Beta Hemolytic Insurance Includes: Active Insurance Policies Plan Name Member ID Group # Subscriber Relationship Effect kayleigh Dates 1 - [employer] [id number] ESTER CHEN Self Clinical Notes Includes: Clinical Notes from this encounter * Progress note Date Encounter Last Documented by 11/24/2022 COVID SICK VISIT- ESTABLISHED JACKY CHU Last documented on 11/24/2022; 4:01 PM, JAMIE WILLIS [facility]; [facility] Active Problems & Conditions - Attention Deficit [...] OTC pain medication / fever. Using Motrin, tvrm-gvi-jgyugoy /fever. Using Tylenol, and vjih-eln-xlsnrtd allergy medication mucinex dm. Exposure: Date COVID symptoms started: January 10. : 0. TONSILS 5TH GRADE . Social History Racial background white and social history unchanged. Tobacco use: Current nonsmoker and non-smoker. Confucianism Status: Confucianism affiliation denominational. Marital: Single. Sexual: Sexual history: painful intercourse [...] pos Abnormal LOT # AND EXP. DATE [id number] Normal INT. QC ACCEPTABLE? yes Normal Assessment [...] Drink 8-8oz glasses of water a day. Ransom teeth twice a day Get a new [...]
--- OUTSIDE RECORDS SUMMARY | 2024-09-03 09:59 | XMS_ITS ---
Care Plan - [facility] Created on: September 03, 2024 ESTER CHEN : 1990 Sex: Female Author Organization [facility] Address [address] [place] [address] Phone Care Team Providers Care Lime Mixer Name Role Phone CHASE ZIEGLER MD Primary Care Provider [phone] WILLIAM HUDSON Unavailable [phone]
--- OUTSIDE RECORDS SUMMARY | 2024-09-03 09:59 | XMS_ITS ---
Author Organization [facility] Address [address] [place] [address] Phone Care Team Providers Care Chemical Operator Name Role Phone CHASE OSULLIVAN MD Primary Care Provider [phone] WILLIAM HUDSON Unavailable [phone] Problems Includes: Active, inactive, and resolved Problems All Visits Onset Date Resolved Date Provider Condition S tatus Adhd, Predominantly Inattentive Type 04/01/2023 CHASE OSULLIVAN MD Active Last Documented On 04/01/2023 4:23AM ; [facility] Note: Unchanged 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 04/01/2023 CHASE OSULLIVAN MD Active Last Documented On 04/01/2023 4:23AM ; [facility] Note: Unchanged 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 04/17/2018 CHASE OSULLIVAN MD Active Last Documented On 04/17/2018 10:19PM ; [facility] Note: Unchanged Opioid Dependence in Remission 04/17/2018 CHASE OSULLIVAN MD Active Last Documented On 04/17/2018 10:25PM ; [facility] Note: Unchanged - Clean since 08-06-13 rodriguez boxone therapy Opioid Dependence 09/18/2013 CHASE OSULLIVAN MD Active Last Documented On 04/17/2018 10:16PM ; [facility] Note: Clean since 08-06-13 and on suboxon e therapy Reported Family History of Cancer 12/04/2011 [facility]- Active Last Documented On 12/04/2011 10:13AM ; [facility] Note: mother - kidney cancer Plan of Treatment Findings Encounter Date Ordered follow-up visit as n eeded with an office visit if symptoms persist or worsen COVID SICK VISIT- ESTABLISHED PATIENT with JAMIE GARCIAP-BC 11/24/2022 Last Documented On 3 4:01PM ; [facility] Ordered patient to call if angus anand develops COVID SICK VISIT- ESTABLISHED PATIENT with JAMIE WILLIS [employer]-BC 11/24/2022 Last Documented On 3 4:01PM ; [facility] Ordered return to the clinic if condition worsens or new symptoms arise COVID SICK VISIT- ESTABLISHED PATIENT with JAMIE WILLIS [employer] ANIMAL-BC 11/24/2022 Last Documented On 3 4:01PM ; [facility] Ordered patient will call fo r appointment as needed COVID SICK VISIT- ESTABLISHED PATIENT with SUDARSHAN AVILA [employer]-C 01/21/2021 Last Documented On 1 9:50AM ; [facility] Ordered return to the clinic if condition worsens or new symptoms arise COVID SICK VISIT- ESTABLISHED PATIENT with SUDARSHAN AVILA [employer] [employer]AL-C 01/21/2021 Last Documented On 1 9:50AM ; [facility] The options include close observation CO VID SICK VISIT- ESTABLISHED PATIENT with SUDARSHAN AVILA [employer] [employer]-C 01/21/2021 Last Documented On 1 9:50AM ; [facility] Pt to use prescription as or dered. Purpose of and use of medication discussed. 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 Plan discussed and patient/parent/caregiver states understanding SICK VISIT with NESTOR BROWNING PA-C 09/06/2018 Last Documented On 9 11:13AM ; [facility] Ordered follow-up visit as n eeded with an office visit. Push fluids, rest, hot steamy showers, vicks. Alternate tylenol/ibuprofen every 3 hrs for fever/pain. Salt water gargles, throat lozenges, Chloroseptic spray. Change toothbrush after 48 hrs on antibiotic. Claritin/Zyrtec/Benadryl as needed for runny nose/drainage. Call sooner if symptoms worsen/persist beyond 3-4 days SICK VISIT with NESTOR BROWNING PA-C 09/06/2018 Last Documented On 9 11:13AM ; [facility] Ordered patient will call fo r appointment as needed SICK VISIT with CHAYA ROSS [facility] 08/27/2017 Last Documented On 8 9:30AM ; [facility] Ordered return to the clinic if condition worsens or new symptoms arise SICK VISIT with CHAYA ROSS [facility] 08/27/2017 Last Documented On 8 9:30AM ; [facility] Ordered Clinical summary pro vided to patient . Plan discussed and patient/parent/caregiver states understanding SICK VISIT with NESTOR BROWNING PA-C 06/22/2017 Last Documented On 7 1:16PM ; [facility] Ordered follow-up visit as n eeded with an office visit. [place] diet--bananas, rice, applesauce, toast, yogurt x 2 days. Fluids--1TBS gatoraide/poweraide every 10 min. OTC tylenol/ibuprofen as needed for fever/pain. OTC sinus pills--dayquil/nyquil as needed. Call sooner if symptoms worsen/persist beyond 4 days SICK VISIT with NESTOR BROWNING PA-C 06/22/2017 Last Documented On 7 1:16PM ; [facility] CPM 6 MONTH CHECK with CHASE RAMIREZ MD 04/05/2017 Last Documented On 7 3:56AM ; [facility] Ordered weight loss diet NEW PATIENT VISIT with CHASE OSULLIVAN MD 10/02/2016 Last Documented On 7 7:56AM ; [facility] PLAN [Use for s.o.a.p. note free text] N EW PATIENT VISIT with CHASE OSULLIVAN MD 10/02/2016 Last Documented On 7 7:56AM ; [facility] Ordered follow-up visit 1 ye ar or as needed RN OCCUPATIONAL EXAM with [facility]- 12/05/2010 Last Documented On 1 11:13AM ; [facility] Ordered follow-up visit 1 ye ar or as needed NEW RN OCCUPATIONAL EXAM with [facility]- 11/22/2009 Last Documented On 0 9:46AM ; [facility] Referrals To Diagnosis Other Note: Dr. Lavern Yin - [facility], [place] - evaluate constipation and lower extremity edema Last Documented On 4 2:14PM ; [facility] Instructions to patient Go to the emergency room if condition worsens Last Documented On 3 3:59PM ; [facility] Watch for signs/symptoms of infection Last Documented On 3 3:59PM ; [facility] Watch for signs/symptoms of infection, return to the clinic if seen Last Documented On 3 3:59PM ; [facility] Intervention and counseling on cessation of tobacco use Last Documented On 1 8:51AM ; [facility] Recommend diet and exercise at least 30 min three times per week Last Documented On 9 11:07PM ; [facility] Lose weight Last Documented On 7 7:56AM ; [facility] Lose weight Last Documented On 4 3:53PM ; [facility] Safe sex counseling Last Documented On 4 3:53PM ; [facility] Instructions for patient : B reast Self Exam discussed Last Documented On 3 4:00PM ; [facility] Lose weight Last Documented On 3 4:00PM ; [facility] Gardasil information given a nd series encouraged Last Documented On 3 4:00PM ; [facility] Safe sex counseling Last Documented On 3 4:00PM ; [facility] Instructions for patient : K eep the area around the vulva dry. Allow the area to have exposure to air. Avoid irritants such as fabric softeners and perfumed soaps.~ Last Documented On 3 8:38AM ; [facility] Instructions for patient : p atient is to keep a menstrual diary to help with further evaluation and treatment Last Documented On 2 4:02PM ; [facility] Instructions for patient : K eep the area around the vulva dry. Allow the area to have exposure to air. Avoid irritants such as fabric softeners and perfumed soaps.~ Last Documented On 2 4:34PM ; [facility] Advised d/c scented bath pro ducts Last Documented On 2 4:34PM ; [facility] Instructions For Patient: pe lvic rest until test results back Last Documented On 2 4:36PM ; [facility] Instructions for patient : B reast Self Exam discussed Last Documented On 2 11:12AM ; [facility] Lose weight Last Documented On 2 11:13AM ; [facility] Gard[place] information given a nd series encouraged Last Documented On 2 11:13AM ; [facility] Safe sex counseling Last Documented On 2 11:13AM ; [facility] Instructions for patient : K eep the area around the vulva dry. Allow the area to have exposure to air. Avoid irritants such as fabric softeners and perfumed soaps.~ Last Documented On 1 2:54PM ; [facility] Advised d/c scented bath pro ducts Last Documented On 1 2:54PM ; [facility] Instructions For Patient: pe lvic rest until test results back Last Documented On 1 2:39PM ; [facility] Instructions for patient : K eep the area around the vulva dry. Allow the area to have exposure to air. Avoid irritants such as fabric softeners and perfumed soaps.~ Last Documented On 1 1:04PM ; [facility] Advised d/c scented bath pro ducts Last Documented On 1 1:04PM ; [facility] Instructions for patient : B reast Self Exam discussed Last Documented On 1 10:57AM ; [facility] Lose weight Last Documented On 1 10:58AM ; [facility] Gard[place] information given a nd series encouraged Last Documented On 1 10:58AM ; [facility] Safe sex counseling Last Documented On 1 10:58AM ; [facility] Instructions for patient : B reast Self Exam discussed Last Documented On 0 9:25AM ; [facility] Lose weight Last Documented On 0 9:28AM ; [facility] Gardasil information given a nd series encouraged Last Documented On 0 9:25AM ; [facility] Education and Decision Aids were provided during visit for: Patient Education: weight be aring exercise Last Documented On 4 3:53PM ; [facility] Patient Education: Daily ervin cium and vitamin D Last Documented On 3 4:00PM ; [facility] Patient Education: weight be aring exercise Last Documented On 3 4:00PM ; [facility] Patient education :VAGINAL H YGIENE REVIEW Last Documented On 3 8:38AM ; [facility] Patient counseling : STD pre vention. I discussed with the patient that condoms can reduce the chance of getting an STD but not eliminate it. Increased exposure from multiple sex partners also discussed Last Documented On 2 4:36PM ; [facility] Bacterial Vaginosis Informat ion Sheet Given Last Documented On 2 4:34PM ; [facility] Patient Education: Daily ervin cium and vitamin D Last Documented On 2 11:12AM ; [facility] Patient Education: weight be aring exercise Last Documented On 2 11:12AM ; [facility] control consent review ed and signed Last Documented On 2 11:13AM ; [facility] Patient counseling : STD pre vention. I discussed with the patient that condoms can reduce the chance of getting an STD but not eliminate it. Increased exposure from multiple sex partners also discussed Last Documented On 1 2:39PM ; [facility] Candidiasis Vulvovaginitis I nformation Sheet Given Last Documented On 1 2:54PM ; [facility] Patient Education: Daily ervin cium and vitamin D Last Documented On 1 10:58AM ; [facility] Patient Education: weight be aring exercise Last Documented On 1 10:58AM ; [facility] control consent review ed and signed Last Documented On 1 11:04AM ; [facility] Patient Education: weight be aring exercise Last Documented On 0 9:28AM ; [facility] Assessments Includes: Assessments for all patient encounters Findings Encounter Date ADHD, predominantly inattentive type CHECK UP wi th CHASE OSULLIVAN MD 11/29/2023 Last Documented On 4 4:38AM ; [facility] Allergic rhinitis due to pollen CHECK UP with SAVANNAH OSULLIVAN MD 11/29/2023 Last Documented On 4 4:38AM ; [facility] Opioid dependence in remission CHECK UP with CHRIS OSULLIVAN MD 11/29/2023 Last Documented On 4 4:38AM ; [facility] Routine adult history and ph ysical (18-64 yrs) without abnormal findings CHECK UP with CHASE OSULLIVAN MD 11/29/2023 Last Documented On 4 4:38AM ; [facility] Abnormal weight gain NEW PATIENT EXAM - ADULT wi th CHASE OSULLIVAN MD 03/10/2023 Last Documented On 3 4:24AM ; [facility] Attention deficit disorder w ithout hyperactivity, predominantly inattentive type NEW PATIENT EXAM - ADULT with CHASE OSULLIVAN MD 03/10/2023 Last Documented On 3 4:24AM ; [facility] Malaise and fatigue NEW PATIENT EXAM - ADULT wit h CHASE OSULLIVAN MD 03/10/2023 Last Documented On 3 4:24AM ; [facility] Routine adult history and ph ysical (18-64 yrs) without abnormal findings NEW PATIENT EXAM - ADULT with CHASE OSULLIVAN MD 03/10/2023 Last Documented On 3 4:24AM ; [facility] Group A streptococcus: B hem olytic pharyngitis COVID SICK VISIT- ESTABLISHED PATIENT with JAMIE WILLIS [employer]-BC 11/24/2022 Last Documented On 3 4:01PM ; [facility] Acute conjunctivitis WALK IN PATIENT - E STABLISHED PT with ELIZABETH Glover BOWERS [employer] ANIMAL-C 04/01/2022 Last Documented On 2 10:26AM ; [facility] Acute pharyngitis COVID SICK VISIT- ES TABLISHED PATIENT with SUDARSHAN AVILA [employer]IMAL-C 01/21/2021 Last Documented On 1 9:50AM ; [facility] Acute sinusitis COVID SICK VISIT- ES TABLISHED PATIENT with SUDARSHAN AVILA [employer] ANIMAL-C 01/21/2021 Last Documented On 1 9:50AM ; [facility] Assessment of cough COVID SICK VISIT- ES TABLISHED PATIENT with SUDARSHAN AVILA [employer] ANIMAL-C 01/21/2021 Last Documented On 1 9:50AM ; [facility] Attention deficit disorder w ithout hyperactivity, predominantly inattentive type 1 YR CHECK-UP with CHASE OSULLIVAN MD 04/14/2019 Last Documented On 9 11:17PM ; [facility] Dysfunctional uterine bleeding 1 YR CHECK-UP wit mary carmen OSULLIVAN MD 04/14/2019 Last Documented On 9 11:17PM ; [facility] Menorrhagia 1 YR CHECK-UP with CHASE RAMIREZ MD 04/14/2019 Last Documented On 9 11:17PM ; [facility] Routine adult history and ph ysical (18-64 yrs) without abnormal findings 1 YR CHECK-UP with CHASE OSULLIVAN MD 04/14/2019 Last Documented On 9 11:17PM ; [facility] Acute pharyngitis SICK VISIT with NESTOR RAMIREZ PA-C 09/06/2018 Last Documented On 9 11:13AM ; [facility] Assessment of fever SICK VISIT with NESTOR FISCHER PA-C 09/06/2018 Last Documented On 9 11:13AM ; [facility] Conjunctivitis in the left eye SICK VISIT with Red BROWNING PA-C 09/06/2018 Last Documented On 9 11:13AM ; [facility] A streptococcus: B hem olytic pharyngitis SICK VISIT with NESTOR BROWNING PA-C 09/06/2018 Last Documented On 9 11:13AM ; [facility] Attention deficit disorder w ithout hyperactivity, predominantly inattentive type 1 YR CHECK-UP with CHASE OSULLIVAN MD 04/06/2018 Last Documented On 8 10:25PM ; [facility] Normal 1 YR CHECK-UP with CHASE BOWERS MD 04/06/2018 Last Documented On 8 10:25PM ; [facility] Opioid dependence in [facility] on SINCE 08/06/13 1 YR CHECK-UP with CHASE OSULLIVAN MD 04/06/2018 Last Documented On 8 10:25PM ; [facility] Routine adult history and ph ysical (18-64 yrs) without abnormal findings 1 YR CHECK-UP with CHASE OSULLIVAN MD 04/06/2018 Last Documented On 8 10:25PM ; [facility] Viral gastroenteritis SICK VISIT with CHAYA ROSS [facility]- 08/27/2017 Last Documented On 8 9:30AM ; [facility] Viral syndrome SICK VISIT with CHAYA BUSTAMANTE [facility]- [facility]WORK[facility] ANIMAL-BC 08/27/2017 Last Documented On 8 9:30AM ; [facility] Upper respiratory infection SICK VISIT with JULIANNA BROWNING PA-C 06/22/2017 Last Documented On 7 1:16PM ; [facility] Viral infection SICK VISIT with NESTOR BROWNING PA-C 06/22/2017 Last Documented On 7 1:16PM ; [facility] Attention deficit disorder w ithout hyperactivity 6 MONTH CHECK with CHASE OSULLIVAN MD 04/05/2017 Last Documented On 7 3:56AM ; [facility] Attention deficit disorder w ithout hyperactivity, predominantly inattentive type 6 MONTH CHECK with CHASE OSULLIVAN MD 04/05/2017 Last Documented On 7 3:56AM ; [facility] Attention deficit disorder w ithout hyperactivity NEW PATIENT VISIT with CHASE OSULLIVAN MD 10/02/2016 Last Documented On 7 7:56AM ; [facility] Routine adult history and ph ysical (18-64 yrs) without abnormal findings NEW PATIENT VISIT with CHASE OSULLIVAN MD 10/02/2016 Last Documented On 7 7:56AM ; [facility] NORMAL FEMALE EXAM RN OCCUPATIONAL EXAM with WEN Meier [facility]- 12/07/2012 Last Documented On 3 4:15PM ; [facility] Cervicitis PROBLEM VISIT with IVANIA GARCIA RN [facility] 10/20/2012 Last Documented On 3 8:41AM ; [facility] Vaginal candidiasis PROBLEM VISIT with IVANIA HUMPHREY RN [facility] 10/20/2012 Last Documented On 3 8:41AM ; [facility] Dysmenorrhea PROBLEM VISIT with [facility]- 07/13/2012 Last Documented On 2 4:40PM ; [facility] Vulvovaginitis PROBLEM VISIT with [facility]- 07/13/2012 Last Documented On 2 4:40PM ; [facility] NORMAL FEMALE EXAM RN OCCUPATIONAL EXAM with WEN Meier [facility]- 12/07/2011 Last Documented On 2 11:41AM ; [facility] Doris albicans vulvovaginitis PROBLEM VISIT wi [facility]- 06/24/2011 Last Documented On 1 3:39PM ; [facility] Normal routine history and physical RN OCCUPATIONAL EXAM wit h [facility]- 12/05/2010 Last Documented On 1 11:13AM ; [facility] Routine pelvic exam RN OCCUPATIONAL EXAM with [facility]- 12/05/2010 Last Documented On 1 11:13AM ; [facility] Contraceptive surveillance ANNUAL WELL W OMEN EXAM with [facility]- 11/10/2010 Last Documented On 1 11:06AM ; [facility] Normal routine history and physical BOO AL WELL WOMEN EXAM with WENLETY [facility]- 11/10/2010 Last Documented On 1 11:06AM ; [facility] Normal routine history and physical NEW RN OCCUPATIONAL EXAM with [facility]- 11/22/2009 Last Documented On 0 9:46AM ; [facility] Routine pelvic exam NEW RN OCCUPATIONAL EXAM with [facility]AF[facility]- 11/22/2009 Last Documented On 0 9:46AM ; [facility] Instructions Includes: Instructions for all patient encounters Instructions to patient Go to the emergency room if condition worsens Last Documented On 3 3:59PM ; [facility] Watch for signs/symptoms of infection Last Documented On 3 3:59PM ; [facility] Watch for signs/symptoms of infection, return to the clinic if seen Last Documented On 3 3:59PM ; [facility] Intervention and counseling on cessation of tobacco use Last Documented On 1 8:51AM ; [facility] Recommend diet and exercise at least 30 min three times per week Last Documented On 9 11:07PM ; [facility] Lose weight Last Documented On 7 7:56AM ; [facility] Lose weight Last Documented On 4 3:53PM ; [facility] Safe sex counseling Last Documented On 4 3:53PM ; [facility] Instructions for patient : B reast Self Exam discussed Last Documented On 3 4:00PM ; [facility] Lose weight Last Documented On 3 4:00PM ; [facility] Gardasil information given a nd series encouraged Last Documented On 3 4:00PM ; [facility] Safe sex counseling Last Documented On 3 4:00PM ; [facility] Instructions for patient : K eep the area around the vulva dry. Allow the area to have exposure to air. Avoid irritants such as fabric softeners and perfumed soaps.~ Last Documented On 3 8:38AM ; [facility] Instructions for patient : p atient is to keep a menstrual diary to help with further evaluation and treatment Last Documented On 2 4:02PM ; [facility] Instructions for patient : K eep the area around the vulva dry. Allow the area to have exposure to air. Avoid irritants such as fabric softeners and perfumed soaps.~ Last Documented On 2 4:34PM ; [facility] Advised d/c scented bath pro ducts Last Documented On 2 4:34PM ; [facility] Instructions For Patient: pe lvic rest until test results back Last Documented On 2 4:36PM ; [facility] Instructions for patient : B reast Self Exam discussed Last Documented On 2 11:12AM ; [facility] Lose weight Last Documented On 2 11:13AM ; [facility] Gard[place] information given a nd series encouraged Last Documented On 2 11:13AM ; [facility] Safe sex counseling Last Documented On 2 11:13AM ; [facility] Instructions for patient : K eep the area around the vulva dry. Allow the area to have exposure to air. Avoid irritants such as fabric softeners and perfumed soaps.~ Last Documented On 1 2:54PM ; [facility] Advised d/c scented bath pro ducts Last Documented On 1 2:54PM ; [facility] Instructions For Patient: pe lvic rest until test results back Last Documented On 1 2:39PM ; [facility] Instructions for patient : K eep the area around the vulva dry. Allow the area to have exposure to air. Avoid irritants such as fabric softeners and perfumed soaps.~ Last Documented On 1 1:04PM ; [facility] Advised d/c scented bath pro ducts Last Documented On 1 1:04PM ; [facility] Instructions for patient : B reast Self Exam discussed Last Documented On 1 10:57AM ; [facility] Lose weight Last Documented On 1 10:58AM ; [facility] Gard[place] information given a nd series encouraged Last Documented On 1 10:58AM ; [facility] Safe sex counseling Last Documented On 1 10:58AM ; [facility] Instructions for patient : B reast Self Exam discussed Last Documented On 0 9:25AM ; [facility] Lose weight Last Documented On 0 9:28AM ; [facility] Gardasil information given a nd series encouraged Last Documented On 0 9:25AM ; [facility] Education and Decision Aids were provided during visit for: Patient Education: weight be aring exercise Last Documented On 4 3:53PM ; [facility] Patient Education: Daily ervin cium and vitamin D Last Documented On 3 4:00PM ; [facility] Patient Education: weight be aring exercise Last Documented On 3 4:00PM ; [facility] Patient education :VAGINAL H YGIENE REVIEW Last Documented On 3 8:38AM ; [facility] Patient counseling : STD pre vention. I discussed with the patient that condoms can reduce the chance of getting an STD but not eliminate it. Increased exposure from multiple sex partners also discussed Last Documented On 2 4:36PM ; [facility] Bacterial Vaginosis Informat ion Sheet Given Last Documented On 2 4:34PM ; [facility] Patient Education: Daily ervin cium and vitamin D Last Documented On 2 11:12AM ; [facility] Patient Education: weight be aring exercise Last Documented On 2 11:12AM ; [facility] control consent review ed and signed Last Documented On 2 11:13AM ; [facility] Patient counseling : STD pre vention. I discussed with the patient that condoms can reduce the chance of getting an STD but not eliminate it. Increased exposure from multiple sex partners also discussed Last Documented On 1 2:39PM ; [facility] Candidiasis Vulvovaginitis I nformation Sheet Given Last Documented On 1 2:54PM ; [facility] Patient Education: Daily ervin cium and vitamin D Last Documented On 1 10:58AM ; [facility] Patient Education: weight be aring exercise Last Documented On 1 10:58AM ; [facility] control consent review ed and signed Last Documented On 1 11:04AM ; [facility] Patient Education: weight be aring exercise Last Documented On 0 9:28AM ; [facility] Medical Equipment - Implanted Devices Includes: Current and historical Devices No Medical Equipment Recorded Medications Includes: Current and historical Medications Current Medications (continue as prescribed) Adderall 30 MG Oral Tablet 12/18/2023 Provider: CHASE OSULLIVAN MD Diagnosis: Attention-defici t hyperactivity disorder, unspecified type One tablet twice a day Last Documented On 12/18/2023 12:55PM By CHRIS OSULLIVAN MD ; [facility] Kyleena 19.5 MG Intrauterine Intrauterine device 11/28 Provider: Diagnosis: Last Documented On 11/29/2023 9:47AM By Ángela Zheng ; [facility] Famotidine 20 MG Oral Tablet 11/10/2023 Provider: Diagnosis: Last Documented On 11/29/2023 9:50AM By Ángela Zheng ; [facility] Montelukast Sodium 10 MG Oral Tablet 09/08/2023 Prov ider: Diagnosis: Last Documented On 11/29/2023 9:51AM By Ángela Zheng ; [facility] ZyrTEC Allergy 10 MG Oral Tablet 03/10/2023 Provider : Diagnosis: Last Documented On 03/10/2023 2:42PM By Marylou PARHAM ; [facility] EpiPen 2-Basil 0.3 MG/0.3ML Injection Solution Auto-inje ctor 03/10/2023 Provider: Diagnosis: Last Documented On 03/10/2023 2:44PM By Marylou PARHAM ; [facility] Past Medications on file Adderall 30 MG Oral Tablet 11/18/2023 - 12/18/2023 Provider: CHASE OSULLIVAN MD Diagnosis: Attention-defici t hyperactivity disorder, unspecified type One tablet twice a day Last Documented On 12/18/2023 12:43PM By CHRIS OSULLIVAN MD ; [facility] Wegovy 1 MG/0.5ML Subcutaneous Solution Auto-injector 11/08/2023 - 11/29/2023 Provider: CHASE OSULLIVAN MD Diagnosis: Abnormal weight gain inject 1mg once weekly Last Documented On 11/29/2023 9:49AM By Ángela Zheng ; [facility] Adderall 30 MG Oral Tablet 10/12/2023 - 11/18/2023 Provider: CHASE OSULLIVAN MD Diagnosis: Attention-defici t hyperactivity disorder, unspecified type One tablet twice a day Last Documented On 11/18/2023 1:44AM By CHRIS OSULLIVAN MD ; [facility] Adderall 30 MG Oral Tablet 09/15/2023 - 10/12/2023 Provider: JAMIL BOOKER [facility] Diagnosis: Attention-defici t hyperactivity disorder, unspecified type One tablet twice a day Last Documented On 10/12/2023 1:00AM By CHRIS OSULLIVAN MD ; [facility] Adderall 30 MG Oral Tablet 08/12/2023 - 09/15/2023 Provider: CHASE OSULLIVAN MD Diagnosis: Attention-defici t hyperactivity disorder, unspecified type One tablet twice a day Last Documented On 10:26AM By Jamil Booker [facility] ; [facility] Adderall 30 MG Oral Tablet 07/12/2023 - 08/12/2023 Provider: CHASE OSULLIVAN MD Diagnosis: Attention-defici t hyperactivity disorder, unspecified type One tablet twice a day Last Documented On 08/12/2023 2:47AM By CHRIS OSULLIVAN MD ; [facility] Adderall 30 MG Oral Tablet 06/09/2023 - 07/12/2023 Provider: CHASE OSULLIVAN MD Diagnosis: Attention-defici t hyperactivity disorder, unspecified type One tablet twice a day Last Documented On 07/12/2023 8:21AM By CHRIS OSULLIVAN MD ; [facility] Adderall 30 MG Oral Tablet 05/13/2023 - 06/09/2023 Provider: CHASE OSULLIVAN MD Diagnosis: Attention-defici t hyperactivity disorder, unspecified type One tablet twice a day Last Documented On 06/09/2023 7:53AM By CHRIS OSULLIVAN MD ; [facility] Wegovy 0.25 MG/0.5ML Subcutaneous Solution Auto-injector 05/04/2023 - 11/04/2023 Provider: CHASE OSULLIVAN MD Diagnosis: Abnormal weight gain inject 0.5 ml subcutaneous o nce weekly for 4 weeks Last Documented On 11/04/2023 11:57PM By CHRIS OSULLIVAN MD ; [facility] Wegovy 1 MG/0.5ML Subcutaneous Solution Auto-injector 05/04/2023 - 11/08/2023 Provider: CHASE OSULLIVAN MD Diagnosis: Abnormal weight gain after titrating up with the other two doses- inject 1mg once weekly for 4 weeks Last Documented On 11/08/2023 9:56AM By CHRIS OSULLIVAN MD ; [facility] Wegovy 0.5 MG/0.5ML Subcutaneous Solution Auto-injector 05/04/2023 - 11/04/2023 Provider: CHASE OSULLIVAN MD Diagnosis: Abnormal weight gain second month dosing, inject 0.5 mg subcutaneous once weekly for 4 weeks Last Documented On 11/04/2023 11:57PM By CHRIS OSULLIVAN MD ; [facility] Wegovy 0.25 MG/0.5ML Subcutaneous Solution Auto-injector 04/16/2023 - 05/04/2023 Provider: CHASE OSULLIVAN MD Diagnosis: Abnormal weight gain inject 0.5 ml subcutaneous o nce weekly for 4 weeks Last Documented On 05/04/2023 8:37AM By Marylou PARHAM ; [facility] Wegovy 0.5 MG/0.5ML Subcutaneous Solution Auto-injector 04/16/2023 - 05/04/2023 Provider: CHASE OSULLIVAN MD Diagnosis: Abnormal weight gain second month dosing, inject 0.5 mg subcutaneous once weekly for 4 weeks Last Documented On 05/04/2023 8:37AM By Marylou PARHAM ; [facility] Wegovy 1 MG/0.5ML Subcutaneous Solution Auto-injector 04/16/2023 - 05/04/2023 Provider: CHASE OSLULIVAN MD Diagnosis: Abnormal weight gain after titrating up with the other two doses- inject 1mg once weekly for 4 weeks Last Documented On 05/04/2023 8:37AM By Marylou PARHAM ; [facility] Adderall 30 MG Oral Tablet 04/11/2023 - 05/13/2023 Provider: CHASE OSULLIVAN MD Diagnosis: Attention-defici t hyperactivity disorder, unspecified type One tablet twice a day Last Documented On 05/13/2023 3:16AM By CHRIS OSULLIVAN MD ; [facility] Adderall 30 MG Oral Tablet 03/10/2023 - 04/11/2023 Provider: CHASE OSULLIVAN MD Diagnosis: Attention-defici t hyperactivity disorder, unspecified type One tablet twice a day Last Documented On 04/11/2023 9:39PM By CHRIS OSULLIVAN MD ; [facility] Adderall 20 MG Oral Tablet 01/17/2023 - 03/10/2023 Pro vider: CHASE OSULLIVAN MD Diagnosis: 1 tab by mouth up to three a s needed.NEEDS TO HAVE A CHECKUP BEFORE MORE REFILLS Last Documented On 03/10/2023 3:04PM By Marylou PARHAM ; [facility] Adderall 20 MG Oral Tablet 12/15/2022 - 01/17/2023 Pro vider: CHASE OSULLIVAN MD Diagnosis: 1 tab by mouth up to three as needed. Last Documented On 01/17/2023 2:56AM By CHRIS OSULLIVAN MD ; [facility] Amoxicillin-Pot Clavulanate 875-125 MG Oral Tablet 11/24/2022 - 03/10/2023 Provider: JAMIE WILLIS [facility] Diagnosis: Streptococcal pharyngitis One tablet twice a day Last Documented On 03/10/2023 2:42PM By Marylou PARHAM ; [facility] Adderall 20 MG Oral Tablet 11/16/2022 - 12/15/2022 Pro vider: CHASE OSULLIVAN MD Diagnosis: 1 tab by mouth up to three as needed. Last Documented On 12/15/2022 12:51AM By CHRIS OSULLIVAN MD ; [facility] Adderall 20 MG Oral Tablet 10/14/2022 - 11/16/2022 Pro vider: CHASE OSULLIVAN MD Diagnosis: 1 tab by mouth up to three as needed. Last Documented On 11/16/2022 8:01AM By CHRIS OSULLIVAN MD ; [facility] Adderall 20 MG Oral Tablet 2022 - 10/14/2022 Pro vider: CHASE OSULLIVAN MD Diagnosis: 1 tab by mouth up to three as needed. Last Documented On 10/14/2022 3:20AM By CHRIS OSULLIVAN MD ; [facility] Adderall 20 MG Oral Tablet 08/24/2022 - 2022 Pro vider: CHASE OSULLIVAN MD Diagnosis: 1 tab by mouth up to three as needed. Last Documented On 2022 12:53AM By CHRIS OSULLIVAN MD ; [facility] Adderall 20 MG Oral Tablet 07/24/2022 - 08/24/2022 Pro vider: CHASE OSULLIVAN MD Diagnosis: 1 tab by mouth up to three as needed. Last Documented On 08/24/2022 10:46AM By CHRIS OSULLIVAN MD ; [facility] Adderall 20 MG Oral Tablet 06/22/2022 - 07/24/2022 Pro vider: CHASE OSULLIVAN MD Diagnosis: 1 tab by mouth up to three as needed. Last Documented On 07/24/2022 12:21AM By CHRIS OSULLIVAN MD ; [facility] Adderall 20 MG Oral Tablet 05/26/2022 - 06/22/2022 Pro vider: CHASE OSULLIVAN MD Diagnosis: 1 tab by mouth up to three as needed. Last Documented On 06/22/2022 1:41PM By CHRIS OSULLIVAN MD ; [facility] Adderall 20 MG Oral Tablet 04/23/2022 - 05/26/2022 Pro vider: CHASE OSULLIVAN MD Diagnosis: 1 tab by mouth up to three as needed. Last Documented On 05/26/2022 4:24PM By CHRIS OSULLIVAN MD ; [facility] Polytrim 77393-2.1 UNIT/ML-% Ophthalmic Solution 04/01/2022 - 11/24/2022 Provider: ELIZABETH BOWERS [employer] Diagnosis: Other mucopurule nt conjunctivitis, bilateral as directed 1 drop in affected eye q4 hours Last Documented On 3:23PM By FAMILIA PARHAM ; [facility] Adderall 20 MG Oral Tablet 03/25/2022 - 04/23/2022 Pro vider: CHASE OSULLIVAN MD Diagnosis: 1 tab by mouth up to three as needed. Last Documented On 04/23/2022 12:28AM By CHRIS OSULLIVAN MD ; [facility] Adderall 20 MG Oral Tablet 02/24/2022 - 03/25/2022 Pro vider: CHASE OSULLIVAN MD Diagnosis: 1 tab by mouth up to three as needed. Last Documented On 03/25/2022 1:53AM By CHRIS OSULLIVAN MD ; [facility] Adderall 20 MG Oral Tablet 02/23/2022 - 02/24/2022 Pro vider: CHASE OSULLIVAN MD Diagnosis: 1 tab by mouth up to three as needed. Last Documented On 02/24/2022 4:16PM By CHRIS OSULLIVAN MD ; [facility] Adderall 20 MG Oral Tablet 01/25/2022 - 02/23/2022 Pro vider: CHASE OSULLIVAN MD Diagnosis: 1 tab by mouth up to three as needed. Last Documented On 02/23/2022 4:53PM By CHRIS OSULLIVAN MD ; [facility] Adderall 20 MG Oral Tablet 12/20/2021 - 01/25/2022 Pro vider: CHASE OSULLIVAN MD Diagnosis: 1 tab by mouth up to three as needed. Last Documented On 01/25/2022 3:20PM By CHRIS OSULLIVAN MD ; [facility] Adderall 20 MG Oral Tablet 11/20/2021 - 12/20/2021 Pro vider: CHASE OSULLIVAN MD Diagnosis: 1 tab by mouth up to three as needed. Last Documented On 12/20/2021 3:08AM By CHRIS OSULLIVAN MD ; [facility] Adderall 20 MG Oral Tablet 10/20/2021 - 11/20/2021 Pro vider: CHASE OSULLIVAN MD Diagnosis: 1 tab by mouth up to three as needed. Last Documented On 11/20/2021 12:33AM By CHRIS OSULLIVAN MD ; [facility] Adderall 20 MG Oral Tablet 09/22/2021 - 10/20/2021 Pro vider: CHASE OSULLIVAN MD Diagnosis: 1 tab by mouth up to three as needed. Last Documented On 10/20/2021 8:05PM By CHRIS OSULLIVAN MD ; [facility] Adderall 20 MG Oral Tablet 08/22/2021 - 09/22/2021 Pro vider: CHASE OSULLIVAN MD Diagnosis: 1 tab by mouth up to three as needed. Last Documented On 09/22/2021 11:43PM By CHRIS OSULLIVAN MD ; [facility] Adderall 20 MG Oral Tablet 07/23/2021 - 08/22/2021 Pro vider: CHASE OSULLIVAN MD Diagnosis: 1 tab by mouth up to three as needed. Last Documented On 08/22/2021 4:19PM By CHRIS OSULLIVAN MD ; [facility] Adderall 20 MG Oral Tablet 06/20/2021 - 07/23/2021 Pro vider: CHASE OSULLIVAN MD Diagnosis: 1 tab by mouth up to three as needed. Last Documented On 07/23/2021 5:01PM By CHRIS OSULLIVAN MD ; [facility] Adderall 20 MG Oral Tablet 05/22/2021 - 06/20/2021 Pro vider: CHASE OSULLIVAN MD Diagnosis: 1 tab by mouth up to three as needed. Last Documented On 06/20/2021 3:44PM By CHRIS OSULLIVAN MD ; [facility] Adderall 20 MG Oral Tablet 04/22/2021 - 05/22/2021 Pro vider: CHASE OSULLIVAN MD Diagnosis: 1 tab by mouth up to three as needed. Last Documented On 05/22/2021 12:56PM By CHRIS OSULLIVAN MD ; [facility] Adderall 20 MG Oral Tablet 03/24/2021 - 04/22/2021 Pro vider: CHASE OSULLIVAN MD Diagnosis: 1 tab by mouth up to three as needed. Last Documented On 04/22/2021 3:54PM By CHRIS OSULLIVAN MD ; [facility] Adderall 20 MG Oral Tablet 02/16/2021 - 03/24/2021 Pro vider: CHASE OSULLIVAN MD Diagnosis: 1 tab by mouth up to three as needed. Last Documented On 03/24/2021 8:37AM By CHRIS OSULLIVAN MD ; [facility] Benzonatate 200 MG Oral Capsule 01/21/2021 - 03/10/2023 Provider: SUDARSHAN ABDUL MS [employer] Diagnosis: Cough One tablet three times a day as needed Last Documented On 03/10/2023 2:42PM By Marylou PARHAM ; [facility] Doxycycline Hyclate 100 MG Oral Capsule 01/21/2021 - 03/10/2023 Provider: SUDARSHAN AVILA [employer] Diagnosis: Acute sinusitis, unspecified One tablet twice a day Last Documented On 03/10/2023 2:42PM By Marylou PARHAM ; [facility] Adderall 20 MG Oral Tablet 01/17/2021 - 02/16/2021 Provider: CHASE OSULLIVAN MD Diagnosis: Attn-defct hyper activity disorder, predom inattentive type 1 tab by mouth up to three as needed. Last Documented On 02/16/2021 11:40PM By CHRIS OSULLIVAN MD ; [facility] Adderall 20 MG Oral Tablet 12/19/2020 - 01/17/2021 Provider: CHASE OSULLIVAN MD Diagnosis: Attn-defct hyper activity disorder, predom inattentive type 1 tab by mouth up to three as needed. Last Documented On 01/17/2021 10:12AM By CHRIS OSULLIVAN MD ; [facility] Adderall 20 MG Oral Tablet 11/21/2020 - 12/19/2020 Provider: CHASE OSULLIVAN MD Diagnosis: Attn-defct hyper activity disorder, predom inattentive type 1 tab by mouth up to three as needed. Last Documented On 12/19/2020 3:57PM By CHRIS OSULLIVAN MD ; [facility] Adderall 20 MG Oral Tablet 10/21/2020 - 11/21/2020 Provider: CHASE OSULLIVAN MD Diagnosis: Attn-defct hyper activity disorder, predom inattentive type 1 tab by mouth up to three as needed. Last Documented On 11/21/2020 11:21PM By CHRIS OSULLIVAN MD ; [facility] Adderall 20 MG Oral Tablet 09/22/2020 - 10/21/2020 Provider: CHASE OSULLIVAN MD Diagnosis: Attn-defct hyper activity disorder, predom inattentive type 1 tab by mouth up to three as needed. Last Documented On 10/21/2020 2:15PM By CHRIS OSULLIVAN MD ; [facility] Adderall 20 MG Oral Tablet 08/24/2020 - 09/22/2020 Provider: CHASE OSULLIVAN MD Diagnosis: Attn-defct hyper activity disorder, predom inattentive type 1 tab by mouth up to three as needed. Last Documented On 09/22/2020 11:49PM By CHRIS OSULLIVAN MD ; [facility] Adderall 20 MG Oral Tablet 07/23/2020 - 08/24/2020 Provider: CHASE OSULLIVAN MD Diagnosis: Attn-defct hyper activity disorder, predom inattentive type 1 tab by mouth up to three as needed. Last Documented On 08/24/2020 9:29PM By CHRIS OSULLIVAN MD ; [facility] Adderall 20 MG Oral Tablet 06/24/2020 - 07/23/2020 Provider: CHASE OSULLIVAN MD Diagnosis: Attn-defct hyper activity disorder, predom inattentive type 1 tab by mouth up to three as needed. Last Documented On 07/23/2020 4:08PM By CHRIS OSULLIVAN MD ; [facility] Adderall 20 MG Oral Tablet 05/23/2020 - 06/24/2020 Provider: CHASE OSULLIVAN MD Diagnosis: Attn-defct hyper activity disorder, predom inattentive type 1 tab by mouth up to three as needed. Last Documented On 06/24/2020 8:06AM By CHRIS OSULLIVAN MD ; [facility] Adderall 20 MG Oral Tablet 04/22/2020 - 05/23/2020 Provider: HCASE OSULLIVAN MD Diagnosis: Attn-defct hyper activity disorder, predom inattentive type 1 tab by mouth up to three as needed. Last Documented On 05/23/2020 1:09AM By CHRIS OSULLIVAN MD ; [facility] Adderall 20 MG Oral Tablet 03/21/2020 - 04/22/2020 Provider: CHASE OSULLIVAN MD Diagnosis: Attn-defct hyper activity disorder, predom inattentive type 1 tab by mouth up to three as needed. Last Documented On 04/22/2020 11:16PM By CHRIS OSULLIVAN MD ; [facility] Adderall 20 MG Oral Tablet 02/20/2020 - 03/21/2020 Provider: CHASE OSULLIVAN MD Diagnosis: Attn-defct hyper activity disorder, predom inattentive type 1 tab by mouth up to three as needed. Last Documented On 03/21/2020 2:31PM By CHRIS OSULLIVAN MD ; [facility] Amoxicillin-Pot Clavulanate 875-125 MG Oral Tablet 02/16/2020 - 03/10/2023 Provider: JOANNA REDMOND [employer] Diagnosis: Acute maxillary sinusitis, unspecified One tablet twice a day for 10 days Last Documented On 03/10/2023 2:42PM By Marylou PARHAM ; [facility] Adderall 20 MG Oral Tablet 01/22/2020 - 02/20/2020 Provider: CHASE OSULLIVAN MD Diagnosis: Attn-defct hyper activity disorder, predom inattentive type 1 tab by mouth up to three as needed. Last Documented On 02/20/2020 11:36PM By CHRIS OSULLIVAN MD ; [facility] Adderall 20 MG Oral Tablet 12/22/2019 - 01/22/2020 Provider: CHASE OSULLIVAN MD Diagnosis: Attn-defct hyper activity disorder, predom inattentive type 1 tab by mouth up to three as needed. Last Documented On 01/22/2020 3:26PM By CHRIS OSULLIVAN MD ; [facility] Adderall 20 MG Oral Tablet 11/22/2019 - 12/22/2019 Provider: CHASE OSULLIVAN MD Diagnosis: Attn-defct hyper activity disorder, predom inattentive type 1 tab by mouth up to three as needed. Last Documented On 12/22/2019 12:44AM By CHRIS OSULLIVAN MD ; [facility] Adderall 20 MG Oral Tablet 10/25/2019 - 11/22/2019 Provider: CHASE OSULLIVAN MD Diagnosis: Attn-defct hyper activity disorder, predom inattentive type 1 tab by mouth up to three as needed. Last Documented On 11/22/2019 4:17PM By CHRIS OSLULIVAN MD ; [facility] Adderall 20 MG Oral Tablet 09/27/2019 - 10/25/2019 Provider: CHASE OSULLIVAN MD Diagnosis: Attn-defct hyper activity disorder, predom inattentive type 1 tab by mouth up to three as needed. Last Documented On 10/25/2019 8:17AM By CHRIS OSULLIVAN MD ; [facility] Adderall 20 MG Oral Tablet 08/26/2019 - 09/27/2019 Provider: CHASE OSULLIVAN MD Diagnosis: Attn-defct hyper activity disorder, predom inattentive type 1 tab by mouth up to three as needed. Last Documented On 09/27/2019 6:14PM By CHRIS OSULLIVAN MD ; [facility] Adderall 20 MG Oral Tablet 07/27/2019 - 08/26/2019 Provider: CHASE OSULLIVAN MD Diagnosis: Attn-defct hyper activity disorder, predom inattentive type 1 tab by mouth up to three as needed. Last Documented On 08/26/2019 6:49PM By CHRIS OSULLIVAN MD ; [facility] Adderall 20 MG Oral Tablet 06/30/2019 - 07/27/2019 Provider: CHASE OSULLIVAN MD Diagnosis: Attn-defct hyper activity disorder, predom inattentive type 1 tab by mouth up to three as needed. Last Documented On 07/27/2019 9:33PM By CHRIS OSULLIVAN MD ; [facility] Adderall 20 MG Oral Tablet 05/31/2019 - 06/30/2019 Provider: SATHISH FOWLER Diagnosis: Attn-defct hyper activity disorder, predom inattentive type 1 tab by mouth up to three as needed. Last Documented On 06/30/2019 10:05AM By CHRIS OSULLIVAN MD ; [facility] Adderall 20 MG Oral Tablet 05/01/2019 - 05/31/2019 Provider: SATHISH FOWLER Diagnosis: Attn-defct hyper activity disorder, predom inattentive type 1 tab by mouth up to three as needed. Last Documented On 9 1:15PM By SATHISH FOWLER ; [facility] Adderall 20 MG Oral Tablet 04/03/2019 - 05/01/2019 Provider: SATHISH FOWLER Diagnosis: Attn-defct hyper activity disorder, predom inattentive type 1 tab by mouth up to three as needed. Last Documented On 9 12:50PM By SATHISH FOWLER ; [facility] Adderall 20MG Oral Tablet 03/03/2019 - 04/03/2019 Provider: CHASE OSULLIVAN MD Diagnosis: Attn-defct hyper activity disorder, predom inattentive type 1 tab by mouth up to three as needed. Last Documented On 9 12:29PM By SATHISH FOWLER ; [facility] Adderall 20MG Oral Tablet 02/02/2019 - 03/03/2019 Provider: CHASE OSULLIVAN MD Diagnosis: Attn-defct hyper activity disorder, predom inattentive type 1 tab by mouth up to three as needed. Last Documented On 03/03/2019 3:14PM By CHRIS OSULLIVAN MD ; [facility] Adderall 20MG Oral Tablet 01/03/2019 - 02/02/2019 Provider: CHASE OSULLIVAN MD Diagnosis: Attn-defct hyper activity disorder, predom inattentive type 1 tab by mouth up to three as needed. Last Documented On 02/02/2019 1:00AM By CHRIS OSULLIVAN MD ; [facility] Adderall 20MG Oral Tablet 12/05/2018 - 01/03/2019 Provider: CHASE OSULLIVAN MD Diagnosis: Attn-defct hyper activity disorder, predom inattentive type 1 tab by mouth up to three as needed. Last Documented On 01/03/2019 12:21AM By CHRIS OSULLIVAN MD ; [facility] Adderall 20MG Oral Tablet 11/03/2018 - 12/05/2018 Provider: CHASE OSULLIVAN MD Diagnosis: Attn-defct hyper activity disorder, predom inattentive type 1 tab by mouth up to three as needed. Last Documented On 12/05/2018 10:04AM By CHRIS OSULLIVAN MD ; [facility] Adderall 20MG Oral Tablet 10/05/2018 - 11/03/2018 Provider: CHASE OSULLIVAN MD Diagnosis: Attn-defct hyper activity disorder, predom inattentive type 1 tab by mouth up to three as needed. Last Documented On 11/03/2018 12:03AM By CHRIS OSULLIVAN MD ; [facility] Adderall 20MG Oral Tablet 09/06/2018 - 10/05/2018 Provider: CHASE OSULLIVAN MD Diagnosis: Attn-defct hyper activity disorder, predom inattentive type 1 tab by mouth up to three as needed. Last Documented On 10/05/2018 2:06PM By CHRIS OSULLIVAN MD ; [facility] Erythromycin 5MG/GM Ophthalmic Ointment 09/06/2018 - 04/14/2019 Provider: NESTOR BROWNING PA-C Diagnosis: Unspecified conjunctivitis Apply 1 cm ribbon to lower l id of affected eye TID x 4 days Last Documented On 04/14/2019 9:02AM By [email or web address] ; [facility] Amoxicillin 250MG Oral Capsule 09/06/2018 - 04/14/2019 Provider: NESTOR BROWNING PA-C Diagnosis: Streptococcal pharyngitis as directed Take 3 capsules once daily x 10 days Last Documented On 04/14/2019 9:01AM By [email or web address] ; [facility] Adderall 20MG Oral Tablet 08/03/2018 - 09/06/2018 Provider: CHASE OSULLIVAN MD Diagnosis: Attn-defct hyper activity disorder, predom inattentive type 1 tab by mouth up to three as needed. Last Documented On 09/06/2018 1:09PM By CHRIS OSULLIVAN MD ; [facility] Adderall 20MG Oral Tablet 07/04/2018 - 08/03/2018 Provider: CHASE OSULLIVAN MD Diagnosis: Attn-defct hyper activity disorder, predom inattentive type 1 tab by mouth up to three as needed. Last Documented On 08/03/2018 1:12PM By CHRIS OSULLIVAN MD ; [facility] Adderall 20MG Oral Tablet 07/03/2018 - 07/04/2018 Provider: CHASE OSULLIVAN MD Diagnosis: Attn-defct hyper activity disorder, predom inattentive type 1 tab by mouth up to three as needed. Last Documented On 07/04/2018 1:11PM By CHRIS OSULLIVAN MD ; [facility] Adderall 20MG Oral Tablet 07/01/2018 - 07/03/2018 Provider: CHASE OSULLIVAN MD Diagnosis: Attn-defct hyper activity disorder, predom inattentive type 1 tab by mouth up to three as needed. Last Documented On 07/03/2018 2:23PM By CHRIS OSULLIVAN MD ; [facility] Adderall 20MG Oral Tablet 06/02/2018 - 07/01/2018 Provider: CHASE OSULLIVAN MD Diagnosis: Attn-defct hyper activity disorder, predom inattentive type 1 TAB PO UP TO TID PRN Last Documented On 07/01/2018 1:46AM By CHRIS OSULLIVAN MD ; [facility] Adderall 20MG Oral Tablet 05/04/2018 - 06/02/2018 Provider: CHASE OSULLIVAN MD Diagnosis: Attn-defct hyper activity disorder, predom inattentive type 1 TAB PO UP TO TID PRN Last Documented On 06/02/2018 3:08PM By CHRIS OSULLIVAN MD ; [facility] Adderall 20MG Oral Tablet 04/06/2018 - 05/04/2018 Provider: CHASE OSULLIVAN MD Diagnosis: Attn-defct hyper activity disorder, predom inattentive type 1 TAB PO UP TO TID PRN Last Documented On 05/04/2018 1:18PM By CHRIS OSULLIVAN MD ; [facility] Adderall 30MG Oral Tablet 03/07/2018 - 04/17/2018 Provider: CHASE OSULLIVAN MD Diagnosis: Attn-defct hyper activity disorder, predom inattentive type One tablet twice a day Last Documented On 04/17/2018 10:14PM By CHRIS OSULLIVAN MD ; [facility] Adderall 30MG Oral Tablet 03/05/2018 - 04/06/2018 Provider: ECTOR ZHENG MD Diagnosis: Attn-defct hyper activity disorder, predom inattentive type One tablet twice a day Last Documented On 04/06/2018 4:42PM By CHRIS OSULLIVAN MD ; [facility] Adderall 30MG Oral Tablet 01/31/2018 - 03/05/2018 Provider: CHASE OSULLIVAN MD Diagnosis: Attn-defct hyper activity disorder, predom inattentive type One tablet twice a day Last Documented On 03/05/2018 12:56AM By CHRIS OSULLIVAN MD ; [facility] Adderall 30MG Oral Tablet 01/03/2018 - 01/31/2018 Provider: CHASE OSULLIVAN MD Diagnosis: Attn-defct hyper activity disorder, predom inattentive type One tablet twice a day Last Documented On 01/31/2018 7:17PM By CHRIS OSULLIVAN MD ; [facility] Adderall 30MG Oral Tablet 12/03/2017 - 01/03/2018 Provider: NESTOR BROWNING PA-C Diagnosis: Attn-defct hyper activity disorder, predom inattentive type One tablet twice a day Last Documented On 01/03/2018 11:58PM By CHRIS OSULLIVAN MD ; [facility] Adderall 30MG Oral Tablet 11/01/2017 - 12/03/2017 Provider: CHASE OSULLIVAN MD Diagnosis: Attn-defct hyper activity disorder, predom inattentive type One tablet twice a day Last Documented On 8 11:41AM By NESTOR BROWNING PA-C ; [facility] Adderall 30MG Oral Tablet 10/01/2017 - 11/01/2017 Provider: CHASE OSULLIVAN MD Diagnosis: Attn-defct hyper activity disorder, predom inattentive type One tablet twice a day Last Documented On 11/01/2017 12:22PM By CHRIS OSULLIVAN MD ; [facility] Adderall 30MG Oral Tablet 09/06/2017 - 10/01/2017 Provider: CHASE OSULLIVAN MD Diagnosis: Attn-defct hyper activity disorder, predom inattentive type One tablet twice a day Last Documented On 10/01/2017 1:18PM By CHRIS OSULLIVAN MD ; [facility] Zofran 4MG Oral Tablet 08/27/2017 - 04/14/2019 Provider: [facility]A [facility] Diagnosis: Viral intestinal infection, unspecified 1 every 4 - 6 hours as needed Last Documented On 04/14/2019 9:02AM By ANISA ; [facility] Adderall 30MG Oral Tablet 08/04/2017 - 09/06/2017 Provider: CHASE OSULLIVAN MD Diagnosis: Attn-defct hyper activity disorder, predom inattentive type One tablet twice a day Last Documented On 09/06/2017 10:39PM By CHRIS OSULLIVAN MD ; [facility] Adderall 30MG Oral Tablet 07/03/2017 - 08/04/2017 Provider: CHASE OSULLIVAN MD Diagnosis: Attn-defct hyper activity disorder, predom inattentive type One tablet twice a day Last Documented On 08/04/2017 11:24PM By CHRIS OSULLIVAN MD ; [facility] Adderall 30MG Oral Tablet 06/04/2017 - 07/03/2017 Provider: SATHISH BYRNES [facility] Diagnosis: Attn-defct hyper activity disorder, predom inattentive type One tablet twice a day Last Documented On 07/03/2017 11:23PM By CHRIS OSULLIVAN MD ; [facility] Adderall 30MG Oral Tablet 05/03/2017 - 06/04/2017 Provider: CHASE OSULLIVAN MD Diagnosis: Attn-defct hyper activity disorder, predom inattentive type One tablet twice a day Last Documented On 7 4:26PM By SATHISH BYRNES [facility] ; [facility] Adderall 30MG Oral Tablet 04/05/2017 - 05/03/2017 Provider: CHASE OSULLIVAN MD Diagnosis: Attn-defct hyper activity disorder, predom inattentive type One tablet twice a day Last Documented On 05/03/2017 4:43PM By CHRIS OSULLIVAN MD ; [facility] NexIUM 24HR 20MG Oral Capsule Delayed Release 04/05/20 - 04/06/2018 Provider: Diagnosis: Last Documented On 8 4:12PM By Sheryl Chávez MA ; [facility] Nexplanon 68MG Subcutaneous Implant 04/05/2017 - 06/22 Provider: Diagnosis: Last Documented On 7 11:36AM By CARL PARHAM ; [facility] Adderall 30MG Oral Tablet 03/05/2017 - 04/05/2017 Provider: CHASE OSULLIVAN MD Diagnosis: Attention-defici t hyperactivity disorder, unspecified type One tablet twice a day Last Documented On 04/05/2017 3:48PM By CHRIS OSULLIVAN MD ; [facility] Adderall 30MG Oral Tablet 02/01/2017 - 03/05/2017 Provider: CHASE OSULLIVAN MD Diagnosis: Attention-defici t hyperactivity disorder, unspecified type One tablet twice a day Last Documented On 03/05/2017 10:51AM By CHRIS OSULLIVAN MD ; [facility] Adderall 30MG Oral Tablet 01/01/2017 - 02/01/2017 Provider: CHASE OSULLIVAN MD Diagnosis: Attention-defici t hyperactivity disorder, unspecified type One tablet twice a day Last Documented On 02/01/2017 8:53PM By CHRIS OSULLIVAN MD ; [facility] Adderall 30MG Oral Tablet 12/02/2016 - 01/01/2017 Provider: CHASE OSULLIVAN MD Diagnosis: Attention-defici t hyperactivity disorder, unspecified type One tablet twice a day Last Documented On 01/01/2017 10:46AM By CHRIS OSULLIVAN MD ; [facility] Adderall 30MG Oral Tablet 11/01/2016 - 12/02/2016 Provider: CHASE OSULLIVAN MD Diagnosis: Attention-defici t hyperactivity disorder, unspecified type One tablet twice a day Last Documented On 12/02/2016 1:47PM By CHRIS OSULLIVAN MD ; [facility] Adderall 30MG Oral Tablet 10/02/2016 - 11/01/2016 Provider: CHASE OSULLIVAN MD Diagnosis: Attention-defici t hyperactivity disorder, unspecified type One tablet twice a day Last Documented On 11/01/2016 2:44PM By CHRIS OSULLIVAN MD ; [facility] Adderall 30MG Oral Tablet 10/02/2016 - 10/02/2016 Prov ider: Diagnosis: twice a day Last Documented On 10/02/2016 2:53PM By CHRIS OSULLIVAN MD ; [facility] Azurette 0.15-0.02/0.01 MG (/) OR TABS 09/18/2013 - 10/02/2016 Provider: WENLETY RODRIGUEZ-BC Diagnosis: SCANTY MENSTRUAT ION Last Documented On 10/02/2016 2:14PM By EDIN PARHAM ; [facility] Suboxone 12-3 MG SL FILM 09/18/2013 - 10/02/2016 Provi kym: Diagnosis: one sublingual daily Last Documented On 10/02/2016 2:15PM By EDIN PARHAM ; [facility] Zovia 35E (28) 1-35 MG-MCG OR TABS 12/26/2012 - 08/30/2013 Provider: WEN RODRIGUEZ-BC Diagnosis: CONTRACEPT SURVE ILL NOS Last Documented On 4 12:13PM By MIKE CHA LPN ; [facility] Loestrin 1.5/30 (21) 1.5-30 MG-MCG OR TABS 12/07/2012 - 08/30/2013 Provider: WEN RODRIGUEZ-BC Diagnosis: CONTRACEPT SURVE ILL NOS Last Documented On 4 12:13PM By MIKE CHA LPN ; [facility] NexIUM 40 MG OR CPDR 12/07/2012 - 10/02/2016 Provider: Diagnosis: Last Documented On 10/02/2016 2:14PM By EDIN PARHAM ; [facility] Terconazole 0.8% VA CREA 10/20/2012 - 12/07/2012 Provider: IVANIA GARCIA RN ZECHARIAH BC Diagnosis: CANDIDAL VULVOVA GINITIS 1 JASSI IN VAGINA EVERY NIGHT X 3 APPLY BID TO EXTERNAL AREA Last Documented On 12/07/2012 4:03PM By SAGE PARHAM ; [facility] Azithromycin 500 MG OR TABS 10/20/2012 - 12/07/2012 Pr ovider: IVANIA RODRIGUEZ BC Diagnosis: CERVICITIS 2 TABLETS NOW Last Documented On 12/07/2012 4:03PM By SAGE PARHAM ; [facility] Loestrin 1.5/30 (21) 1.5-30 MG-MCG OR TABS 09/28/2012 - 12/07/2012 Provider: WEN VELASQUEZ SENIOR TECHNICAL ARCHITECT-BC Diagnosis: Last Documented On 3 4:14PM By WEN RODRIGUEZ-BC ; [facility] Zovia 35E (28) 1-35 MG-MCG OR TABS 09/19/2012 - 10/20/2012 Provider: WEN BOOKER SENIOR TECHNICAL ARCHITECT-BC Diagnosis: WWE due ! Last Documented On 10/20/2012 8:14AM By ROMARIO PARHAM ; [facility] Zovia 35E (28) 1-35 MG-MCG OR TABS 07/15/2012 - 09/19/2012 Provider: WEN BOOKER SENIOR TECHNICAL ARCHITECT-BC Diagnosis: Last Documented On 3 9:18AM By WEN BOOKER ZECHARIAH-BC ; [facility] Zithromax 1 GM OR PACK 07/13/2012 - 12/07/2012 Provide r: WEN VELASQUEZNP-BC Diagnosis: take one gram po x 1 dose - no liquid dose please! - Called in to Mik Last Documented On 12/07/2012 4:03PM By SAGE PARHAM ; [facility] Flagyl 500 MG OR TABS 07/13/2012 - 12/07/2012 Provider : WEN VELASQUEZNP-BC Diagnosis: Called to Mik Last Documented On 12/07/2012 4:03PM By SAGE PARHAM ; [facility] Loestrin 1.5/30 (21) 1.5-30 MG-MCG OR TABS 12/15/2011 - 09/28/2012 Provider: WEN BOOKER SENIOR TECHNICAL ARCHITECT-BC Diagnosis: Last Documented On 3 3:47PM By WEN RODRIGUEZ-RAFAEL ; [facility] Loestrin 1.5/30 (21) 1.5-30 MG-MCG OR TABS 12/07/2011 - 12/15/2011 Provider: WEN BOOKER SENIOR TECHNICAL ARCHITECT-BC Diagnosis: Last Documented On 2 11:29AM By WEN RODRIGUEZ-BC ; [facility] Loestrin 1.5/30 (21) 1.5-30 MG-MCG OR TABS 08/17/2011 - 12/07/2011 Provider: WEN VELASQUEZ SENIOR TECHNICAL ARCHITECT-BC Diagnosis: Last Documented On 2 11:41AM By WEN RODRIGUEZ-BC ; [facility] Flagyl 500 MG OR TABS 06/25/2011 - 12/07/2012 Provider : WEN RODRIGUEZ-BC Diagnosis: Last Documented On 12/07/2012 4:03PM By SAGE PARHAM ; [facility] Diflucan 150 MG OR TABS 06/24/2011 - 12/07/2012 Provid er: WEN RODRIGUEZ-BC Diagnosis: take one dose po x 1 and may repeat in 3 days if needed Last Documented On 12/07/2012 4:03PM By SAGE PARHAM ; [facility] Bactrim DS 800-160 MG OR TABS 03/19/2011 - 12/07/2012 Provider: WEN RODRIGUEZ-BC Diagnosis: Last Documented On 12/07/2012 4:03PM By SAGE PARHAM ; [facility] Loestrin 1.5/30 (21) 1.5-30 MG-MCG OR TABS 12/05/2010 - 08/17/2011 Provider: WEN VELASQUEZ SENIOR TECHNICAL ARCHITECT-BC Diagnosis: Last Documented On 2 10:38AM By WEN CONNELL ; [facility] Loestrin 1.5/30 (21) 1.5-30 MG-MCG OR TABS 11/12/2010 - 12/05/2010 Provider: WEN VELASQUEZ SENIOR TECHNICAL ARCHITECT-BC Diagnosis: Last Documented On 1 11:12AM By WEN CONNELL ; [facility] Ortho-Cyclen (28) 0.25-35 MG-MCG OR TABS 11/10/2010 - 11/12/2010 Provider: WEN VELASQUEZ SENIOR TECHNICAL ARCHITECT-BC Diagnosis: Last Documented On 1 7:12AM By WEN CONNELL ; [facility] Medications Administered Includes: Administered Medications in patient's chart No Administered Medications Recorded Vital Signs Includes: Vital Signs from 09/03/2023 through 09/03/2024 Vital Name 11/29/2023 09:46A Blood Pressure Sitting L 102/74 BP Cuff Size Large Pulse Rate-Sitting (bpm) 95 Pulse Rhythm Regular Respiration Rate (breaths/min) 21 Temp-Oral (F) 98.7 Height (in) 67 Weight (lb) 264 Body Mass Index 41.3 Body Surface Area 2.3 Oxygen Saturation (%) 96 Last Documented: On 11/29/2023 9:54AM ; [facility] Results Includes: Results from 09/03/2023 through 09/03/2024 No Results Recorded For Specified Dates History of Present Illness History of Present Illness not supported for this document type No History of Present Illness Recorded Social History Description Last Updated Consuming 5 or more drinks per day None 11/29/2023 Last Documented On 4 4:38AM ; [facility] Not recovering alcoholic 11/29/2023 Last Documented On 4 4:38AM ; [facility] Not recovering from substance abuse 12/2023 Last Documented On 4 4:38AM ; [facility] Number of times used recreat ional drug/ prescription drug for nonmedical reason. None 11/29/2023 Last Documented On 4 4:38AM ; [facility] No consumption of alcohol 03/10/2023 Last Documented On 3 4:24AM ; [facility] Not a current smoker 03/10/2023 Last Documented On 3 4:24AM ; [facility] Not using drugs 03/10/2023 Last Documented On 3 4:24AM ; [facility] Tobacco non-user 04/01/2022 Last Documented On 2 10:26AM ; [facility] Current nonsmoker 01/21/2021 Last Documented On 1 9:50AM ; [facility] Not using alcohol 04/05/2017 Last Documented On 7 3:56AM ; [facility] Exercising regularly 3 TIMES PER WEEK WA LKING AND YOGA AND MEDITATION 10/02/2016 Last Documented On 7 7:56AM ; [facility] No caffeine use 10/02/2016 Last Documented On 7 7:56AM ; [facility] Smoking Status Unknown Procedures and Surgical History Surgical History Last Updated Tonsillectomy 12/07/2011 Last Documented On 2 11:41AM ; [facility] Medical History Includes: Medical History in patient's chart Description Last Updated Pt does not get blood pressure checked a t other facility 11/29/2023 Last Documented On 4 4:38AM ; [facility] Vaccine history 11/29/2023 Last Documented On 4 4:38AM ; [facility] Date COVID symptoms started: January 10 0 01/21/2021 Last Documented On 1 9:50AM ; [facility] LMP: on Nexplanon 04/17/2018 Last Documented On 8 10:25PM ; [facility] TONSILS 5TH GRADE ~ 10/02/2016 Last Documented On 7 7:56AM ; [facility] 0 11/22/2009 Last Documented On 0 9:46AM ; [facility] Family History Includes: Family History in patient's chart Description Last Updated Maternal history of family history of ca ncer KIDNEY 10/02/2016 Last Documented On 7 7:56AM ; [facility] Maternal history of family history of ki dney disease 10/02/2016 Last Documented On 7 7:56AM ; [facility] Family history of diabetes mellitus mate rnal grandparents ~mother 12/07/2011 Last Documented On 2 11:41AM ; [facility] Family history of uterine cancer MGM Last Documented On 1 11:13AM ; [facility] Family medical history of high blood pre ssure 11/22/2009 Last Documented On 0 9:46AM ; [facility] Family medical history of High Cholester ol 11/22/2009 Last Documented On 0 9:46AM ; [facility] Family history of malignant female breas t neoplasm maternal grandma 11/22/2009 Last Documented On 0 9:46AM ; [facility] Family history of malignant neoplasm of the ovary mother et Aunt 11/22/2009 Last Documented On 0 9:46AM ; [facility] Review of Systems Review of Systems not supported for this document type No Review of Systems Recorded Mental Status Description Oriented to time, place, and person Functional Status No Functional Status Recorded Physical Exam Physical Exam not supported for this document type No Physical Exam Recorded Immunizations Includes: Immunizations in patient's chart Vaccine Dose # Date Site Reaction(s) Status Source COVID-19 Moderna 1 08/27/2020 Complete (Re ported) Patient Last Documented On 3 2:45PM ; [facility] COVID-19 Moderna 2 09/24/2020 Complete (Re ported) Patient Last Documented On 3 2:45PM ; [facility] Allergies Includes: Active, inactive, and resolved Allergies No Known Allergies Encounters Includes: Encounters from 09/03/2023 through 09/03/2024 Encounter Provider Location Date Check-In Time Check-Out Time Diagnosis CHECK UP CHASE OSULLIVAN MD [facility] 11/29/19 24 9:39AM 10:12AM Adhd, Predominantly Inattentive Type,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 Has been seeing a nutrionist and epic trainer since October an dhas lost 15 [...] 2023. She routinely follows up with an endocrinology physician. She has a history of obesity. She routinely follows up with a nurse practitioner per diem and epic trainer. She lost 15 pounds in the [...] receive dose of pneumococcal vaccine Discussed Dr. Osullivan reviewed her lab results and updated her [...]
--- OUTSIDE RECORDS SUMMARY | 2024-09-03 09:59 | XMS_ITS | Continuity of Care Document ---
Author Organization [facility] Address [address] [place] [address] [place] [address] Phone Care Team Providers Care Boilermaker Helper Name Role Phone Devang Mims MD Unavailable [...] Diagnoses Date Provider Providers Copied on Encounter [facility], [address] [place], [place], [id number], tel:[phone] [facility] No Information 0 3 Prasanna Siddiqi. [address] [facility] [place], [place], [id number] , [place]. tel:[phone] [facility], [address] [place], [place], [id number], [place] tel:[phone] [facility] No Information 2 3 Prasanna Siddiqi. [address] [facility] [place], [place], [id number] , [place]. tel:[phone] OFFICE/OUTPA TIENT VISIT, EST [facility], [address], [place], [place], [address], [place] tel:[phone] [facility] ADD (chief complaint) anxiety (chief complaint) Dietary surveillance and counselingHypertens ion, UnspecifiedAttentio n deficit disorder of childhood without mention of hyperactivityGenera lized anxiety disorder 0-201 3 Prasanna Siddiqi. [address], [place], [place], [id number] , [place]. tel:[phone] Referring Provider: Pepito De Leon [facility] [address], [place], [place], [id number]. tel:[phone] PREV VISIT, EST, AGE 18-39 [facility], [address], [place], [place], [address], [place] tel:[phone] [facility] physical (chief complaint) Dietary surveillance and counselingRoutine Medical ExamAttention deficit disorder of childhood without mention of hyperactivityGenera lized anxiety disorderRoutine Medical Exam 8201 2 Prasanna Siddiqi. [address], [place], [place], [address] , [place]. tel:[phone] Referring Provider: Pepito De Leon [address], [place], [place], [id number]. tel:[phone] Family History Family Member Type Diagnosis Age At Onset Mother Problem (finding) Alive and well Brother Problem (finding) Alive and well Father Problem (finding) Alive and well Payers Payer name Insurance type Covered constitution party ID Authoriza tion(s) No Information Social History Type Description Quantity Date Captured Comments Sex Female Smoking Status No Information Chief Complaint And Reason For Visit No Information Plan Of Treatment Date Type Action Status No Information History Of Present Illness Encounter Date Complaint History Of Prese nt Illness No Information Instructions Date Instruction Additional Infor kai Dietary counseling Related to Di etary surveillance counseling Decrease caloric intake Related to Dietary surveillance counseling Dietary counseling Related to Di etary surveillance counseling Decrease caloric intake Related to Dietary surveillance counseling Assessments Type Assessment Date No Information
--- OUTSIDE RECORDS SUMMARY | 2024-09-03 09:59 | XMS_ITS | Clinical Summary ---
Author Organization 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 04/01/2023 CHASE ZIEGLER MD Active Last Documented On 04/01/2023 4:23AM ; [facility] Note: Unchanged 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 04/17/2018 CHASE ZIEGLER MD Active Last Documented On 04/17/2018 10:19PM ; [facility] Note: Unchanged Opioid Dependence in Remission 04/17/2018 CHASE ZIEGLER MD Active Last Documented On 04/17/2018 10:25PM ; [facility] Note: Unchanged - Clean since 08-06-13 rodriguez boxone therapy Opioid Dependence 09/18/2013 CHASE ZIEGLER MD Active Last Documented On 04/17/2018 10:16PM ; [facility] Note: Clean since 08-06-13 and on suboxon e therapy Reported Family History of Cancer 12/04/2011 WEN BOOKER [facility]- Active Last Documented On 12/04/2011 10:13AM ; [facility] Note: mother - [...] weeks [facility]: [facility] [address] [facility], [id number] - Last Documented On 05/04/2023 8:37AM By Marylou PARHAM ; [facility] Wegovy 0.5 MG/0.5ML Subcutaneous Solution Auto-injector Provider: CHASE ZIEGLER MD 28 day supply: 2 mL, 0 refills Diagnosis: Abnormal weight gain second month dosing, inject 0.5 mg subcutaneous once weekly for 4 weeks Pharmacy: [facility] - [address] , [facility], [id number] - Last Documented On 05/04/2023 8:37AM By Marylou PARHAM ; [facility] Wegovy 1 MG/0.5ML Subcutaneo us Solution Auto-injector Provider: CHASE Landaverde day supply: 2 mL, 0 refills Diagnosis: Abnormal weight gain after titrating up with the other two doses- inject 1mg once weekly for 4 weeks Pharmacy: [facility] [address] , [facility], [id number] - Last Documented On 05/04/2023 8:37AM By Marylou PARHAM ; [facility] Current Medications (continue as prescribed) Adderall 30 MG Oral Tablet 12/18/2023 Provider: CHASE ZIEGLER MD Diagnosis: Attention-defici t hyperactivity disorder, unspecified type One tablet twice a day Last Documented On 12/18/2023 12:55PM By CHRIS ZIEGLER MD ; [facility] Kyleena 19.5 MG Intrauterine Intrauterine device 11/28 Provider: Diagnosis: Last Documented On 11/29/2023 9:47AM By Ángela Zheng ; [facility] Famotidine 20 MG Oral Tablet 11/10/2023 Provider: Diagnosis: Last Documented On 11/29/2023 9:50AM By Ángela Zheng ; [facility] Montelukast Sodium 10 MG Oral Tablet 09/08/2023 Prov ider: Diagnosis: Last Documented On 11/29/2023 9:51AM By Ángela Zheng ; [facility] ZyrTEC Allergy 10 MG Oral Tablet 03/10/2023 Provider : Diagnosis: Last Documented On 03/10/2023 2:42PM By Marylou PARHAM ; [facility] EpiPen 2-Basil 0.3 MG/0.3ML Injection Solution Auto-inje ctor 03/10/2023 Provider: Diagnosis: Last Documented On 03/10/2023 2:44PM By Marylou PARHAM ; [facility] Medications Administered Includes: Administered Medications from [...] Relationship Effect kayleigh Dates 1 - [employer] [id number] ESTER CHEN Self Clinical Notes Includes: Clinical Notes from this encounter * Progress note Date Encounter Last Documented by 04/16/2023 RX ISSUE/REFILL Last documented on 04/16/2023; 8:55 AM, Marylou PARHAM; [facility] Active Problems & Conditions - Adhd, [...]
--- OUTSIDE RECORDS SUMMARY | 2024-09-03 09:59 | XMS_ITS | Clinical Summary ---
Author Organization [facility] Address [address] [place] [address] Phone Care Team Providers Care Assembler Ping Pong Table Name Role Phone CHASE ZIEGLER MD Primary Care Provider [phone] WILLIAM HUDSON Unavailable [phone] Reason for Visit and Chief Complaint The Chief Complaint is: Check up, started allergy shots at beginning of year. Has been seeing a nutrionist and customer service trainer since October an dhas lost 15 lbs per patient Problems Includes: Problems addressed during this encounter and other active Problems Current Visit Onset Date Resolved Date Provider Conditio n Status Adhd, Predominantly Inattentive Type 04/01/2023 CHASE ZIEGLER MD Active Last Documented On 04/01/2023 4:23AM ; [facility] Note: Unchanged 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 04/01/2023 CHASE ZIEGLER MD Active Last Documented On 04/01/2023 4:23AM ; [facility] Note: Unchanged Opioid Dependence in Remission 04/17/2018 CHASE ZIEGLER MD Active Last Documented On 04/17/2018 10:25PM ; [facility] Note: Unchanged - Clean since 08-06-13 rodriguez boxone therapy Past Visits Onset Date Resolved Date Provider Condition Status 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 04/17/2018 CHASE ZIEGLER MD Active Last Documented On 04/17/2018 10:19PM ; [facility] Note: Unchanged Opioid Dependence 09/18/2013 CHASE ZIEGLER MD Active Last Documented On 04/17/2018 10:16PM ; [facility] Note: Clean since 08-06-13 and on suboxon e therapy Reported Family History of Cancer 12/04/2011 [facility]- Active Last Documented On 12/04/2011 10:13AM ; [facility] Note: mother - kidney cancer Plan of Treatment No Plan of Treatment Recorded Assessments Includes: Assessments from this encounter Findings - Routine adult history and physical (18-64 yrs) without abnormal findings [Z00.00 - Encounter for general adult medical examination without abnormal findings] - Last Documented On 12/15/2023 4:38AM ; [facility] - Allergic rhinitis due to pollen [J30.1 - Allergic rhinitis due to pollen] - Last Documented On 12/15/2023 4:38AM ; [facility] - ADHD, 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 - Attention-deficit hyperactivity disorder, predominantly inattentive type] - Last Documented On 12/15/2023 4:38AM ; [facility] - Opioid dependence in remission [F11.21 - Opioid dependence, in remission] - Last Documented On 12/15/2023 4:38AM ; [facility] Medical Equipment - Implanted Devices Includes: Current Devices No Medical Equipment Recorded Medications Includes: Medications discussed during this encounter and other current Medications Discontinued / Stopped on this date CHASE ZIEGLER MD on 11/08/2023 Wegovy 1 MG/0.5ML Subcutaneo us Solution Auto-injector Provider: CHASE Landaverde Diagnosis: Abnormal weight gain Last Documented On 11/29/2023 9:49AM By Ángela Zheng ; [facility] Current Medications (continue as prescribed) Adderall 30 MG Oral Tablet 12/18/2023 Provider: CHASE ZIEGLER MD Diagnosis: Attention-defici t hyperactivity disorder, unspecified type One tablet twice a day Last Documented On 12/18/2023 12:55PM By CHRIS ZIEGLER MD ; [facility] Kyleena 19.5 MG Intrauterine Intrauterine device 11/28 Provider: Diagnosis: Last Documented On 11/29/2023 9:47AM By Ángela Zheng ; [facility] Famotidine 20 MG Oral Tablet 11/10/2023 Provider: Diagnosis: Last Documented On 11/29/2023 9:50AM By Ángela Zheng ; [facility] Montelukast Sodium 10 MG Oral Tablet 09/08/2023 Prov ider: Diagnosis: Last Documented On 11/29/2023 9:51AM By Ángela Zheng ; [facility] ZyrTEC Allergy 10 MG Oral Tablet 03/10/2023 Provider : Diagnosis: Last Documented On 03/10/2023 2:42PM By Marylou PARHAM ; [facility] EpiPen 2-Basil 0.3 MG/0.3ML Injection Solution Auto-inje ctor 03/10/2023 Provider: Diagnosis: Last Documented On 03/10/2023 2:44PM By Marylou PARHAM ; [facility] Medications Administered Includes: Administered Medications [...] 96 Last Documented: On 11/29/2023 9:54AM ; [facility] Results Includes: Results [...] 2023. She routinely follows up with an sr. operations manager. She has a history of obesity. She routinely follows up with a rod straightener and customer service trainer. She lost 15 pounds in the past 6 months and weighed 264 pounds in the clinic today. Social History Description Last Updated Consuming 5 or more drinks per day None 11/29/2023 Last Documented On 4 4:38AM ; [facility] Not recovering alcoholic 11/29/2023 Last Documented On 4 4:38AM ; [facility] Not recovering from substance abuse 12/2023 Last Documented On 4 4:38AM ; [facility] Number of times used recreat ional drug/ prescription drug for nonmedical reason. None 11/29/2023 Last Documented On 4 4:38AM ; [facility] No consumption of alcohol 03/10/2023 Last Documented On 4 4:31PM ; [facility] Not a current smoker 03/10/2023 Last Documented On 4 4:31PM ; [facility] Not using drugs 03/10/2023 Last Documented On 4 4:31PM ; [facility] Tobacco non-user 04/01/2022 Last Documented On 4 4:31PM ; [facility] Current nonsmoker 01/21/2021 Last Documented On 4 4:31PM ; [facility] Not using alcohol 04/05/2017 Last Documented On 4 4:31PM ; [facility] Exercising regularly 3 TIMES PER WEEK WA LKING AND YOGA AND MEDITATION 10/02/2016 Last Documented On 4 4:31PM ; [facility] No caffeine use 10/02/2016 Last Documented On 4 4:31PM ; [facility] Smoking Status Unknown Procedures and Surgical History Includes: Procedures from this encounter Procedures Code Diagnosis Performing Provider Service L ocation Service Date plan of care reviewed and agreed to Last Documented On 4 9:59AM ; [facility] use of tobacco assessment performed 1000F Last Documented On 4 9:45AM ; [facility] standardized depression screening: negative for symptoms 3351F Last Documented On 4 9:45AM ; [facility] review of medications documented 1160F Last Documented On 4 9:45AM ; [facility] screening for adult depression: impressi on and score 0 Last Documented On 4 9:45AM ; [facility] Reviewed & agreed to staff entries. Last Documented On 4 9:59AM ; [facility] Clinical summary provided to patient Last Documented On 4 9:59AM ; [facility] Surgical History Last Updated Tonsillectomy 12/07/2011 Last Documented On 4 4:31PM ; [facility] Medical History Includes: Medical History addressed during this encounter Description Last Updated Pt does not get blood pressure checked a t other facility 11/29/2023 Last Documented On 4 4:38AM ; [facility] Vaccine history 11/29/2023 Last Documented On 4 4:38AM ; [facility] Date COVID symptoms started: January 10 0 01/21/2021 Last Documented On 4 4:31PM ; [facility] LMP: on Nexplanon 04/17/2018 Last Documented On 4 4:31PM ; [facility] TONSILS 5TH GRADE ~ 10/02/2016 Last Documented On 4 4:31PM ; [facility] 0 11/22/2009 Last Documented On 4 4:31PM ; [facility] Family History Includes: Family History addressed during this encounter Description Last Updated Maternal history of family history of ca ncer KIDNEY 10/02/2016 Last Documented On 4 4:31PM ; [facility] Maternal history of family history of ki dney disease 10/02/2016 Last Documented On 4 4:31PM ; [facility] Family history of diabetes mellitus mate rnal grandparents ~mother 12/07/2011 Last Documented On 4 4:31PM ; [facility] Family history of uterine cancer MGM Last Documented On 4 4:31PM ; [facility] Family medical history of high blood pre ssure 11/22/2009 Last Documented On 4 4:31PM ; [facility] Family medical history of High Cholester ol 11/22/2009 Last Documented On 4 4:31PM ; [facility] Family history of malignant female breas t neoplasm maternal grandma 11/22/2009 Last Documented On 4 4:31PM ; [facility] Family history of malignant neoplasm of the ovary mother et Aunt 11/22/2009 Last Documented On 4 4:31PM ; [facility] Review of Systems Includes: Review [...] Time Diagnosis CHECK UP CHASE ZIEGLER MD [facility] 11/29/19 24 9:39AM 10:12AM Adhd, Predominantly Inattentive Type,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,Opioid Dependence in Remission,Routin e History & Physical Adult Without Abnormal Findings Insurance Includes: Active Insurance Policies Plan Name Member ID Group # Subscriber Relationship Effect kayleigh Dates - AENA [id number] ESTER CHEN Self Clinical Notes Includes: Clinical Notes from this encounter * Progress note Date Encounter Last Documented by 11/29/2023 CHECK UP Last documented on 12/15/2023; 4:38 AM, CHASE ZIEGLER MD; [facility] Active Problems & Conditions - [...] year. Has been seeing a nutrionist and customer service trainer since October an dhas lost 15 [...] 2023. She routinely follows up with an sr. operations manager. She has a history of obesity. She routinely follows up with a rod straightener and customer service trainer. She lost 15 pounds in the [...]
--- OUTSIDE RECORDS SUMMARY | 2024-09-03 10:00 | XMS_ITS ---
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 Name Role Phone CHASE OSULLIVAN MD Primary Care Provider [phone] WILLIAM HUDSON Unavailable [phone] Problems Includes: Active, inactive, and resolved Problems All Visits Onset Date Resolved Date Provider Condition S tatus Adhd, Predominantly Inattentive Type 04/01/2023 CHASE OSULLIVAN MD Active Last Documented On 04/01/2023 4:23AM ; [facility] Note: Unchanged 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 04/01/2023 CHASE OSULLIVAN MD Active Last Documented On 04/01/2023 4:23AM ; [facility] Note: Unchanged 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- Active Last Documented On 12/04/2011 10:13AM ; [facility] Note: mother - kidney cancer Plan of Treatment Findings Encounter Date Ordered follow-up visit as n eeded with an office visit if symptoms persist or worsen COVID SICK VISIT- ESTABLISHED PATIENT with JAMIE GARCIAP-BC 11/24/2022 Last Documented On 3 4:01PM ; [facility] Ordered patient to call if angus anand develops COVID SICK VISIT- ESTABLISHED PATIENT with JAMIE WILLIS NAIL EXPERT-BC 11/24/2022 Last Documented On 3 4:01PM ; [facility] Ordered return to the clinic if condition worsens or new symptoms arise COVID SICK VISIT- ESTABLISHED PATIENT with JAMIE WILLIS NAIL EXPERT-BC 11/24/2022 Last Documented On 3 4:01PM ; [facility] Ordered patient will call fo r appointment as needed COVID SICK VISIT- ESTABLISHED PATIENT with SUDARSHAN AVILA NAIL EXPERT-C 01/21/2021 Last Documented On 1 9:50AM ; [facility] Ordered return to the clinic if condition worsens or new symptoms arise COVID SICK VISIT- ESTABLISHED PATIENT with SUDARSHAN AVILA NAIL EXPERT-C 01/21/2021 Last Documented On 1 9:50AM ; [facility] The options include close observation CO VID SICK VISIT- ESTABLISHED PATIENT with SUDARSHAN AVILA NAIL EXPERT-C 01/21/2021 Last Documented On 1 9:50AM ; [facility] Pt to use prescription as or dered. Purpose of and use of medication discussed. 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 Plan discussed and patient/parent/caregiver states understanding SICK VISIT with NESTOR BROWNING PA-C 09/06/2018 Last Documented On 9 11:13AM ; [facility] Ordered follow-up visit [...] 09/06/2018 Last Documented On 9 11:13AM ; [facility] Ordered patient will call fo r appointment as needed SICK VISIT with CHAYA ROSS [facility] 08/27/2017 Last Documented On 8 9:30AM ; [facility] Ordered return to the clinic if condition worsens or new symptoms arise SICK VISIT with CHAYA ROSS [facility] 08/27/2017 Last Documented On 8 9:30AM ; [facility] Ordered Clinical summary pro vided to patient . Plan discussed and patient/parent/caregiver states understanding SICK VISIT with NESTOR BROWNING PA-C 06/22/2017 Last Documented On 7 1:16PM ; [facility] Ordered follow-up visit as n eeded with an office visit. [place] diet--bananas, rice, applesauce, toast, yogurt x 2 days. Fluids--1TBS gatoraide/poweraide every 10 min. OTC tylenol/ibuprofen as needed for fever/pain. OTC sinus pills--dayquil/nyquil as needed. Call sooner if symptoms worsen/persist beyond 4 days SICK VISIT with NESTOR BROWNING PA-C 06/22/2017 Last Documented On 7 1:16PM ; [facility] CPM 6 MONTH CHECK with CHASE RAMIREZ MD 04/05/2017 Last Documented On 7 3:56AM ; [facility] Ordered weight loss diet NEW PATIENT VISIT with CHASE OSULLIVAN MD 10/02/2016 Last Documented On 7 7:56AM ; [facility] PLAN [Use for s.o.a.p. 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- 11/22/2009 Last Documented On 0 9:46AM ; [facility] Referrals To Diagnosis Other Note: Dr. Lavern Yin - [facility], [place] - evaluate constipation and lower extremity edema Last Documented On 4 2:14PM ; [facility] Instructions to patient Go to the emergency room if condition worsens Last Documented On 3 3:59PM ; [facility] Watch for signs/symptoms of infection Last Documented On 3 3:59PM ; [facility] Watch for signs/symptoms of infection, return to the clinic if seen Last Documented On 3 3:59PM ; [facility] Intervention and counseling on cessation of tobacco use Last Documented On 1 8:51AM ; [facility] Recommend diet and exercise at least 30 min three times per week Last Documented On 9 11:07PM ; [facility] Lose weight Last Documented On 7 7:56AM ; [facility] Lose weight Last Documented On 4 3:53PM ; [facility] Safe sex counseling Last Documented On 4 3:53PM ; [facility] Instructions for patient : B reast Self Exam discussed Last Documented On 3 4:00PM ; [facility] Lose weight Last Documented On 3 4:00PM ; [facility] Gardasil information given a nd series encouraged Last Documented On 3 4:00PM ; [facility] Safe sex counseling Last Documented On 3 4:00PM ; [facility] Instructions for patient : K eep the area around the vulva dry. Allow the area to have exposure to air. Avoid irritants such as fabric softeners and perfumed soaps.~ Last Documented On 3 8:38AM ; [facility] Instructions for patient : p atient is to keep a menstrual diary to help with further evaluation and treatment Last Documented On 2 4:02PM ; [facility] Instructions for patient : K eep the area around the vulva dry. Allow the area to have exposure to air. Avoid irritants such as fabric softeners and perfumed soaps.~ Last Documented On 2 4:34PM ; [facility] Advised d/c scented bath pro ducts Last Documented On 2 4:34PM ; [facility] Instructions For Patient: pe lvic rest until test results back Last Documented On 2 4:36PM ; [facility] Instructions for patient : B reast Self Exam discussed Last Documented On 2 11:12AM ; [facility] Lose weight Last Documented On 2 11:13AM ; [facility] Gardasil information given a nd series encouraged Last Documented On 2 11:13AM ; [facility] Safe sex counseling Last Documented On 2 11:13AM ; [facility] Instructions for patient : K eep the area around the vulva dry. Allow the area to have exposure to air. Avoid irritants such as fabric softeners and perfumed soaps.~ Last Documented On 1 2:54PM ; [facility] Advised d/c scented bath pro ducts Last Documented On 1 2:54PM ; [facility] Instructions For Patient: pe lvic rest until test results back Last Documented On 1 2:39PM ; [facility] Instructions for patient : K eep the area around the vulva dry. Allow the area to have exposure to air. Avoid irritants such as fabric softeners and perfumed soaps.~ Last Documented On 1 1:04PM ; [facility] Advised d/c scented bath pro ducts Last Documented On 1 1:04PM ; [facility] Instructions for patient : B reast Self Exam discussed Last Documented On 1 10:57AM ; [facility] Lose weight Last Documented On 1 10:58AM ; [facility] Gardasil information given a nd series encouraged Last Documented On 1 10:58AM ; [facility] Safe sex counseling Last Documented On 1 10:58AM ; [facility] Instructions for patient : B reast Self Exam discussed Last Documented On 0 9:25AM ; [facility] Lose weight Last Documented On 0 9:28AM ; [facility] Gardasil information given a nd series encouraged Last Documented On 0 9:25AM ; [facility] Education and Decision Aids were provided during visit for: Patient Education: weight be aring exercise Last Documented On 4 3:53PM ; [facility] Patient Education: Daily ervin cium and vitamin D Last Documented On 3 4:00PM ; [facility] Patient Education: weight be aring exercise Last Documented On 3 4:00PM ; [facility] Patient education :VAGINAL H YGIENE REVIEW Last Documented On 3 8:38AM ; [facility] Patient counseling : STD pre vention. I discussed with the patient that condoms can reduce the chance of getting an STD but not eliminate it. Increased exposure from multiple sex partners also discussed Last Documented On 2 4:36PM ; [facility] Bacterial Vaginosis Informat ion Sheet Given Last Documented On 2 4:34PM ; [facility] Patient Education: Daily ervin cium and vitamin D Last Documented On 2 11:12AM ; [facility] Patient Education: weight be aring exercise Last Documented On 2 11:12AM ; [facility] control consent review ed and signed Last Documented On 2 11:13AM ; [facility] Patient counseling : STD pre vention. I discussed with the patient that condoms can reduce the chance of getting an STD but not eliminate it. Increased exposure from multiple sex partners also discussed Last Documented On 1 2:39PM ; [facility] Candidiasis Vulvovaginitis I nformation Sheet Given Last Documented On 1 2:54PM ; [facility] Patient Education: Daily ervin cium and vitamin D Last Documented On 1 10:58AM ; [facility] Patient Education: weight be aring exercise Last Documented On 1 10:58AM ; [facility] control consent review ed and signed Last Documented On 1 11:04AM ; [facility] Patient Education: weight be aring exercise Last Documented On 0 9:28AM ; [facility] Assessments Includes: Assessments for all patient encounters Findings Encounter Date ADHD, predominantly inattentive type CHECK UP wi th CHASE OSULLIVAN MD 11/29/2023 Last Documented On 4 4:38AM ; [facility] Allergic rhinitis due to pollen CHECK UP with SAVANNAH OSULLIVAN MD 11/29/2023 Last Documented On 4 4:38AM ; [facility] Opioid dependence in remission CHECK UP with CHRIS OSULLIVAN MD 11/29/2023 Last Documented On 4 4:38AM ; [facility] Routine adult history and ph ysical (18-64 yrs) without abnormal findings CHECK UP with CHASE OSULLIVAN MD 11/29/2023 Last Documented On 4 4:38AM ; [facility] Abnormal weight gain NEW PATIENT EXAM - ADULT wi th CHASE OSULLIVAN MD 03/10/2023 Last Documented On 3 4:24AM ; [facility] Attention deficit disorder w ithout hyperactivity, predominantly inattentive type NEW PATIENT EXAM - ADULT with CHASE OSULLIVAN MD 03/10/2023 Last Documented On 3 4:24AM ; [facility] Malaise and fatigue NEW PATIENT EXAM - ADULT wit h CHASE OSULLIVAN MD 03/10/2023 Last Documented On 3 4:24AM ; [facility] Routine adult history and ph ysical (18-64 yrs) without abnormal findings NEW PATIENT EXAM - ADULT with CHASE OSULLIVAN MD 03/10/2023 Last Documented On 3 4:24AM ; [facility] Group A streptococcus: B hem olytic pharyngitis COVID SICK VISIT- ESTABLISHED PATIENT with JAMIE WILLIS NAIL EXPERT-BC 11/24/2022 Last Documented On 3 4:01PM ; [facility] Acute conjunctivitis WALK IN PATIENT - E STABLISHED PT with ELIZABETH Glover BOWERS NAIL EXPERT-C 04/01/2022 Last Documented On 2 10:26AM ; [facility] Acute pharyngitis COVID SICK VISIT- ES TABLISHED PATIENT with SUDARSHAN AVILA NAIL EXPERT-C 01/21/2021 Last Documented On 1 9:50AM ; [facility] Acute sinusitis COVID SICK VISIT- ES TABLISHED PATIENT with SUDARSHAN AVILA NAIL EXPERT-C 01/21/2021 Last Documented On 1 9:50AM ; [facility] Assessment of cough COVID SICK VISIT- ES TABLISHED PATIENT with SUDARSHAN AVILA NAIL EXPERT-C 01/21/2021 Last Documented On 1 9:50AM ; [facility] Attention deficit disorder w ithout hyperactivity, predominantly inattentive type 1 YR CHECK-UP with CHASE OSULLIVAN MD 04/14/2019 Last Documented On 9 11:17PM ; [facility] Dysfunctional uterine bleeding 1 YR CHECK-UP wit mary carmen OSULLIVAN MD 04/14/2019 Last Documented On 9 11:17PM ; [facility] Menorrhagia 1 YR CHECK-UP with CHASE RAMIREZ MD 04/14/2019 Last Documented On 9 11:17PM ; [facility] Routine adult history and ph ysical (18-64 yrs) without abnormal findings 1 YR CHECK-UP with CHASE OSULLIVAN MD 04/14/2019 Last Documented On 9 11:17PM ; [facility] Acute pharyngitis SICK VISIT with NESTOR RAMIREZ PA-C 09/06/2018 Last Documented On 9 11:13AM ; [facility] Assessment of fever SICK VISIT with NESTOR FISCHER PA-C 09/06/2018 Last Documented On 9 11:13AM ; [facility] Conjunctivitis in the left eye SICK VISIT with Red BROWNING PA-C 09/06/2018 Last Documented On 9 11:13AM ; [facility] A streptococcus: B hem olytic pharyngitis SICK VISIT with NESTOR BROWNING PA-C 09/06/2018 Last Documented On 9 11:13AM ; [facility] Attention deficit disorder w ithout hyperactivity, predominantly inattentive type 1 YR CHECK-UP with CHASE OSULLIVAN MD 04/06/2018 Last Documented On 8 10:25PM ; [facility] Normal 1 YR CHECK-UP with CHASE BOWERS MD 04/06/2018 Last Documented On 8 10:25PM ; [facility] Opioid dependence in [facility] on SINCE 08/06/13 1 YR CHECK-UP with CHASE OSULLIVAN MD 04/06/2018 Last Documented On 8 10:25PM ; [facility] Routine adult history and ph ysical (18-64 yrs) without abnormal findings 1 YR CHECK-UP with CHASE OSULLIVAN MD 04/06/2018 Last Documented On 8 10:25PM ; [facility] Viral gastroenteritis SICK VISIT with CHAYA [facility]S [facility] 08/27/2017 Last Documented On 8 9:30AM ; [facility] Viral syndrome SICK VISIT with CHAYA BUSTAMANTE [facility]- NAIL EXPERT-BC 08/27/2017 Last Documented On 8 9:30AM ; [facility] Upper respiratory infection SICK VISIT with JULIANNA BROWNING PA-C 06/22/2017 Last Documented On 7 1:16PM ; [facility] Viral infection SICK VISIT with NESTOR BROWNING PA-C 06/22/2017 Last Documented On 7 1:16PM ; [facility] Attention deficit disorder w ithout hyperactivity 6 MONTH CHECK with CHASE OSULLIVAN MD 04/05/2017 Last Documented On 7 3:56AM ; [facility] Attention deficit disorder w ithout hyperactivity, predominantly inattentive type 6 MONTH CHECK with CHASE OSULLIVAN MD 04/05/2017 Last Documented On 7 3:56AM ; [facility] Attention deficit disorder w ithout hyperactivity NEW PATIENT VISIT with CHASE OSULLIVAN MD 10/02/2016 Last Documented On 7 7:56AM ; [facility] Routine adult history and ph ysical (18-64 yrs) without abnormal findings NEW PATIENT VISIT with CHASE OSULLIVAN MD 10/02/2016 Last Documented On 7 7:56AM ; [facility] 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- 07/13/2012 Last Documented On 2 4:40PM ; [facility] Vulvovaginitis PROBLEM VISIT with WEN BOOKER 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- 12/05/2010 Last Documented On 1 11:13AM ; [facility] Contraceptive surveillance ANNUAL WELL W OMEN EXAM with WEN BOOKER [facility]- 11/10/2010 Last Documented On 1 11:06AM ; [facility] Normal routine history and physical BOO AL WELL WOMEN EXAM with WENLETY BOOKER 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- 11/22/2009 Last Documented On 0 9:46AM ; [facility] Instructions Includes: Instructions for all patient encounters Instructions to patient Go to the emergency room if condition worsens Last Documented On 3 3:59PM ; [facility] Watch for signs/symptoms of infection Last Documented On 3 3:59PM ; [facility] Watch for signs/symptoms of infection, return to the clinic if seen Last Documented On 3 3:59PM ; [facility] Intervention and counseling on cessation of tobacco use Last Documented On 1 8:51AM ; [facility] Recommend diet and exercise at least 30 min three times per week Last Documented On 9 11:07PM ; [facility] Lose weight Last Documented On 7 7:56AM ; [facility] Lose weight Last Documented On 4 3:53PM ; [facility] Safe sex counseling Last Documented On 4 3:53PM ; [facility] Instructions for patient : B reast Self Exam discussed Last Documented On 3 4:00PM ; [facility] Lose weight Last Documented On 3 4:00PM ; [facility] Gardasil information given a nd series encouraged Last Documented On 3 4:00PM ; [facility] Safe sex counseling Last Documented On 3 4:00PM ; [facility] Instructions for patient : K eep the area around the vulva dry. Allow the area to have exposure to air. Avoid irritants such as fabric softeners and perfumed soaps.~ Last Documented On 3 8:38AM ; [facility] Instructions for patient : p atient is to keep a menstrual diary to help with further evaluation and treatment Last Documented On 2 4:02PM ; [facility] Instructions for patient : K eep the area around the vulva dry. Allow the area to have exposure to air. Avoid irritants such as fabric softeners and perfumed soaps.~ Last Documented On 2 4:34PM ; [facility] Advised d/c scented bath pro ducts Last Documented On 2 4:34PM ; [facility] Instructions For Patient: pe lvic rest until test results back Last Documented On 2 4:36PM ; [facility] Instructions for patient : B reast Self Exam discussed Last Documented On 2 11:12AM ; [facility] Lose weight Last Documented On 2 11:13AM ; [facility] Gardasil information given a nd series encouraged Last Documented On 2 11:13AM ; [facility] Safe sex counseling Last Documented On 2 11:13AM ; [facility] Instructions for patient : K eep the area around the vulva dry. Allow the area to have exposure to air. Avoid irritants such as fabric softeners and perfumed soaps.~ Last Documented On 1 2:54PM ; [facility] Advised d/c scented bath pro ducts Last Documented On 1 2:54PM ; [facility] Instructions For Patient: pe lvic rest until test results back Last Documented On 1 2:39PM ; [facility] Instructions for patient : K eep the area around the vulva dry. Allow the area to have exposure to air. Avoid irritants such as fabric softeners and perfumed soaps.~ Last Documented On 1 1:04PM ; [facility] Advised d/c scented bath pro ducts Last Documented On 1 1:04PM ; [facility] Instructions for patient : B reast Self Exam discussed Last Documented On 1 10:57AM ; [facility] Lose weight Last Documented On 1 10:58AM ; [facility] Gardasil information given a nd series encouraged Last Documented On 1 10:58AM ; [facility] Safe sex counseling Last Documented On 1 10:58AM ; [facility] Instructions for patient : B reast Self Exam discussed Last Documented On 0 9:25AM ; [facility] Lose weight Last Documented On 0 9:28AM ; [facility] Gardasil information given a nd series encouraged Last Documented On 0 9:25AM ; [facility] Education and Decision Aids were provided during visit for: Patient Education: weight be aring exercise Last Documented On 4 3:53PM ; [facility] Patient Education: Daily ervin cium and vitamin D Last Documented On 3 4:00PM ; [facility] Patient Education: weight be aring exercise Last Documented On 3 4:00PM ; [facility] Patient education :VAGINAL H YGIENE REVIEW Last Documented On 3 8:38AM ; [facility] Patient counseling : STD pre vention. I discussed with the patient that condoms can reduce the chance of getting an STD but not eliminate it. Increased exposure from multiple sex partners also discussed Last Documented On 2 4:36PM ; [facility] Bacterial Vaginosis Informat ion Sheet Given Last Documented On 2 4:34PM ; [facility] Patient Education: Daily ervin cium and vitamin D Last Documented On 2 11:12AM ; [facility] Patient Education: weight be aring exercise Last Documented On 2 11:12AM ; [facility] control consent review ed and signed Last Documented On 2 11:13AM ; [facility] Patient counseling : STD pre vention. I discussed with the patient that condoms can reduce the chance of getting an STD but not eliminate it. Increased exposure from multiple sex partners also discussed Last Documented On 1 2:39PM ; [facility] Candidiasis Vulvovaginitis I nformation Sheet Given Last Documented On 1 2:54PM ; [facility] Patient Education: Daily ervin cium and vitamin D Last Documented On 1 10:58AM ; [facility] Patient Education: weight be aring exercise Last Documented On 1 10:58AM ; [facility] control consent review ed and signed Last Documented On 1 11:04AM ; [facility] Patient Education: weight be aring exercise Last Documented On 0 9:28AM ; [facility] Medical Equipment - Implanted Devices Includes: Current and historical Devices No Medical Equipment Recorded Medications Includes: Current and historical Medications Current Medications (continue as prescribed) Adderall 30 MG Oral Tablet 12/18/2023 Provider: CHASE OSULLIVAN MD Diagnosis: Attention-defici t hyperactivity disorder, unspecified type One tablet twice a day Last Documented On 12/18/2023 12:55PM By CHRIS OSULLIVAN MD ; [facility] Kyleena 19.5 MG Intrauterine Intrauterine device 11/28 Provider: Diagnosis: Last Documented On 11/29/2023 9:47AM By Ángela Zheng ; [facility] Famotidine 20 MG Oral Tablet 11/10/2023 Provider: Diagnosis: Last Documented On 11/29/2023 9:50AM By Ángela Zheng ; [facility] Montelukast Sodium 10 MG Oral Tablet 09/08/2023 Prov ider: Diagnosis: Last Documented On 11/29/2023 9:51AM By Ángela Zheng ; [facility] ZyrTEC Allergy 10 MG Oral Tablet 03/10/2023 Provider : Diagnosis: Last Documented On 03/10/2023 2:42PM By Marylou PARHAM ; [facility] EpiPen 2-Basil 0.3 MG/0.3ML Injection Solution Auto-inje ctor 03/10/2023 Provider: Diagnosis: Last Documented On 03/10/2023 2:44PM By Marylou PARHAM ; [facility] Past Medications on file Adderall 30 MG Oral Tablet 11/18/2023 - 12/18/2023 Provider: CHASE OSULLIVAN MD Diagnosis: Attention-defici t hyperactivity disorder, unspecified type One tablet twice a day Last Documented On 12/18/2023 12:43PM By CHRIS OSULLIVAN MD ; [facility] Wegovy 1 MG/0.5ML Subcutaneous Solution Auto-injector 11/08/2023 - 11/29/2023 Provider: CHASE OSULLIVAN MD Diagnosis: Abnormal weight gain inject 1mg once weekly Last Documented On 11/29/2023 9:49AM By Ángela Zheng ; [facility] Adderall 30 MG Oral Tablet 10/12/2023 - 11/18/2023 Provider: CHASE OSULLIVAN MD Diagnosis: Attention-defici t hyperactivity disorder, unspecified type One tablet twice a day Last Documented On 11/18/2023 1:44AM By CHRIS OSULLIVAN MD ; [facility] Adderall 30 MG Oral Tablet 09/15/2023 - 10/12/2023 Provider: JAMIL BOOKER [facility] Diagnosis: Attention-defici t hyperactivity disorder, unspecified type One tablet twice a day Last Documented On 10/12/2023 1:00AM By CHRIS OSULLIVAN MD ; [facility] Adderall 30 MG Oral Tablet 08/12/2023 - 09/15/2023 Provider: CHASE OSULLIVAN MD Diagnosis: Attention-defici t hyperactivity disorder, unspecified type One tablet twice a day Last Documented On 10:26AM By Jamil Booker [facility] ; [facility] Adderall 30 MG Oral Tablet 07/12/2023 - 08/12/2023 Provider: CHASE OSULLIVAN MD Diagnosis: Attention-defici t hyperactivity disorder, unspecified type One tablet twice a day Last Documented On 08/12/2023 2:47AM By CHRIS OSULLIVAN MD ; [facility] Adderall 30 MG Oral Tablet 06/09/2023 - 07/12/2023 Provider: CHASE OSULLIVAN MD Diagnosis: Attention-defici t hyperactivity disorder, unspecified type One tablet twice a day Last Documented On 07/12/2023 8:21AM By CHRIS OSULLIVAN MD ; [facility] Adderall 30 MG Oral Tablet 05/13/2023 - 06/09/2023 Provider: CHASE OSULLIVAN MD Diagnosis: Attention-defici t hyperactivity disorder, unspecified type One tablet twice a day Last Documented On 06/09/2023 7:53AM By CHRIS OSULLIVAN MD ; [facility] Wegovy 0.25 MG/0.5ML Subcutaneous Solution Auto-injector 05/04/2023 - 11/04/2023 Provider: CHASE OSULLIVAN MD Diagnosis: Abnormal weight gain inject 0.5 ml subcutaneous o nce weekly for 4 weeks Last Documented On 11/04/2023 11:57PM By CHRIS OSULLIVAN MD ; [facility] Wegovy 1 MG/0.5ML Subcutaneous Solution Auto-injector 05/04/2023 - 11/08/2023 Provider: CHASE OSULLIVAN MD Diagnosis: Abnormal weight gain after titrating up with the other two doses- inject 1mg once weekly for 4 weeks Last Documented On 11/08/2023 9:56AM By CHRIS OSULLIVAN MD ; [facility] Wegovy 0.5 MG/0.5ML Subcutaneous Solution Auto-injector 05/04/2023 - 11/04/2023 Provider: CHASE OSULLIVAN MD Diagnosis: Abnormal weight gain second month dosing, inject 0.5 mg subcutaneous once weekly for 4 weeks Last Documented On 11/04/2023 11:57PM By CHRIS OSULLIVAN MD ; [facility] Wegovy 0.25 MG/0.5ML Subcutaneous Solution Auto-injector 04/16/2023 - 05/04/2023 Provider: CHASE OSULLIVAN MD Diagnosis: Abnormal weight gain inject 0.5 ml subcutaneous o nce weekly for 4 weeks Last Documented On 05/04/2023 8:37AM By Marylou PARHAM ; [facility] Wegovy 0.5 MG/0.5ML Subcutaneous Solution Auto-injector 04/16/2023 - 05/04/2023 Provider: CHASE OSULLIVAN MD Diagnosis: Abnormal weight gain second month dosing, inject 0.5 mg subcutaneous once weekly for 4 weeks Last Documented On 05/04/2023 8:37AM By Marylou PARHAM ; [facility] Wegovy 1 MG/0.5ML Subcutaneous Solution Auto-injector 04/16/2023 - 05/04/2023 Provider: CHASE OSULLIVAN MD Diagnosis: Abnormal weight gain after titrating up with the other two doses- inject 1mg once weekly for 4 weeks Last Documented On 05/04/2023 8:37AM By Marylou PARHAM ; [facility] Adderall 30 MG Oral Tablet 04/11/2023 - 05/13/2023 Provider: CHASE OSULLIVAN MD Diagnosis: Attention-defici t hyperactivity disorder, unspecified type One tablet twice a day Last Documented On 05/13/2023 3:16AM By CHRIS OSULLIVAN MD ; [facility] Adderall 30 MG Oral Tablet 03/10/2023 - 04/11/2023 Provider: CHASE OSULLIVAN MD Diagnosis: Attention-defici t hyperactivity disorder, unspecified type One tablet twice a day Last Documented On 04/11/2023 9:39PM By CHRIS OSULLIVAN MD ; [facility] Adderall 20 MG Oral Tablet 01/17/2023 - 03/10/2023 Pro vider: CHASE OSULLIVAN MD Diagnosis: 1 tab by mouth up to three a s needed.NEEDS TO HAVE A CHECKUP BEFORE MORE REFILLS Last Documented On 03/10/2023 3:04PM By Marylou APRHAM ; [facility] Adderall 20 MG Oral Tablet 12/15/2022 - 01/17/2023 Pro vider: CHASE OSULLIVAN MD Diagnosis: 1 tab by mouth up to three as needed. Last Documented On 01/17/2023 2:56AM By CHRIS OSULLIVAN MD ; [facility] Amoxicillin-Pot Clavulanate 875-125 MG Oral Tablet 11/24/2022 - 03/10/2023 Provider: JAMIE WILLIS [facility] Diagnosis: Streptococcal pharyngitis One tablet twice a day Last Documented On 03/10/2023 2:42PM By Marylou PARHAM ; [facility] Adderall 20 MG Oral Tablet 11/16/2022 - 12/15/2022 Pro vider: CHASE OSULLIVAN MD Diagnosis: 1 tab by mouth up to three as needed. Last Documented On 12/15/2022 12:51AM By CHRIS OSULLIVAN MD ; [facility] Adderall 20 MG Oral Tablet 10/14/2022 - 11/16/2022 Pro vider: CHASE OSULLIVAN MD Diagnosis: 1 tab by mouth up to three as needed. Last Documented On 11/16/2022 8:01AM By CHRIS OSULLIVAN MD ; [facility] Adderall 20 MG Oral Tablet 2022 - 10/14/2022 Pro vider: CHASE OSULLIVAN MD Diagnosis: 1 tab by mouth up to three as needed. Last Documented On 10/14/2022 3:20AM By CHRIS OSULLIVAN MD ; [facility] Adderall 20 MG Oral Tablet 08/24/2022 - 2022 Pro vider: CHASE OSULLIVAN MD Diagnosis: 1 tab by mouth up to three as needed. Last Documented On 2022 12:53AM By CHRIS OSULLIVAN MD ; [facility] Adderall 20 MG Oral Tablet 07/24/2022 - 08/24/2022 Pro vider: CHASE OSULLIVAN MD Diagnosis: 1 tab by mouth up to three as needed. Last Documented On 08/24/2022 10:46AM By CHRIS OSULLIVAN MD ; [facility] Adderall 20 MG Oral Tablet 06/22/2022 - 07/24/2022 Pro vider: CHASE OSULLIVAN MD Diagnosis: 1 tab by mouth up to three as needed. Last Documented On 07/24/2022 12:21AM By CHRIS OSULLIVAN MD ; [facility] Adderall 20 MG Oral Tablet 05/26/2022 - 06/22/2022 Pro vider: CHASE OSULLIVAN MD Diagnosis: 1 tab by mouth up to three as needed. Last Documented On 06/22/2022 1:41PM By CHRIS OSULLIVAN MD ; [facility] Adderall 20 MG Oral Tablet 04/23/2022 - 05/26/2022 Pro vider: CHASE OSULLIVAN MD Diagnosis: 1 tab by mouth up to three as needed. Last Documented On 05/26/2022 4:24PM By CHRIS OSULLIVAN MD ; [facility] Polytrim 09517-3.1 UNIT/ML-% Ophthalmic Solution 04/01/2022 - 11/24/2022 Provider: ELIZABETH BOWERS [facility] [facility]-C Diagnosis: Other mucopurule nt conjunctivitis, bilateral as directed 1 drop in affected eye q4 hours Last Documented On 3:23PM By FAMILIA PARHAM ; [facility] Adderall 20 MG Oral Tablet 03/25/2022 - 04/23/2022 Pro vider: CHASE OSULLIVAN MD Diagnosis: 1 tab by mouth up to three as needed. Last Documented On 04/23/2022 12:28AM By CHRIS OSULLIVAN MD ; [facility] Adderall 20 MG Oral Tablet 02/24/2022 - 03/25/2022 Pro vider: CHASE OSULLIVAN MD Diagnosis: 1 tab by mouth up to three as needed. Last Documented On 03/25/2022 1:53AM By CHRIS OSULLIVAN MD ; [facility] Adderall 20 MG Oral Tablet 02/23/2022 - 02/24/2022 Pro vider: CHASE OSULLIVAN MD Diagnosis: 1 tab by mouth up to three as needed. Last Documented On 02/24/2022 4:16PM By CHRIS OSULLIVAN MD ; [facility] Adderall 20 MG Oral Tablet 01/25/2022 - 02/23/2022 Pro vider: CHASE OSULLIVAN MD Diagnosis: 1 tab by mouth up to three as needed. Last Documented On 02/23/2022 4:53PM By CHRIS OSULLIVAN MD ; [facility] Adderall 20 MG Oral Tablet 12/20/2021 - 01/25/2022 Pro vider: CHASE OSULLIVAN MD Diagnosis: 1 tab by mouth up to three as needed. Last Documented On 01/25/2022 3:20PM By CHRIS OSULLIVAN MD ; [facility] Adderall 20 MG Oral Tablet 11/20/2021 - 12/20/2021 Pro vider: CHASE OSULLIVAN MD Diagnosis: 1 tab by mouth up to three as needed. Last Documented On 12/20/2021 3:08AM By CHRIS OSULLIVAN MD ; [facility] Adderall 20 MG Oral Tablet 10/20/2021 - 11/20/2021 Pro vider: CHASE OSULLIVAN MD Diagnosis: 1 tab by mouth up to three as needed. Last Documented On 11/20/2021 12:33AM By CHRIS OSULLIVAN MD ; [facility] Adderall 20 MG Oral Tablet 09/22/2021 - 10/20/2021 Pro vider: CHASE OSULLIVAN MD Diagnosis: 1 tab by mouth up to three as needed. Last Documented On 10/20/2021 8:05PM By CHRIS OSULLIVAN MD ; [facility] Adderall 20 MG Oral Tablet 08/22/2021 - 09/22/2021 Pro vider: CHASE OSULLIVAN MD Diagnosis: 1 tab by mouth up to three as needed. Last Documented On 09/22/2021 11:43PM By CHRIS OSULLIVAN MD ; [facility] Adderall 20 MG Oral Tablet 07/23/2021 - 08/22/2021 Pro vider: CHASE OSULLIVAN MD Diagnosis: 1 tab by mouth up to three as needed. Last Documented On 08/22/2021 4:19PM By CHRIS OSULLIVAN MD ; [facility] Adderall 20 MG Oral Tablet 06/20/2021 - 07/23/2021 Pro vider: CHASE OSULLIVAN MD Diagnosis: 1 tab by mouth up to three as needed. Last Documented On 07/23/2021 5:01PM By CHRIS OSULLIVAN MD ; [facility] Adderall 20 MG Oral Tablet 05/22/2021 - 06/20/2021 Pro vider: CHASE OSULLIVAN MD Diagnosis: 1 tab by mouth up to three as needed. Last Documented On 06/20/2021 3:44PM By CHRIS OSULLIVAN MD ; [facility] Adderall 20 MG Oral Tablet 04/22/2021 - 05/22/2021 Pro vider: CHASE OSULLIVAN MD Diagnosis: 1 tab by mouth up to three as needed. Last Documented On 05/22/2021 12:56PM By CHRIS OSULLIVAN MD ; [facility] Adderall 20 MG Oral Tablet 03/24/2021 - 04/22/2021 Pro vider: CHASE OSULLIVAN MD Diagnosis: 1 tab by mouth up to three as needed. Last Documented On 04/22/2021 3:54PM By CHRIS OSULLIVAN MD ; [facility] Adderall 20 MG Oral Tablet 02/16/2021 - 03/24/2021 Pro vider: CHASE OSULLIVAN MD Diagnosis: 1 tab by mouth up to three as needed. Last Documented On 03/24/2021 8:37AM By CHRIS OSULLIVAN MD ; [facility] Benzonatate 200 MG Oral Capsule 01/21/2021 - 03/10/2023 Provider: SUDARSHAN ABDUL MS [employer]-C Diagnosis: Cough One tablet three times a day as needed Last Documented On 03/10/2023 2:42PM By Marylou PARHAM ; [facility] Doxycycline Hyclate 100 MG Oral Capsule 01/21/2021 - 03/10/2023 Provider: SUDARSHAN AVILA NAIL EXPERT-C Diagnosis: Acute sinusitis, unspecified One tablet twice a day Last Documented On 03/10/2023 2:42PM By Marylou PARHAM ; [facility] Adderall 20 MG Oral Tablet 01/17/2021 - 02/16/2021 Provider: CHASE OSULLIVAN MD Diagnosis: Attn-defct hyper activity disorder, predom inattentive type 1 tab by mouth up to three as needed. Last Documented On 02/16/2021 11:40PM By CHRIS OSULLIVAN MD ; [facility] Adderall 20 MG Oral Tablet 12/19/2020 - 01/17/2021 Provider: CHASE OSULLIVAN MD Diagnosis: Attn-defct hyper activity disorder, predom inattentive type 1 tab by mouth up to three as needed. Last Documented On 01/17/2021 10:12AM By CHRIS OSULLIVAN MD ; [facility] Adderall 20 MG Oral Tablet 11/21/2020 - 12/19/2020 Provider: CHASE OSULLIVAN MD Diagnosis: Attn-defct hyper activity disorder, predom inattentive type 1 tab by mouth up to three as needed. Last Documented On 12/19/2020 3:57PM By CHRIS OSULLIVAN MD ; [facility] Adderall 20 MG Oral Tablet 10/21/2020 - 11/21/2020 Provider: CHASE OSULLIVAN MD Diagnosis: Attn-defct hyper activity disorder, predom inattentive type 1 tab by mouth up to three as needed. Last Documented On 11/21/2020 11:21PM By CHRIS OSULLIVAN MD ; [facility] Adderall 20 MG Oral Tablet 09/22/2020 - 10/21/2020 Provider: CHASE OSULLIVAN MD Diagnosis: Attn-defct hyper activity disorder, predom inattentive type 1 tab by mouth up to three as needed. Last Documented On 10/21/2020 2:15PM By CHRIS OSULLIVAN MD ; [facility] Adderall 20 MG Oral Tablet 08/24/2020 - 09/22/2020 Provider: CHASE OSULLIVAN MD Diagnosis: Attn-defct hyper activity disorder, predom inattentive type 1 tab by mouth up to three as needed. Last Documented On 09/22/2020 11:49PM By CHRIS OSULLIVAN MD ; [facility] Adderall 20 MG Oral Tablet 07/23/2020 - 08/24/2020 Provider: CHASE OSULLIVAN MD Diagnosis: Attn-defct hyper activity disorder, predom inattentive type 1 tab by mouth up to three as needed. Last Documented On 08/24/2020 9:29PM By CHRIS OSULLIVAN MD ; [facility] Adderall 20 MG Oral Tablet 06/24/2020 - 07/23/2020 Provider: CHASE OSULLIVAN MD Diagnosis: Attn-defct hyper activity disorder, predom inattentive type 1 tab by mouth up to three as needed. Last Documented On 07/23/2020 4:08PM By CHRIS OSULLIVAN MD ; [facility] Adderall 20 MG Oral Tablet 05/23/2020 - 06/24/2020 Provider: CHASE OSULLIVAN MD Diagnosis: Attn-defct hyper activity disorder, predom inattentive type 1 tab by mouth up to three as needed. Last Documented On 06/24/2020 8:06AM By CHRIS OSULLIVAN MD ; [facility] Adderall 20 MG Oral Tablet 04/22/2020 - 05/23/2020 Provider: CHASE OSULLIVAN MD Diagnosis: Attn-defct hyper activity disorder, predom inattentive type 1 tab by mouth up to three as needed. Last Documented On 05/23/2020 1:09AM By CHRIS OSULLIVAN MD ; [facility] Adderall 20 MG Oral Tablet 03/21/2020 - 04/22/2020 Provider: CHASE OSULLIVAN MD Diagnosis: Attn-defct hyper activity disorder, predom inattentive type 1 tab by mouth up to three as needed. Last Documented On 04/22/2020 11:16PM By CHRIS OSULLIVAN MD ; [facility] Adderall 20 MG Oral Tablet 02/20/2020 - 03/21/2020 Provider: CHASE OSULLIVAN MD Diagnosis: Attn-defct hyper activity disorder, predom inattentive type 1 tab by mouth up to three as needed. Last Documented On 03/21/2020 2:31PM By CHRIS OSULLIVAN MD ; [facility] Amoxicillin-Pot Clavulanate 875-125 MG Oral Tablet 02/16/2020 - 03/10/2023 Provider: JOANNA REDMOND [facility] [facility]-C Diagnosis: Acute maxillary sinusitis, unspecified One tablet twice a day for 10 days Last Documented On 03/10/2023 2:42PM By Marylou PARHAM ; [facility] Adderall 20 MG Oral Tablet 01/22/2020 - 02/20/2020 Provider: CHASE OSULLIVAN MD Diagnosis: Attn-defct hyper activity disorder, predom inattentive type 1 tab by mouth up to three as needed. Last Documented On 02/20/2020 11:36PM By CHRIS OSULLIVAN MD ; [facility] Adderall 20 MG Oral Tablet 12/22/2019 - 01/22/2020 Provider: CHASE OSULLIVAN MD Diagnosis: Attn-defct hyper activity disorder, predom inattentive type 1 tab by mouth up to three as needed. Last Documented On 01/22/2020 3:26PM By CHRIS OSULLIVAN MD ; [facility] Adderall 20 MG Oral Tablet 11/22/2019 - 12/22/2019 Provider: CHASE OSULLIVAN MD Diagnosis: Attn-defct hyper activity disorder, predom inattentive type 1 tab by mouth up to three as needed. Last Documented On 12/22/2019 12:44AM By CHRIS OSULLIVAN MD ; [facility] Adderall 20 MG Oral Tablet 10/25/2019 - 11/22/2019 Provider: CHASE OSULLIVAN MD Diagnosis: Attn-defct hyper activity disorder, predom inattentive type 1 tab by mouth up to three as needed. Last Documented On 11/22/2019 4:17PM By CHRIS OSULLIVAN MD ; [facility] Adderall 20 MG Oral Tablet 09/27/2019 - 10/25/2019 Provider: CHASE OSULLIVAN MD Diagnosis: Attn-defct hyper activity disorder, predom inattentive type 1 tab by mouth up to three as needed. Last Documented On 10/25/2019 8:17AM By CHRIS OSULLIVAN MD ; [facility] Adderall 20 MG Oral Tablet 08/26/2019 - 09/27/2019 Provider: CHASE OSULLIVAN MD Diagnosis: Attn-defct hyper activity disorder, predom inattentive type 1 tab by mouth up to three as needed. Last Documented On 09/27/2019 6:14PM By CHRIS OSULLIVAN MD ; [facility] Adderall 20 MG Oral Tablet 07/27/2019 - 08/26/2019 Provider: CHASE OSULLIVAN MD Diagnosis: Attn-defct hyper activity disorder, predom inattentive type 1 tab by mouth up to three as needed. Last Documented On 08/26/2019 6:49PM By CHRIS OSULLIVAN MD ; [facility] Adderall 20 MG Oral Tablet 06/30/2019 - 07/27/2019 Provider: CHASE OSULLIVAN MD Diagnosis: Attn-defct hyper activity disorder, predom inattentive type 1 tab by mouth up to three as needed. Last Documented On 07/27/2019 9:33PM By CHRIS OSULLIVAN MD ; [facility] Adderall 20 MG Oral Tablet 05/31/2019 - 06/30/2019 Provider: SATHISH FOWLER Diagnosis: Attn-defct hyper activity disorder, predom inattentive type 1 tab by mouth up to three as needed. Last Documented On 06/30/2019 10:05AM By CHRIS OSULLIVAN MD ; [facility] Adderall 20 MG Oral Tablet 05/01/2019 - 05/31/2019 Provider: SATHISH FOWLER Diagnosis: Attn-defct hyper activity disorder, predom inattentive type 1 tab by mouth up to three as needed. Last Documented On 9 1:15PM By SATHISH FOWLER ; [facility] Adderall 20 MG Oral Tablet 04/03/2019 - 05/01/2019 Provider: SATHISH FOWLER Diagnosis: Attn-defct hyper activity disorder, predom inattentive type 1 tab by mouth up to three as needed. Last Documented On 9 12:50PM By SATHISH FOWLER ; [facility] Adderall 20MG Oral Tablet 03/03/2019 - 04/03/2019 Provider: CHASE OSULLIVAN MD Diagnosis: Attn-defct hyper activity disorder, predom inattentive type 1 tab by mouth up to three as needed. Last Documented On 9 12:29PM By SATHISH FOWLER ; [facility] Adderall 20MG Oral Tablet 02/02/2019 - 03/03/2019 Provider: CHASE OSULLIVAN MD Diagnosis: Attn-defct hyper activity disorder, predom inattentive type 1 tab by mouth up to three as needed. Last Documented On 03/03/2019 3:14PM By CHRIS OSULLIVAN MD ; [facility] Adderall 20MG Oral Tablet 01/03/2019 - 02/02/2019 Provider: CHASE OSULLIVAN MD Diagnosis: Attn-defct hyper activity disorder, predom inattentive type 1 tab by mouth up to three as needed. Last Documented On 02/02/2019 1:00AM By CHRIS OSULLIVAN MD ; [facility] Adderall 20MG Oral Tablet 12/05/2018 - 01/03/2019 Provider: CHASE OSULLIVAN MD Diagnosis: Attn-defct hyper activity disorder, predom inattentive type 1 tab by mouth up to three as needed. Last Documented On 01/03/2019 12:21AM By CHRIS OSULLIVAN MD ; [facility] Adderall 20MG Oral Tablet 11/03/2018 - 12/05/2018 Provider: CHASE OSULLIVAN MD Diagnosis: Attn-defct hyper activity disorder, predom inattentive type 1 tab by mouth up to three as needed. Last Documented On 12/05/2018 10:04AM By CHRIS OSULLIVAN MD ; [facility] Adderall 20MG Oral Tablet 10/05/2018 - 11/03/2018 Provider: CHASE OSULLIVAN MD Diagnosis: Attn-defct hyper activity disorder, predom inattentive type 1 tab by mouth up to three as needed. Last Documented On 11/03/2018 12:03AM By CHRIS OSULLIVAN MD ; [facility] Adderall 20MG Oral Tablet 09/06/2018 - 10/05/2018 Provider: CHASE OSULLIVAN MD Diagnosis: Attn-defct hyper activity disorder, predom inattentive type 1 tab by mouth up to three as needed. Last Documented On 10/05/2018 2:06PM By CHRIS OSULLIVAN MD ; [facility] Erythromycin 5MG/GM Ophthalmic Ointment 09/06/2018 - 04/14/2019 Provider: NESTOR BROWNING PA-C Diagnosis: Unspecified conjunctivitis Apply 1 cm ribbon to lower l id of affected eye TID x 4 days Last Documented On 04/14/2019 9:02AM By STUDENT9 ; [facility] Amoxicillin 250MG Oral Capsule 09/06/2018 - 04/14/2019 Provider: NESTOR BROWNING PA-C Diagnosis: Streptococcal pharyngitis as directed Take 3 capsules once daily x 10 days Last Documented On 04/14/2019 9:01AM By STUDENT9 ; [facility] Adderall 20MG Oral Tablet 08/03/2018 - 09/06/2018 Provider: CHASE OSULLIVAN MD Diagnosis: Attn-defct hyper activity disorder, predom inattentive type 1 tab by mouth up to three as needed. Last Documented On 09/06/2018 1:09PM By CHRIS OSULLIVAN MD ; [facility] Adderall 20MG Oral Tablet 07/04/2018 - 08/03/2018 Provider: CHASE OSULLIVAN MD Diagnosis: Attn-defct hyper activity disorder, predom inattentive type 1 tab by mouth up to three as needed. Last Documented On 08/03/2018 1:12PM By CHRIS OSULLIVAN MD ; [facility] Adderall 20MG Oral Tablet 07/03/2018 - 07/04/2018 Provider: CHASE OSULLIVAN MD Diagnosis: Attn-defct hyper activity disorder, predom inattentive type 1 tab by mouth up to three as needed. Last Documented On 07/04/2018 1:11PM By CHRIS OSULLIVAN MD ; [facility] Adderall 20MG Oral Tablet 07/01/2018 - 07/03/2018 Provider: CHASE OSULLIVAN MD Diagnosis: Attn-defct hyper activity disorder, predom inattentive type 1 tab by mouth up to three as needed. Last Documented On 07/03/2018 2:23PM By CHRIS OSULLIVAN MD ; [facility] Adderall 20MG Oral Tablet 06/02/2018 - 07/01/2018 Provider: CHASE OSULLIVAN MD Diagnosis: Attn-defct hyper activity disorder, predom inattentive type 1 TAB PO UP TO TID PRN Last Documented On 07/01/2018 1:46AM By CHRIS OSULLIVAN MD ; [facility] Adderall 20MG Oral Tablet 05/04/2018 - 06/02/2018 Provider: CHASE OSULLIVAN MD Diagnosis: Attn-defct hyper activity disorder, predom inattentive type 1 TAB PO UP TO TID PRN Last Documented On 06/02/2018 3:08PM By CHRIS OSULLIVAN MD ; [facility] Adderall 20MG Oral Tablet 04/06/2018 - 05/04/2018 Provider: CHASE OSULLIVAN MD Diagnosis: Attn-defct hyper activity disorder, predom inattentive type 1 TAB PO UP TO TID PRN Last Documented On 05/04/2018 1:18PM By CHRIS OSULLIVAN MD ; [facility] Adderall 30MG Oral Tablet 03/07/2018 - 04/17/2018 Provider: CHASE OSULLIVAN MD Diagnosis: Attn-defct hyper activity disorder, predom inattentive type One tablet twice a day Last Documented On 04/17/2018 10:14PM By CHRIS OSULLIVAN MD ; [facility] Adderall 30MG Oral Tablet 03/05/2018 - 04/06/2018 Provider: ECTOR ZHENG MD Diagnosis: Attn-defct hyper activity disorder, predom inattentive type One tablet twice a day Last Documented On 04/06/2018 4:42PM By CHRIS OSULLIVAN MD ; [facility] Adderall 30MG Oral Tablet 01/31/2018 - 03/05/2018 Provider: CHASE OSULLIVAN MD Diagnosis: Attn-defct hyper activity disorder, predom inattentive type One tablet twice a day Last Documented On 03/05/2018 12:56AM By CHRIS OSULLIVAN MD ; [facility] Adderall 30MG Oral Tablet 01/03/2018 - 01/31/2018 Provider: CHASE OSULLIVAN MD Diagnosis: Attn-defct hyper activity disorder, predom inattentive type One tablet twice a day Last Documented On 01/31/2018 7:17PM By CHRIS OSULLIVAN MD ; [facility] Adderall 30MG Oral Tablet 12/03/2017 - 01/03/2018 Provider: NESTOR BROWNING PA-C Diagnosis: Attn-defct hyper activity disorder, predom inattentive type One tablet twice a day Last Documented On 01/03/2018 11:58PM By CHRIS OSULLIVAN MD ; [facility] Adderall 30MG Oral Tablet 11/01/2017 - 12/03/2017 Provider: CHASE OSULLIVAN MD Diagnosis: Attn-defct hyper activity disorder, predom inattentive type One tablet twice a day Last Documented On 8 11:41AM By NESTOR BROWNING PA-C ; [facility] Adderall 30MG Oral Tablet 10/01/2017 - 11/01/2017 Provider: CHASE OSULLIVAN MD Diagnosis: Attn-defct hyper activity disorder, predom inattentive type One tablet twice a day Last Documented On 11/01/2017 12:22PM By CHRIS OSULLIVAN MD ; [facility] Adderall 30MG Oral Tablet 09/06/2017 - 10/01/2017 Provider: CHASE OSULLIVAN MD Diagnosis: Attn-defct hyper activity disorder, predom inattentive type One tablet twice a day Last Documented On 10/01/2017 1:18PM By CHRIS OSULLIVAN MD ; [facility] Zofran 4MG Oral Tablet 08/27/2017 - 04/14/2019 Provider: CHAYA [facility] Diagnosis: Viral intestinal infection, unspecified 1 every 4 - 6 hours as needed Last Documented On 04/14/2019 9:02AM By ANISA ; [facility] Adderall 30MG Oral Tablet 08/04/2017 - 09/06/2017 Provider: CHASE OSULLIVAN MD Diagnosis: Attn-defct hyper activity disorder, predom inattentive type One tablet twice a day Last Documented On 09/06/2017 10:39PM By CHRIS OSULLIVAN MD ; [facility] Adderall 30MG Oral Tablet 07/03/2017 - 08/04/2017 Provider: CHASE OSULLIVAN MD Diagnosis: Attn-defct hyper activity disorder, predom inattentive type One tablet twice a day Last Documented On 08/04/2017 11:24PM By CHRIS OSULLIVAN MD ; [facility] Adderall 30MG Oral Tablet 06/04/2017 - 07/03/2017 Provider: SATHISH BYRNES [facility] Diagnosis: Attn-defct hyper activity disorder, predom inattentive type One tablet twice a day Last Documented On 07/03/2017 11:23PM By CHRIS OSULLIVAN MD ; [facility] Adderall 30MG Oral Tablet 05/03/2017 - 06/04/2017 Provider: CHASE OSULLIVAN MD Diagnosis: Attn-defct hyper activity disorder, predom inattentive type One tablet twice a day Last Documented On 7 4:26PM By SATHISH BYRNES [facility] ; [facility] Adderall 30MG Oral Tablet 04/05/2017 - 05/03/2017 Provider: CHASE OSULLIVAN MD Diagnosis: Attn-defct hyper activity disorder, predom inattentive type One tablet twice a day Last Documented On 05/03/2017 4:43PM By CHRIS OSULLIVAN MD ; [facility] NexIUM 24HR 20MG Oral Capsule Delayed Release 04/05/20 - 04/06/2018 Provider: Diagnosis: Last Documented On 8 4:12PM By Sheryl Chávez MA ; [facility] Nexplanon 68MG Subcutaneous Implant 04/05/2017 - 06/22 Provider: Diagnosis: Last Documented On 7 11:36AM By CARL PARHAM ; [facility] Adderall 30MG Oral Tablet 03/05/2017 - 04/05/2017 Provider: CHASE OSULLIVAN MD Diagnosis: Attention-defici t hyperactivity disorder, unspecified type One tablet twice a day Last Documented On 04/05/2017 3:48PM By CHRSI OSULLIVAN MD ; [facility] Adderall 30MG Oral Tablet 02/01/2017 - 03/05/2017 Provider: CHASE OSULLIVAN MD Diagnosis: Attention-defici t hyperactivity disorder, unspecified type One tablet twice a day Last Documented On 03/05/2017 10:51AM By CHRIS OSULLIVAN MD ; [facility] Adderall 30MG Oral Tablet 01/01/2017 - 02/01/2017 Provider: CHASE OSULLIVAN MD Diagnosis: Attention-defici t hyperactivity disorder, unspecified type One tablet twice a day Last Documented On 02/01/2017 8:53PM By CHRIS OSULLIVAN MD ; [facility] Adderall 30MG Oral Tablet 12/02/2016 - 01/01/2017 Provider: CHASE OSULLIVAN MD Diagnosis: Attention-defici t hyperactivity disorder, unspecified type One tablet twice a day Last Documented On 01/01/2017 10:46AM By CHRIS OSULLIVAN MD ; [facility] Adderall 30MG Oral Tablet 11/01/2016 - 12/02/2016 Provider: CHASE OSULLIVAN MD Diagnosis: Attention-defici t hyperactivity disorder, unspecified type One tablet twice a day Last Documented On 12/02/2016 1:47PM By CHRIS OSULLIVAN MD ; [facility] Adderall 30MG Oral Tablet 10/02/2016 - 11/01/2016 Provider: CHASE OSULLIVAN MD Diagnosis: Attention-defici t hyperactivity disorder, unspecified type One tablet twice a day Last Documented On 11/01/2016 2:44PM By CHRIS OSULLIVAN MD ; [facility] Adderall 30MG Oral Tablet 10/02/2016 - 10/02/2016 Prov ider: Diagnosis: twice a day Last Documented On 10/02/2016 2:53PM By CHRIS OSULLIVAN MD ; [facility] Azurette 0.15-0.02/0.01 MG (/) OR TABS 09/18/2013 - 10/02/2016 Provider: WENLETY RODRIGUEZ-BC Diagnosis: SCANTY MENSTRUAT ION Last Documented On 10/02/2016 2:14PM By EDIN PARHAM ; [facility] Suboxone 12-3 MG SL FILM 09/18/2013 - 10/02/2016 Provi kym: Diagnosis: one sublingual daily Last Documented On 10/02/2016 2:15PM By EDIN PARHAM ; [facility] Zovia 35E (28) 1-35 MG-MCG OR TABS 12/26/2012 - 08/30/2013 Provider: WEN RODRIGUEZ-BC Diagnosis: CONTRACEPT SURVE ILL NOS Last Documented On 4 12:13PM By MIKE CHA LPN ; [facility] Loestrin 1.5/30 (21) 1.5-30 MG-MCG OR TABS 12/07/2012 - 08/30/2013 Provider: WEN RODRIGUEZ-BC Diagnosis: CONTRACEPT SURVE ILL NOS Last Documented On 4 12:13PM By MIKE CHA LPN ; [facility] NexIUM 40 MG OR CPDR 12/07/2012 - 10/02/2016 Provider: Diagnosis: Last Documented On 10/02/2016 2:14PM By EDIN PARHAM ; [facility] Terconazole 0.8% VA CREA 10/20/2012 - 12/07/2012 Provider: IVANIA GARCIA RN ZECHARIAH BC Diagnosis: CANDIDAL VULVOVA GINITIS 1 JASSI IN VAGINA EVERY NIGHT X 3 APPLY BID TO EXTERNAL AREA Last Documented On 12/07/2012 4:03PM By SAGE PARHAM ; [facility] Azithromycin 500 MG OR TABS 10/20/2012 - 12/07/2012 Pr ovider: IVANIA RODRIGUEZ BC Diagnosis: CERVICITIS 2 TABLETS NOW Last Documented On 12/07/2012 4:03PM By SAGE PARHAM ; [facility] Loestrin 1.5/30 (21) 1.5-30 MG-MCG OR TABS 09/28/2012 - 12/07/2012 Provider: WEN VELASQUEZ EVENT MARKETING REPRESENTATIVE-BC Diagnosis: Last Documented On 3 4:14PM By WEN RODRIGUEZ-BC ; [facility] Zovia 35E (28) 1-35 MG-MCG OR TABS 09/19/2012 - 10/20/2012 Provider: WEN BOOKER EVENT MARKETING REPRESENTATIVE-BC Diagnosis: WWE due ! Last Documented On 10/20/2012 8:14AM By ROMARIO PARHAM ; [facility] Zovia 35E (28) 1-35 MG-MCG OR TABS 07/15/2012 - 09/19/2012 Provider: WEN BOOKER EVENT MARKETING REPRESENTATIVE-BC Diagnosis: Last Documented On 3 9:18AM By WEN BOOKER ZECHARIAH-BC ; [facility] Zithromax 1 GM OR PACK 07/13/2012 - 12/07/2012 Provide r: WEN VELASQUEZNP-BC Diagnosis: take one gram po x 1 dose - no liquid dose please! - Called in to Mik Last Documented On 12/07/2012 4:03PM By SAGE PARHAM ; [facility] Flagyl 500 MG OR TABS 07/13/2012 - 12/07/2012 Provider : WEN VELASQUEZNP-BC Diagnosis: Called to Mik Last Documented On 12/07/2012 4:03PM By SAGE PARHAM ; [facility] Loestrin 1.5/30 (21) 1.5-30 MG-MCG OR TABS 12/15/2011 - 09/28/2012 Provider: WEN BOOKER EVENT MARKETING REPRESENTATIVE-BC Diagnosis: Last Documented On 3 3:47PM By WEN RODRIGUEZ-RAFAEL ; [facility] Loestrin 1.5/30 (21) 1.5-30 MG-MCG OR TABS 12/07/2011 - 12/15/2011 Provider: WEN BOOKER EVENT MARKETING REPRESENTATIVE-BC Diagnosis: Last Documented On 2 11:29AM By WEN RODRIGUEZ-BC ; [facility] Loestrin 1.5/30 (21) 1.5-30 MG-MCG OR TABS 08/17/2011 - 12/07/2011 Provider: WEN VELASQUEZ EVENT MARKETING REPRESENTATIVE-BC Diagnosis: Last Documented On 2 11:41AM By WEN RODRIGUEZ-BC ; [facility] Flagyl 500 MG OR TABS 06/25/2011 - 12/07/2012 Provider : WEN RODRIGUEZ-BC Diagnosis: Last Documented On 12/07/2012 4:03PM By SAGE PARHAM ; [facility] Diflucan 150 MG OR TABS 06/24/2011 - 12/07/2012 Provid er: WEN RODRIGUEZ-BC Diagnosis: take one dose po x 1 and may repeat in 3 days if needed Last Documented On 12/07/2012 4:03PM By SAGE PARHAM ; [facility] Bactrim DS 800-160 MG OR TABS 03/19/2011 - 12/07/2012 Provider: WEN RODRIGUEZ-BC Diagnosis: Last Documented On 12/07/2012 4:03PM By SAGE PARHAM ; [facility] Loestrin 1.5/30 (21) 1.5-30 MG-MCG OR TABS 12/05/2010 - 08/17/2011 Provider: WEN VELASQUEZ EVENT MARKETING REPRESENTATIVE-BC Diagnosis: Last Documented On 2 10:38AM By WEN CONNELL ; [facility] Loestrin 1.5/30 (21) 1.5-30 MG-MCG OR TABS 11/12/2010 - 12/05/2010 Provider: WEN VELASQUEZ EVENT MARKETING REPRESENTATIVE-BC Diagnosis: Last Documented On 1 11:12AM By WEN CONNELL ; [facility] Ortho-Cyclen (28) 0.25-35 MG-MCG OR TABS 11/10/2010 - 11/12/2010 Provider: WEN VELASQUEZ EVENT MARKETING REPRESENTATIVE-BC Diagnosis: Last Documented On 1 7:12AM By WEN CONNELL ; [facility] Medications Administered Includes: Administered Medications [...] 11/29/2023 Last Documented On 4 4:38AM ; [facility] 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 None 11/29/2023 Last Documented On 4 4:38AM ; [facility] No consumption of alcohol 03/10/2023 Last Documented On 3 4:24AM ; [facility] Not a current smoker 03/10/2023 Last Documented On 3 4:24AM ; [facility] Not using drugs 03/10/2023 Last Documented On 3 4:24AM ; [facility] Tobacco non-user 04/01/2022 Last Documented On 2 10:26AM ; [facility] Current nonsmoker 01/21/2021 Last Documented On 1 9:50AM ; [facility] Not using alcohol 04/05/2017 Last Documented On 7 3:56AM ; [facility] Exercising regularly 3 TIMES PER WEEK WA LKING AND YOGA AND MEDITATION 10/02/2016 Last Documented On 7 7:56AM ; [facility] No caffeine use 10/02/2016 Last Documented On 7 7:56AM ; [facility] Smoking Status Unknown Procedures and Surgical History Surgical History Last Updated Tonsillectomy 12/07/2011 Last Documented On 2 11:41AM ; [facility] Medical History Includes: Medical History in patient's chart Description Last Updated Pt does not get blood pressure checked a t other facility 11/29/2023 Last Documented On 4 4:38AM ; [facility] Vaccine history 11/29/2023 Last Documented On 4 4:38AM ; [facility] Date COVID symptoms started: January 10 0 01/21/2021 Last Documented On 1 9:50AM ; [facility] LMP: on Nexplanon 04/17/2018 Last Documented On 8 10:25PM ; [facility] TONSILS 5TH GRADE ~ 10/02/2016 Last Documented On 7 7:56AM ; [facility] 0 11/22/2009 Last Documented On 0 9:46AM ; [facility] Family History Includes: Family History in patient's chart Description Last Updated Maternal history of family history of ca ncer KIDNEY 10/02/2016 Last Documented On 7 7:56AM ; [facility] Maternal history of family history of ki dney disease 10/02/2016 Last Documented On 7 7:56AM ; [facility] Family history of diabetes mellitus mate rnal grandparents ~mother 12/07/2011 Last Documented On 2 11:41AM ; [facility] Family history of uterine cancer MGM Last Documented On 1 11:13AM ; [facility] Family medical history of high blood pre ssure 11/22/2009 Last Documented On 0 9:46AM ; [facility] Family medical history of High Cholester ol 11/22/2009 Last Documented On 0 9:46AM ; [facility] Family history of malignant female breas t neoplasm maternal grandma 11/22/2009 Last Documented On 0 9:46AM ; [facility] Family history of malignant neoplasm of the ovary mother et Aunt 11/22/2009 Last Documented On 0 9:46AM ; [facility] Review of Systems Review of Systems not [...] Patient Last Documented On 3 2:45PM ; [facility] COVID-19 Moderna 2 09/24/2020 Complete (Re ported) Patient Last Documented On 3 2:45PM ; [facility] Allergies Includes: Active, inactive, and resolved Allergies No Known Allergies Encounters Includes: Encounters from 09/03/2023 through 09/03/2024 Encounter Provider Location Date Check-In Time Check-Out Time Diagnosis CHECK UP CHASE OSULLIVAN MD [facility] 11/29/19 24 9:39AM 10:12AM Adhd, Predominantly Inattentive Type,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 Has been seeing a nutrionist and circus trainer since October an dhas lost 15 [...] 2023. She routinely follows up with an individual pension adviser. She has a history of obesity. She routinely follows up with a shirt ironer and circus trainer. She lost 15 pounds in the [...]
[2024-09-03 10:02] VITALS: BP 126/90; PULSE 87; RESP 20; TEMP 36.8; O2SAT 94
[2024-09-03 10:29] LABS: EDCOVIDSCREEN Negative (Negative); EDINFLUASCREEN Negative (Negative); EDINFLUBSCREEN Negative (Negative); EDSTREPNEGPOS1 Positive (Negative)
== END 2024-09-03 10:40 | disposition home or self-care (01) ==
PROVIDERS: Emergency Provider Nurse Practitioner Family; PCP Family Medicine
DX: J02.0 Streptococcal pharyngitis (principal); Z20.822 Contact with and (suspected) exposure to COVID-19
CPT/HCPCS: 87426; 87804; 87880; 99213; G0463

== ENCOUNTER 2025-03-07 12:02 | Outpatient (CLI) | payer OTHER, SELFPAY ==
--- OUTSIDE RECORDS SUMMARY | 2025-03-07 12:05 | XMS_ITS | Patient Health Record ---
Author Organization [facility] [facility] ([address]) Address [address] [place] [address] Care Team Providers Care Red Cap Name Role Phone Issa Osullivan Primary Care Provider Unavailshena e Shsata Newell Unavailable [phone] Allergies No Known Allergies Reason For Referral No Information Medications Medication SIG (Take, Route, Frequency, Duration) Notes Start Date End Date Status EpiPen 2-Basil 0.3 MG/0.3ML as directed intramuscularly once; Duration: 1 days Active CETIRIZINE HYDROCHLORIDE 10 mg 1 tab(s) orally once a day 07/30/2020 A ctive MONTELUKAST SODIUM 10 mg 1 tab(s) orally 60 minutes prior to SCIT; Duration: 30 days 09/06/2023 Active MONTELUKAST 10 mg 1 tab(s) orally once a day; Duration: 30 day(s) 09/15/2023 Active LEVOCETIRIZINE 5 mg 1 tab(s) orally once a day (in the evening); Duration: 30 day(s) 09/15/2023 Active FAMOTIDINE 20 mg 1 tab(s) orally 2 ti mes a day; Duration: 30 days 09/15/2023 Active Famotidine 20 MG 1 tab(s) orally 2 ti mes a day Active ZYRTEC 10 mg 1 tab(s) orally bid Active ZYRTEC 10 mg 1 tab(s) orally bid Active Adderall 20 MG 1 tab(s) orally 2 ti mes a day; Duration: 30 day(s) Active FAMOTIDINE 20 mg 1 tab(s) orally 2 ti mes a day Active ADDERALL 20 mg 1 tab(s) orally 2 ti mes a day; Duration: 30 day(s) Active FLONASE 50 mcg/inh as directed in each nostril once a day; Duration: 30 day(s) Active Cetirizine HCl 10 MG 1 tab(s) orally once a day Active Flonase Allergy Relief 50 MCG/ACT as directed in each nostril once a day; Duration: 30 day(s) Active Montelukast Sodium 10 MG 1 tab(s) orally once a day; Duration: 30 day(s) 09/15/2023 Active ZyrTEC Allergy 10 MG 1 tab(s) orally bid Active LEVOCETIRIZINE 5 mg 1 tab(s) orally once a day (in the evening); Duration: 30 day(s) 09/15/2023 Active Olopatadine HCl 0.2 % 1 gtt in each affe cted eye once a day; Duration: 10 day(s) Active MONTELUKAST 10 mg 1 tab(s) orally once a day; Duration: 30 day(s) 09/15/2023 Active Levocetirizine Dihydrochloride 5 MG 1 tab(s) orally once a day (in the evening); Duration: 30 day(s) 09/15/2023 Active Famotidine 20 MG 1 tab(s) orally 2 ti mes a day; Duration: 30 days 09/15/2023 Active OLOPATADINE OPHTHALMIC 0.2% 1 gtt in each affected eye once a day; Duration: 10 day(s) Active Montelukast Sodium 10 MG 1 tab(s) orally 60 minutes prior to SCIT; Duration: 30 days 09/06/2023 Active EPIPEN 2-BASIL 0.3 mg as directed intramuscularly once; Duration: 1 dose(s) Active FAMOTIDINE 20 mg 1 [...] W/U Status Risk Notes Problem Angioneurotic edema (71000399) Angioneurotic edema, initial encounter (T78.3XXA) Active confirmed Problem Attention deficit hyperactivity disorder (518310800) Attention-deficit hyperactivity disorder, unspecified type (F90.9) Active confirmed Problem Chronic allergic conjunctivitis (62625584) Other chronic allergic conjunctivitis (H10.45) Active confirmed Problem Allergic rhinitis caused by pollen (disorder) (37389807) Allergic rhinitis due to pollen (J30.1) Active confirmed Problem Allergic rhinitis (69127663) Other allergic rhinitis (J30.89) Active confirmed Problem 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 nuts and seeds, initial encounter (T78.05XA) Active confirmed Problem Angioneurotic edema (78791883) Angioneurotic edema, subsequent encounter (T78.3XXD) Active confirmed Problem 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 nut (626057231) 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 nuts and seeds, subsequent encounter (T78.05XD) Active confirmed Encounters Encounter Location Date Provider Diagnosis [address] [address] 04/25/2024 Shasta Newell [address] [address] 02/09/2025 Shasta Newell Plan Of Treatment Pending Test Test Name Order Date -Respiratory Allergens w/Total IgE Area 8 03/31/2023 Next Appt Details Provider Name:Shasta pino, 03/14/2025 01:00:00 PM, [address] [facility], [address], [place], [address], Insurance Providers Payer Name Payer Address Payer Phone Subscriber Number Group Number Insured Name Patient Relationship to Insured Coverage Start Date Coverage End Date [employer] [address] [address] [place] [address] [id number] Madonna Lam Self - patient is the insured Medical (General) History Medical History History ICD Code Attention-deficit hyperactivity disorder , unspecified type F90.9 Surgical History Surgery Date(Month/Year) 08/12/2018 Tonsillectomy
--- OUTSIDE RECORDS SUMMARY | 2025-03-07 12:05 | XMS_ITS | Clinical Summary ---
Author Organization [facility] Address [address] [facility], [place] [address] Phone Care Team Providers Care Hide Dyer Name Role Phone Issa Osullivan MD Primary Care Provider [phone] Allergies No known active allergies Medications amphetamine-dex [...] TABLET DISPERSIBLE daily. Active ergocalciferol (VITAMIN D) 74238 UNIT Capsule Active calcium-vitamin D (OSCAL 500/200 [...] 11:01 AM CDT Height 170.2 cm (5' 7) 05/17/2017 11:01 AM CDT Body Mass Index 40.72 05/17/2017 11:01 AM CDT Plan of Treatment Health Maintenance Due Date Last Done Comments Hepatitis C Virus (HCV) Screening 1990 Pap Smear 2009 Cervical Cancer Screening (CCS) 2018 HPV/Cotest 2018 SARS-COV-2 Immunization ( season) 2024 09/24/2020, 08/27/2020 Influenza Immunization (#1) 2025 07/26/2020, 1 08/01/2017 Respiratory Syncytial Virus (RSV) Immunization (Adult) (1 - 1-dose 75+ series) 2063 Hepatitis B Immunization Completed 998, 09/18/1997, 08/21/1997 Human Papillomavirus (HPV) Immunization Completed 01/02/2008, 08/08/2007, 03/07/2007 DTaP/Tdap/Td Immunization Discontinued 2017, 10/30/2009, 07/26/2009, Additional [...] age to complete this topic Care Teams Hide Dyer Relationship Specialty Start Date End Date Issa Osullivan MD [address] [place] [address] PCP - General Family Medicine 05/17/17
--- OUTSIDE RECORDS SUMMARY | 2025-03-07 12:06 | XMS_ITS ---
Author Organization [facility] [employer] ([address]) Address [address] [place] [address] Care Team Providers Care Junior Recruiter Name Role Phone Issa Osullivan Primary Care Provider UnavailShasta Cortes Unavailable [phone] ZZ-Migration, Provider Unavailable Unavailab le REASON FOR VISIT Multum To [facility] Conversion Encounter Medications Medication SIG (Take, Route, Frequency, Duration) Notes Start Date End Date Status Adderall 20 MG 1 tab(s) orally 2 ti mes a day; Duration: 30 day(s) Active Cetirizine HCl 10 MG 1 tab(s) orally once a day Active Flonase Allergy Relief 50 MCG/ACT as directed in each nostril once a day; Duration: 30 day(s) Active Montelukast Sodium 10 MG 1 tab(s) orally 60 minutes prior to SCIT; Duration: 30 days 09/06/2023 Active Famotidine 20 MG 1 tab(s) orally 2 ti mes a day; Duration: 30 days 09/15/2023 Active EpiPen 2-Basil 0.3 MG/0.3ML as directed intramuscularly once; Duration: 1 dose(s) Active Olopatadine HCl 0.2 % 1 gtt in each affe cted eye once a day; Duration: 10 day(s) Active ZyrTEC Allergy 10 MG 1 tab(s) orally bid Active Levocetirizine Dihydrochloride 5 MG 1 tab(s) orally once a day (in the evening); Duration: 30 day(s) 09/15/2023 Active Montelukast Sodium 10 MG 1 tab(s) orally once a day; Duration: 30 day(s) 09/15/2023 Active Famotidine 20 MG 1 tab(s) orally 2 ti mes a day Active Encounters Encounter Location Date Provider Diagnosis [place] [address] [place] [address] 01/08/2024 Provider CLAYTON-Migration Plan Of Treatment Next Appt Details Provider Name:Shasta pino, 03/14/2025 01:00:00 PM[facility], [address], [address], Progress Notes * LAMCornell DONOVANRamaOB:1990 (34 yo F)Acc No.[id number]:01/08/2024 Patient: Madonna RIZO Provider: Tej Norman :1990 A ge:33 Y S ex:Female Date:01/08/2024 Address:[address] [place], [place] [address] Pcp:Issa Osullivan Subjective: * Chief Complaints: * 1 . Multum To [facility] Conversion Encounter. * Medical History: * Medications: T aking Famotidine 20 MG Tablet 1 tab(s) orally 2 times a day , Taking ZyrTEC Allergy 10 MG Tablet 1 tab(s) orally bid , Taking Montelukast Sodium 10 MG Tablet 1 tab(s) orally once a day , Taking Levocetirizine Dihydrochloride 5 MG Tablet 1 tab(s) orally once a day (in the evening) , Taking Olopatadine HCl 0.2 % Solution 1 gtt in each affected eye once a day , Taking EpiPen 2-Basil 0.3 MG/0.3ML Solution Auto- injector as directed intramuscularly once , Taking Famotidine 20 MG Tablet 1 tab(s) orally 2 times a day , Taking ZyrTEC Allergy 10 MG Tablet 1 tab(s) orally bid , Taking Adderall 20 MG Tablet 1 tab(s) orally 2 times a day , Taking Flonase Allergy Relief 50 MCG/ACT Suspension as directed in each nostril once a day , Taking Cetirizine HCl 10 MG Tablet 1 tab(s) orally once a day , Taking Montelukast Sodium 10 MG Tablet 1 tab(s) orally 60 minutes prior to SCIT , Taking Montelukast Sodium 10 MG Tablet 1 tab(s) orally once a day , Taking Levocetirizine Dihydrochloride 5 MG Tablet 1 tab(s) orally once a day (in the evening) , Taking Famotidine 20 MG Tablet 1 tab(s) orally 2 times a day Objective: * Vitals: Assessment: Plan: * Treatment: * Billing Information: * Visit Code: * Procedure Codes: * Electronic signature of Prov carlos OnealZ-Migration on 03/07/2025 at 12:05 PM CDT Sign off status: Pending * Provider: Tej hendricks Migration Date: 01/08/2024 Generated for Edmund mayer/Sharmaine/Kassy on: 03/07/2025 12:05 PM CDT
--- OUTSIDE RECORDS SUMMARY | 2025-03-07 12:06 | XMS_ITS ---
Author Organization [facility] [place] ([address]) Address [address] [place] [address] Care Team Providers Care Military Exchange Wireless Manager Name Role Phone OsullivanIssa baig Primary Care Provider UnavailShasta Cortes Unavailable [phone] REASON FOR VISIT SCIT - Traditional Schedule Allergy Immunotherapy Encounters Encounter Location Date Provider Diagnosis [facility] [place] [address] [place] [address] 01/18/2024 Shasta Newell Allergic rhinitis du e to pollen J30.1 ; Other allergic rhinitis J30.89 and Other chronic allergic conjunctivitis H10.45 Assessments Encounter Date Diagnosis (ICD Code) Assessment Notes Treatment Notes Treatment Clinical Notes Section Notes 01/18/2024 Allergic rhinitis due to pollen (ICD-10 - J30.1) 01/18/2024 Other allergic rhinitis (ICD-10 - J30.89) 01/18/2024 Other chronic allergic conjunctivitis (ICD-10 - H10.45) Plan Of Treatment Next Appt Details Follow Up: As scheduled, Essence son: Provider Name:Shasta pino, 03/14/2025 01:00:00 PM, [address], [place], [address], Progress Notes * Adelina LAMOB:1990 (34 yo F)Acc No.[id number]:01/18/2024 SCIT-Aeroallergen Patient: Madonna RIZO Provider: Norm Newell MD :1990 A ge:33 Y S ex:Female Date:01/18/2024 Address:[address] [place], [place] [address] Pcp:Issa Osullivan Subjective: * Chief Complaints: * 1 . SCIT - Traditional Schedule Allergy Immunotherapy. * HPI: * Introduction: The patient is here for scheduled immunotherapy. Please see the attached specialty form regarding the specifics of the administration of these vaccines. As per our protocol, they must undergo a screening health questionnaire (medication changes, reaction(s) to last immunotherapy dose(s), current health status, ACT (if appropriate), self-injectable epinephrine on patient(?) and peak flow (if appropriate)). Also, the patient must wait in our office for 30 minutes after receiving the vaccine(s). Furthermore, every patient must have an epinephrine pen (self-injectable) with them at the time of administration--and carry if for the following 1.5 hours after they leave our office. The patient must also have taken their antihistamine the day of the injection, preferably 2 hours prior. The consent form for SCIT (subcutaneous immunotherapy) is on file. * Medical History: Objective: * Vitals: Assessment: * Assessment: 1. A llergic rhinitis due to pollen - J30.1 (Primary) 2 . O ther allergic rhinitis - J30.89 3 . O ther chronic allergic conjunctivitis - H10.45 ? Plan: * Treatment: * Procedure Codes: 9 5117 IMMUNOTHERAPY INJECTIONS * Preventive Medicine: Counseling: E xercise A void heavy lifting on days of allergy immunotherapy. M edication instruction: I njectable epinephrine education and instruction w/ discussion of signs and symptoms of anaphylaxis and reasons to seek urgent or emergent care, Watch for side effects of prescribed medications. E ducation: A ble to return demonstration of self-injectable epinephrine. * Follow Up: A s scheduled * Billing Information: * Visit Code: * Procedure Codes: 35249 IMMUNOTHERAPY INJECTIONS. * Electronic signature of Crystal Newell MD on 03/07/2025 at 12:06 PM CDT Sign off status: Pending * Provider: Norm Newell MD Date: 0 01/18/2024 Generated for Edmund mayer/Sharmaine/eTransmitting on: 0 03/07/2025 12:06 PM CDT History and Physical Notes * HPI (History of Present Illness) Category Sub-Category Detail Notes Category Not es *Introduction The patient is here for scheduled immunotherapy. Please see the attached specialty form regarding the specifics of the administration of these vaccines. As per our protocol, they must undergo a screening health questionnaire (medication changes, reaction(s) to last immunotherapy dose(s), current health status, ACT (if appropriate), self-injectable epinephrine on patient(?) and peak flow (if appropriate)). Also, the patient must wait in our office for 30 minutes after receiving the vaccine(s). Furthermore, every patient must have an epinephrine pen (self-injectable) with them at the time of administration--and carry if for the following 1.5 hours after they leave our office. The patient must also have taken their antihistamine the day of the injection, preferably 2 hours prior. The consent form for SCIT (subcutaneous immunotherapy) is on file.
== END 2025-03-07 12:03 | disposition home or self-care (01) ==
PROVIDERS: PCP Family Medicine; Visit Provider Obstetrics & Gynecology
DX: N92.0 Excessive and frequent menstruation with regular cycle (principal)
CPT/HCPCS: 36415; 86850; 86900; 86901

== ENCOUNTER 2025-03-08 02:20 | Day surgery (SDC) | payer OTHER, SELFPAY ==
[2025-03-05 18:18] VITALS: BMI 35.3
--- NOTE | 2025-03-05 18:27 | PC.NURSE ---
Report to the Outpatient Waiting Room, entrance under the green pavilion located off [facility], at time __0600__ on date __03/08/25__. Planned Procedure Time: __729__.? Time changes happen often and if your time is changed the preop area will call you the afternoon before. - You and your visitor will be asked to self-screen and do not enter if you have any COVID symptoms. Please call surgeon if you need to reschedule. - A mask is optional within the hospital at this time. Patients may have clear liquids (water, carbonated beverages, clear teas, apple juice) until 3 hours prior to surgery with a maximum of 20 ounces. - No food from midnight until time of surgery and no smoking, or chewing tobacco (or any form of nicotine). No chewing gum, candy or mints. Hold all vitamins and supplements for 3 days per anesthesiologist. Please no make-up, nail italian, hairspray, perfume, deodorant, or body powder the day of surgery.? No jewelry (including any body piercings) or valuables the day of surgery, leave them at home.? Please take a shower or bath the night before, or the morning of, surgery with an antibacterial soap.? Wear comfortable, loose fitting clothing.? - Jewelry must be removed prior to entering the operating room.? Rings and piercings that are not removed may be cut off. - The hospital will not accept responsibility for valuables.? - Please leave all valuables, including medications, at home the day of surgery. If you are going home after surgery, a licensed dedicated intermodal truck driver must drive you home.? - NO public transportation without another adult if you receive anesthesia. - We recommend that an adult stay with you for 24 hours following discharge. - We also recommend that you do not drive, make important decision, drink alcoholic beverages, or take any drugs that were not prescribed by your health care provider for at least 24 hours after your discharge time. Follow any additional instructions given to you from your surgeon. Telephone instructions given to __Madonna___and asked if any additional questions and then verbalized understanding. Patient advised to call surgeon office or pre surgery nurse liaison [phone] if any additional questions.
--- NOTE | 2025-03-07 11:58 | PM.IMHP ---
H&P: HPI History of Present Illness Date/Time: 03/07/25 11:58 Chief Complaint: Pelvic pain left ovarian cyst Narrative: 34-year-old female with complex left ovarian cyst admitted for laparoscopic LSO sent pain discomfort dyspareunia risks and benefits great Review of Systems Review of Systems: All systems reviewed & are unremarkable except as noted in HPI and below Constitutional: Constitutional: Reports no additional constitutional complaints, Reports body ache(s), Reports chills and Reports headache(s) ENT: Reports system reviewed and no additional complaints, except as documented and Reports sore throat Cardiovascular: Cardiovascular: Reports no additional cardiovascular complaints Respiratory: Respiratory: Reports no additional respiratory complaints Gastrointestinal: Gastrointestinal: Reports no additional gastrointestinal complaints PMF Past Medical History Medical History Headache Arizmendi esophagus Abdominal pain Diarrhea ADHD Surgical History Surgical History History of delivery Family History Family History Father Skin cancer Grandparent Skin cancer Sibling Skin cancer Grandparent Family history of malignant neoplasm Family history of malignant neoplasm of ovary Diabetes mellitus Mother Family history of malignant neoplasm of kidney Social History Social History Smoking status: Never smoker Alcohol intake: never Substance use: never Substance use type: does not use Living arrangements: alone Occupation/Education: occupation Gender identity (if verbalized by the patient): Female Spiritual care concerns: No Meds Home Medications and Allergies Home Medications ?Medication ?Instructions ?Recorded ?Confirmed ?Type dextroamphetamine-amphetamine 30 30 mg PO BID 03/28/23 03/05/25 History mg tablet epinephrine 0.3 mg/0.3 mL 0.3 mg (0.3 mL) IM Q5-15M PRN 03/28/23 03/05/25 Rx injection, auto-injector (EpiPen) hypersensitivity reaction #2 ea cetirizine 10 mg capsule (Zyrtec) 10 mg PO DAILY 07/20/23 03/05/25 History multivitamin (Daily Multi-Vitamin 1 tablet PO DAILY 03/05/25 03/05/25 History tablet) Allergies Allergy/AdvReac Type Severity Reaction Status Date / Time tree nut Allergy Swelling Verified 03/05/25 18:15 of Lip/Tongue/Throat Exam Const: General: cooperative, healthy appearing, comfortable and overweight Orientation/consciousness: oriented to person, oriented to place and oriented to time HENMT: Head: normal to inspection Resp: Effort & Inspection: normal respiratory effort Cardio: Rate: regular rate Rhythm: regular rhythm Heart sounds: S1 normal heart sound present GI: Inspection: normal to inspection : External Female Exam: normal external appearance Speculum Exam - Vagina: normal appearance of the vagina Speculum Exam - Cervix: normal appearance of the cervix Bimanual Exam- Adnexa, other: Adnexal mass present on the left tender Assessment and Plan Assessment and plan (1) Left ovarian cyst: Code(s): N83.202 - Unspecified ovarian cyst, left side Status: Acute Plan Proceed with laparoscopic LSO
[2025-03-08] VITALS (8 sets, daily range): BP systolic 103–139; BP diastolic 66–92; PULSE 60–76; RESP 14–20; TEMP 36.4–36.5; O2SAT 95–100
--- OUTSIDE RECORDS SUMMARY | 2025-03-08 02:22 | XMS_ITS | Patient Health Record ---
Author Organization [facility] [employer] [place] ([address]) Address [address] [place] [address] Care Team Providers Care Analytical Consultant Name Role Phone Issa Osullivan Primary Care Provider Unavailshena e Shasta Newell Unavailable [phone] Allergies No Known Allergies Reason For Referral [...] W/U Status Risk Notes Problem Angioneurotic edema (94201848) Angioneurotic edema, initial encounter (T78.3XXA) Active confirmed Problem Attention deficit hyperactivity disorder (089416223) Attention-deficit hyperactivity disorder, unspecified type (F90.9) Active confirmed Problem Chronic allergic conjunctivitis (50572839) Other chronic allergic conjunctivitis (H10.45) Active confirmed Problem Allergic rhinitis caused by pollen (disorder) (70324586) Allergic rhinitis due to pollen (J30.1) Active confirmed Problem Allergic rhinitis (92300038) Other allergic rhinitis (J30.89) Active confirmed Problem 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 nuts and seeds, initial encounter (T78.05XA) Active confirmed Problem Angioneurotic edema (05394213) Angioneurotic edema, subsequent encounter (T78.3XXD) Active confirmed Problem 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, [address], [address], Insurance Providers Payer Name Payer Address Payer Phone Subscriber Number Group Number Insured Name Patient Relationship to Insured Coverage Start Date Coverage End Date [employer] Choice [employer] [address] [address] [place] [phone] [phone] [id number] Madonna Lam Self - patient is the insured Medical (General) History Medical History History ICD Code Attention-deficit hyperactivity disorder , unspecified type F90.9 Surgical History Surgery Date(Month/Year) 08/12/2018 Tonsillectomy
--- OUTSIDE RECORDS SUMMARY | 2025-03-08 02:22 | XMS_ITS | Clinical Summary ---
Author Organization [facility] Address [address] [facility], [place] [address] Phone Care Team Providers Care Potato Chip Maker Name Role Phone Issa Osullivan MD Primary Care Provider [phone] Allergies No known active allergies Medications amphetamine-dex [...] TABLET DISPERSIBLE daily. Active ergocalciferol (VITAMIN D) 75480 UNIT Capsule Active calcium-vitamin D (OSCAL 500/200 [...] age to complete this topic Care Teams Potato Chip Maker Relationship Specialty Start Date End Date Issa Osullivan MD [address] [place] [address] PCP - General Family Medicine 05/17/17
--- OUTSIDE RECORDS SUMMARY | 2025-03-08 02:22 | XMS_ITS | Continuity of Care Document ---
Author Organization [facility] Address [address] [place] [address] [place] [address] Phone Care Team Providers Care Brand Marketing Coordinator Name Role Phone Devang Mims MD Unavailable [...] Diagnoses Date Provider Providers Copied on Encounter [facility], [address] [place], [address], tel:[phone] [facility] No Information 0 3 Prasanna Siddiqi. [address] [facility] [place], [address] , [place]. tel:[phone] [facility], [address] [place], [address], [place] tel:[phone] [facility] Medicine No Information 2 3 Prasanna Siddiqi. [address] [employer] [employer] [facility] [place], [address] , [place]. tel:[phone] OFFICE/OUTPA TIENT VISIT, EST [facility], [address], [place], [place], [address], [place] tel:[phone] [facility] Medicine ADD (chief complaint) anxiety (chief complaint) Dietary surveillance and counselingHypertens ion, UnspecifiedAttentio n deficit disorder of childhood without mention of hyperactivityGenera lized anxiety disorder 0-201 3 Prasanna Siddiqi. [address], [address], [place], [place], [address] , [place]. tel:[phone] Referring Provider: Pepito De Leon [facility] [address], [place], [place], [address]. tel:[phone] PREV VISIT, EST, AGE 18-39 [facility], [address], [place], [place], [address], [place] tel:[phone] [facility] physical (chief complaint) Dietary surveillance and counselingRoutine Medical ExamAttention deficit disorder of childhood without mention of hyperactivityGenera lized anxiety disorderRoutine Medical Exam 8201 [address]anna Siddiqi. [address], [address], [place], [place], [address] , [place]. tel:[phone] Referring Provider: Pepito De Leon [address], [place], [place], [address]. tel:[phone] Family History Family Member Type Diagnosis Age [...]
--- OUTSIDE RECORDS SUMMARY | 2025-03-08 02:23 | XMS_ITS ---
Author Organization [facility] [employer] ([address]) Address [address] [place] [address] Care Team Providers Care Mold Maintenance Technician Name Role Phone Issa Osullivan Primary Care Provider UnavailShasta Cortes Unavailable [phone] ZZ-Migration, Provider Unavailable Unavailab le REASON FOR VISIT Multum To [facility] Conversion Encounter Medications Medication SIG [...] Active Encounters Encounter Location Date Provider Diagnosis [place] [address] [place] [address] 01/08/2024 Provider CLAYTON-Migration Plan Of Treatment Next Appt Details Provider Name:Shasta pino, 03/14/2025 01:00:00 PM, [facility] [facility], [address], [place], [address], Progress Notes * LAMCornell DONOVANRamaOB:1990 (34 yo F)Acc No.[id number]:01/08/2024 Patient: Madonna RIZO Provider: Tej Norman :1990 A ge:33 Y S ex:Female Date:01/08/2024 Address:[address] [place], [place] [address] Pcp:Issa Osullivan Subjective: * Chief Complaints: * [...] Electronic signature of Prov carlos OnealZ-Migration on 03/08/2025 at 02:22 AM CDT Sign off status: Pending * Provider: Tej hendricks Migration Date: 01/08/2024 Generated for Edmund mayer/Sharmaine/Kassy on: 03/08/2025 02:22 AM CDT
--- OUTSIDE RECORDS SUMMARY | 2025-03-08 02:23 | XMS_ITS ---
Author Organization [facility] [place] ([address]) Address [address] [place] [address] Care Team Providers Care Slot Tag Inserter Name Role Phone OsullivanIssa baig Primary Care Provider UnavailShasta Cortes Unavailable [phone] REASON FOR VISIT SCIT - Traditional Schedule Allergy Immunotherapy Encounters Encounter Location Date Provider Diagnosis [facility] [place] [address] [place] [address] 01/18/2024 Shasta Newell Allergic rhinitis du e [...] Provider Name:Shasta pino, 03/14/2025 01:00:00 PM, [address], [address], [place], [address], Progress Notes * Adelina LAMOB:1990 (34 yo F)Acc No.[id number]:01/18/2024 SCIT-Aeroallergen Patient: Madonna RIZO Provider: Norm Newell MD :1990 A ge:33 Y S ex:Female Date:01/18/2024 Address:[address] [place], [place] [address] Pcp:Issa Osullivan Subjective: * Chief Complaints: * [...] Information: * Visit Code: * Procedure Codes: 29650 IMMUNOTHERAPY INJECTIONS. * Electronic signature of Crystal Newell MD on 03/08/2025 at 02:22 AM CDT Sign off status: Pending * Provider: Norm Newell MD Date: 0 01/18/2024 Generated for Edmund mayer/Sharmaine/eTransmitting on: 0 03/08/2025 02:22 AM CDT History and Physical Notes * HPI [...]
--- NOTE | 2025-03-08 06:22 | WPDHPUPDATE1 ---
History and Physical Update Update Date/Time: 03/08/25 06:22 History and Physical has been reviewed, including an updated exam of the patient. There are NO changes in the patient's condition. Risks, benefits, and alternatives have been discussed and questions answered. Patient agrees to proceed with procedure.
[2025-03-08] MEDS: LACTATED RINGERS 1,000 ML 30 ML IV CONT (06:36)
[2025-03-08] MEDS: ACETAMINOPHEN 500 MG TABLET 1000 MG PO (06:37)
[2025-03-08] MEDS: KETOROLAC 15 MG/ML VIAL (*BKC) IV PUSH (06:37)
[2025-03-08 06:45] LABS: BEDSIDEPREGUCG Negative (Negative)
--- NOTE | 2025-03-08 06:48 | WPDANESEPPF ---
Anes - Initial Pre Proc Eval Procedure: Operation Date: 03/08/25 07:30 Proposed Procedures p Laparoscopic Left Salpingo Oophorectomy - London Barrett MD Date/Time: 03/08/25 06:48 Surgeon: London Barrett MD Pre Op Diagnosis: pelvic pain, Left ovarian Cyst Patient Data Age: 34 Gender: F Height: 1.7 m Weight: 106.7 kg Allergies Allergy/AdvReac Type Severity Reaction Status Date / Time tree nut Allergy Swelling Verified 03/08/25 06:22 of Lip/Tongue/Throat Home Medications ?Medication ?Instructions ?Recorded ?Confirmed ?Type dextroamphetamine-amphetamine 30 30 mg PO BID 03/28/23 03/08/25 History mg tablet epinephrine 0.3 mg/0.3 mL 0.3 mg (0.3 mL) IM Q5-15M PRN 03/28/23 03/08/25 Rx injection, auto-injector (EpiPen) hypersensitivity reaction #2 ea cetirizine 10 mg capsule (Zyrtec) 10 mg PO DAILY 07/20/23 03/08/25 History multivitamin (Daily Multi-Vitamin 1 tablet PO DAILY 03/05/25 03/08/25 History tablet) hydrocodone 5 mg-acetaminophen 325 1 tablet PO Q4H PRN pain #20 tabs 03/08/25 Rx mg tablet Laboratory Tests 03/08/25 06:43 POC Urine HCG, Qual Negative (Negative) Patient hx anesthesia problems: none Family hx anesthesia problems: none Results Review: All pre-operative results and documents have been reviewed as part of the pre-operative evaluation. [facility] Past Medical History Medical History Headache Arizmendi esophagus Abdominal pain Diarrhea ADHD Surgical History Surgical History History of delivery Family History Family History Father Skin cancer Grandparent Skin cancer Sibling Skin cancer Grandparent Family history of malignant neoplasm Family history of malignant neoplasm of ovary Diabetes mellitus Mother Family history of malignant neoplasm of kidney Social History Social History Smoking status: Never smoker Alcohol intake: never Substance use: never Substance use type: does not use Living arrangements: with family Occupation/Education: occupation Gender identity (if verbalized by the patient): Female Spiritual care concerns: No Anes - Eval Final PreProcedure Day of Procedure 03/08/25 06:48 Patient weight: obese Heart: regular rate and rhythm Lungs: clear to auscultation Airway: Mallampati scale class II Neurological: alert and oriented Last oral intake: >/= 8 hours ASA classification: II Emergent: no Anesthetic plan: proceed Anesthesia type and monitoring: general ETT and standard monitoring Results Review: All pre-operative results and documents have been reviewed as part of the pre-operative evaluation. Informed Consent: The patient's anesthetic plan and its attendant risks and benefits were discussed with the patient/family/POA. Questions were solicited and answers provided to the satisfaction of the patient/family/POA.
--- NOTE | 2025-03-08 08:04 | S_PTH ---
PATIENT: Madonna Lam LOC: [facility] U#:[id number] AGE/SX: 34/F ROOM: RE03/08/[address]: London Barrett MD : 1990 BED: DIS: 03/08/2025 SPEC #: [id number] RECD: 03/08/25 10:27 STATUS: MARIA ESTHER REQ #: [id number] GREGG: 03/08/25 08:[address]: London Bullard DEPT: [facility] Surgical RECD BY: Cee Rahman ENTERED: 03/08/25 10:28 SP TYPE: Surgical OTHR DR: Issa OsullivanMD Tissues: A - Ovary Procedures: Hematoxylin and Eosin Stain Gross and Microscopic Level 4
--- NOTE | 2025-03-08 08:14 | P.OP_ITS ---
Procedure Note - Detailed Date of Procedure 03/08/25 Pre-op Diagnosis pelvic pain, Left ovarian Cyst Post-op Diagnosis Same Procedure Performed Laparoscopy with left salpingo-oophorectomy and extensive lysis of adhesions Surgeon London Barrett MD Anesthesia General Indications 34-year-old female with complex left ovarian cyst severe pelvic pain Findings The colon and small bowel were markedly adherent to fundus of the uterus. The a complex left ovarian cyst was seen which was buried below this these adhesions and the posterior surface of the uterus. Right. Ovary and tube appeared within limits Description of Procedure Patient was prepped and draped in the normal sterile fashion placed in dorsal lithotomy position. Under excellent general endotracheal anesthesia weighted speculum placed in posterior fornix vagina. Anterior lip of the cervix grasped with a single-tooth tenaculum. Moore's cannula inserted the cervix and attached to the single-tooth to be used later for uterine manipulation. After of the bladder clear urine the weighted speculum was removed and the gloves were changed. A supraumbilical incision made the Veress needle passed the. Abdomen filled with CO2 gas to 15 of mercury. The 5mm trocar advanced under direct visualization with the Optiview no injury seen patient placed in Trendelenburg and a suprapubic incision made. The 5mm trocar advanced under direct visual ization assuring no injury. A left lower quadrant incision made the 10mm trocar advanced under direct visualization assuring no injury. Multiple adhesions were seen. Using the left hand for keeping the adhesions at tension sharp dissection was undertaken. Great care was taken to injury to adhesed colon to the superior posterior surface of the uterus. The uterus was large markedly adherent. E ventually this was cleared and the complex left ovarian cyst could be seen irrigation undertaken until clear. The infundibulopelvic structure on the left was skeletonized clamping burning cutting and then placing this in an Endo-Catch removing it through the left lower quadrant. Irrigation was undertaken to clear hemostasis appeared assured. The gas removed from the abdomen. The lower sites removed. The upper site removed after removing the gas and the incisions closed with 4 patient went in satisfactory condition. All sponge, needle, instrument counts were correct. There were no immediate complications Estimated Blood Loss 5 Drains No Packing No Pathology Yes Complications No immediate complications Condition Stable Disposition PACU
[2025-03-08] MEDS: fentaNYL CITRATE INJ (*CRX) 100 MCG/2 ML VIAL 25 MCG IV PUSH ×8 (08:32→08:55)
[2025-03-08] MEDS: oxyCODONE HCL (*CRX) 5 MG TAB IR PO (09:29)
[2025-03-08] MEDS: ONDANSETRON INJ 4 MG/2 ML VIAL IV PUSH (09:50)
== END 2025-03-08 10:22 | disposition home or self-care (01) ==
PROVIDERS: PCP Family Medicine; Visit Provider Obstetrics & Gynecology
PROC: (CPT 49320; principal; 2025-03-08 07:30)
DX: N83.02 Follicular cyst of left ovary (principal); N73.6 Female pelvic peritoneal adhesions (postinfective); F90.9 Attention-deficit hyperactivity disorder, unspecified type; E66.9 Obesity, unspecified; Z68.36 Body mass index [BMI] 36.0-36.9, adult; Z79.891 Long term (current) use of opiate analgesic; Z98.890 Other specified postprocedural states; Z87.19 Personal history of other diseases of the digestive system; Z84.0 Family history of diseases of the skin and subcutaneous tissue; Z80.41 Family history of malignant neoplasm of ovary; Z80.51 Family history of malignant neoplasm of kidney
CPT/HCPCS: 58661; 88305; A9270; J1100; J1885; J2003; J2250; J2405; J2704; J3010; J7120